=== PATIENT | male | born 1965 | race Caucasian/White ===

== ENCOUNTER 2016-12-27 09:37 | Inpatient (IN) | payer OTHER ==
[2016-12-27 10:04] VITALS: BMI 28.5
--- NOTE | 2016-12-27 10:59 | HP ---
[id number] 4d 4-Moderate,w/Arms Extend Anxiety: 4-Mod. Anxious/Guarded Agitation: 1-Slight > Activity Paroxysmal Sweats: 1-Minimal Palms Moist Orientation: 1-Uncertain about Date Tacttile Disturbances: 1-Very Mild Itch/Numbness Auditory Disturbances: 1-Very Mild Visual Disturbances: 1-Very Mild Sensitivity Headache: 1-Very Mild CIWA-Ar Total Score: 16 Admission ROS BHS - HPI Chief Complaint: I want to stop, I'm tired Allergies/Adverse Reactions: Allergies Allergy/AdvReac Type Severity Reaction Status Date / Time No Known Allergies Allergy Verified 12/27/16 10:45 History of Present Illness: 51 yo gentleman here for detox from alcohol/cocaine - one of several admissions for detox, history of alcohol related black outs - last seizure about two years ago. Exam Limitations: Clinical Condition - Ebola screening Have you traveled outside of the country in the last 21 days: No Have you had contact with anyone from an Ebola affected area: No Have you been sick,other than usual withdrawal symptoms: No Do you have a fever: No - Review of Systems Constitutional: Chills, Loss of Appetite, Malaise, Changes in sleep, Weakness EENT: reports: Blurred Vision Respiratory: reports: No Symptoms reported Cardiac: reports: No Symptoms Reported GI: reports: Nausea, Indigestion : reports: Frequency Musculoskeletal: reports: No Symptoms Reported Integumentary: reports: Dryness Neuro: reports: Headache, Seizure, Tremors Endocrine: reports: No Symptoms Reported Hematology: reports: No Symptoms Reported Psychiatric: reports: Judgement Intact, Mood/Affect Appropiate, Anxious Other Systems: Reviewed and Negative Patient History - Patient Medical History Hx Anemia: No Hx Asthma: No Hx Chronic Obstructive Pulmonary Disease (COPD): No Hx Cancer: No Hx Cardiac Disorders: No Hx Congestive Heart Failure: No Hx Hypertension: No Hx Hypercholesterolemia: No Hx Pacemaker: No HX Cerebrovascular Accident: No Hx Seizures: Yes (alcohol related - last about 2 years ago) Hx Dementia: No Hx Diabetes: No Hx Gastrointestinal Disorders: No Hx Liver Disease: No Hx Genitourinary Disorders: No Hx Sexually Transmitted Disorders: No Hx Renal Disease (ESRD): No Hx Thyroid Disease: No Hx Human Immunodeficiency Virus (HIV): No (neg 2013) Hx Hepatitis C: No Hx Depression: Yes (on meds) Hx Suicide Attempt: No Hx Bipolar Disorder: No Hx Schizophrenia: No - Patient Surgical History Past Surgical History: No Hx Neurologic Surgery: No Hx Cataract Extraction: No Hx Cardiac Surgery: No Hx Lung Surgery: No Hx Breast Surgery: No Hx Breast Biopsy: No Hx Abdominal Surgery: No Hx Appendectomy: No Hx Cholecystectomy: No Hx Genitourinary Surgery: No Hx Section: No Hx Orthopedic Surgery: No Hx Hysterectomy: No Anesthesia Reaction: No - PPD History Previous Implant?: Yes Documented Results: Negative w/proof Date: 06/19/16 PPD to be Administered?: No - Reproductive History Patient is a Female of Child Bearing Age (11 -55 yrs old): No (male) - Smoking Cessation Smoking history: Current every day smoker Have you smoked in the past 12 months: Yes Aproximately how many cigarettes per day: 3 Hx Chewing Tobacco Use: No Initiated information on smoking cessation: Yes 'Breaking Loose' booklet given: 12/27/16 (give on floor) - Substance & Tx. History Hx Alcohol Use: Yes Hx Substance Use: Yes Substance Use Type: Alcohol, Cocaine Hx Substance Use Treatment: Yes (detox) - Substances Abused Alcohol Route: Oral Frequency: Daily Amount used: 4 pints Vodka and 4 40 oz. Age of first use: 21 Date of Last Use: 12/27/16 Cocaine Route: Inhalation Frequency: Daily Amount used: $50 Age of first use: 25 Date of Last Use: 12/27/16 Family Disease History - Family Disease History Family Disease History: Heart Disease: Mother ( 2nd cva), Other: Father (alive, no med problems), Mother Admission Physical Exam [facility] - Vital Signs Vital Signs: Vital Signs - 24 hr 12/27/16 10:01 Temperature 97.1 F L Pulse Rate 92 H Respiratory 20 Rate Blood Pressure 161/98 - Physical General Appearance: Yes: Nourished, Appropriately Dressed, Mild Distress, Anxious HEENTM: Yes: Hearing grossly Normal, Normal ENT Inspection, Normocephalic, Normal Voice Respiratory: Yes: Normal Breath Sounds, No Respiratory Distress Neck: Yes: No masses,lesions,Nodules, Supple Breast: Yes: Breast Exam Deferred Cardiology: Yes: Regular Rhythm, Regular Rate Abdominal: Yes: Soft Genitourinary: Yes: Frequency Back: Yes: Normal Inspection Musculoskeletal: Yes: full range of Motion, Gait Steady Extremities: Yes: Normal Inspection, Normal Range of Motion, Tremors Neurological: Yes: Fully Oriented, Alert, Motor Strength 5/5, Normal Mood/Affect , Normal Response Integumentary: Yes: Normal Color, Warm Lymphatic: Yes: Within Normal Limits - Diagnostic (1) Alcohol dependence Current Visit: Yes Status: Chronic Qualifiers: Substance use status: uncomplicated Qualified Code(s): F10.20 - Alcohol dependence, uncomplicated (2) Cocaine dependence Current Visit: Yes Status: Chronic Qualifiers: Substance use status: uncomplicated Qualified Code(s): F14.20 - Cocaine dependence, uncomplicated (3) Nicotine dependence Current Visit: Yes Status: Chronic Qualifiers: Nicotine product type: cigarettes Cleared for Admission S - Detox or Rehab [facility] Level of Care: Medically Managed Detox Regimen/Protocol: Librium S Breath Alcohol Content Breath Alcohol Content: 0 Urine Drug Screen - Results Drug Screen Negative: No Urine Drug Screen Results: BZO-Benzodiazepines
[2016-12-27] MEDS ORDERED: MAGNESIUM HYDROX 2400MG/30ML ORAL SUSPENSION 30 ML CUP PO PRN (11:15)
[2016-12-27] MEDS ORDERED: MENTHOL/PHENOL 1 EACH UD MM PRN (11:15)
[2016-12-27] MEDS ORDERED: diphenhydrAMINE HCL 50 MG CAPSULE PO PRN (11:15)
[2016-12-27] MEDS ORDERED: LOPERAMIDE HCL 2 MG CAPSULE PO PRN (11:15)
[2016-12-27] MEDS ORDERED: MAGNESIUM CITRATE 300 ML BOTTLE PO PRN (11:15)
[2016-12-27] MEDS ORDERED: chlordiazePOXIDE HCL 25 MG CAPSULE PO ONE (11:15)
[2016-12-27] MEDS ORDERED: P-EPHED 60MG/TRIPROLIDI 2.5MG TABLET PO PRN (11:15)
[2016-12-27] MEDS ORDERED: IBUPROFEN 400 MG TABLET (FP) PO PRN (11:15)
[2016-12-27] MEDS ORDERED: NICOTINE POLACRILEX 2 MG GUM BUC PRN (11:15)
[2016-12-27] MEDS ORDERED: ACETAMINOPHEN 325 MG TABLET (FP) PO PRN (11:15)
[2016-12-27] MEDS ORDERED: MAG HYDROX/AL HYDROX/SIMETH 30 ML UNIT-DOSE CUP PO PRN (11:15)
[2016-12-27] MEDS ORDERED: guaiFENesin/D-METHORPHAN HB 10 ML UNIT-DOSE CUPS PO PRN (11:15)
[2016-12-27] MEDS: chlordiazePOXIDE HCL 25 MG CAPSULE PO SCH ×2 (16:48→22:52)
[2016-12-27 17:56] LABS: URINE APPEARANCE CLEAR; URINE BILIRUBIN NEGATIVE (NEGATIVE); URINE BLOOD NEGATIVE (NEGATIVE); URINE COLOR STRAW; URINE GLUCOSE (UA) NEGATIVE (NEGATIVE); URINE KETONE NEGATIVE (NEGATIVE); URINE LEUK ESTERASE NEGATIVE (NEGATIVE); URINE NITRITE NEGATIVE (NEGATIVE); URINE PROTEIN NEGATIVE (NEGATIVE); URINE UROBILINOGEN NEGATIVE E.U./dl (0.2-1.0)
[2016-12-27] MEDS: chlordiazePOXIDE HCL 25 MG CAPSULE PO PRN (18:58)
[2016-12-27] MEDS: cloNIDine HCL 0.1 MG TABLET PO PRN (22:52)
[2016-12-27] MEDS: THIAMINE HCL 100 MG TABLET (FP) PO SCH (22:52)
[2016-12-28] MEDS: chlordiazePOXIDE HCL 25 MG CAPSULE PO SCH ×4 (05:38→22:43)
[2016-12-28] MEDS: cloNIDine HCL 0.1 MG TABLET PO PRN ×2 (10:27→22:43)
[2016-12-28] MEDS: PRENATAL VITAMINS W/ FOLIC ACID TABLET (FP) PO SCH (10:27)
[2016-12-28 10:32] LABS: MCH 31.4 pg (25.7-33.7); MCHC 33.6 g/dl (32.0-35.9); MEAN CELL VOLUME 93.4 fl (80-96); MEAN PLT VOLUME 9.5 fl (7.5-11.1); PLATELET COUNT 293 K/MM3 (134-434); RDW 13.9 % (11.9-15.9); WHITE BLOOD COUNT 6.7 K/mm3 (4.0-10.0)
[2016-12-28 10:54] LABS: ALBUMIN 3.7 g/dl (3.4-5.0); ALK PHOS 56 U/L (45-117); ANION GAP 12 (8-16); BILIRUBIN,TOTAL 0.5 mg/dL (0.2-1.0); CALCIUM 8.9 mg/dL (8.5-10.1); CO2 21 mmol/L (21-32); CREATININE 1.2 mg/dL (0.7-1.3); GLUCOSE,RANDOM 76 mg/dL (74-106); SGOT/AST 24 U/L (15-37); SGPT/ALT 34 U/L (12-78); TOT PROT 7.3 g/dl (6.4-8.2)
--- NOTE | 2016-12-28 11:51 | PN ---
S CIWA - CIWA Score Nausea/Vomitin Muscle Tremors: 3 Anxiety: 3 Agitation: 2 Paroxysmal Sweats: 1-Minimal Palms Moist Orientation: 0-Oriented Tacttile Disturbances: 1-Very Mild Itch/Numbness Auditory Disturbances: 1-Very Mild Visual Disturbances: 1-Very Mild Sensitivity Headache: 2-Mild CIWA-Ar Total Score: 17 BHS Progress Note (SOAP) Subjective: alert,irritable,anxious,interrupted sleep,tremor Objective: 12/28/16 11:56 Vital Signs Temperature 98.1 F 12/28/16 09:31 Pulse Rate 92 H 12/28/16 09:31 Respiratory Rate 18 12/28/16 09:31 Blood Pressure 128/95 12/28/16 09:31 O2 Sat by Pulse Oximetry (%) ekg nsr,normal ecg Laboratory Last Values WBC 6.7 K/mm3 (4.0-10.0) 12/28/16 07:45 RBC 4.41 M/mm3 (4.00-5.60) 12/28/16 07:45 Hgb 13.8 GM/dL (11.7-16.9) D 12/28/16 07:45 Hct 41.1 % (35.4-49) 12/28/16 07:45 MCV 93.4 fl (80-96) 12/28/16 07:45 MCHC 33.6 g/dl (32.0-35.9) 12/28/16 07:45 RDW 13.9 % (11.9-15.9) 12/28/16 07:45 Plt Count 293 K/MM3 (134-434) 12/28/16 07:45 MPV 9.5 fl (7.5-11.1) 12/28/16 07:45 Sodium 137 mmol/L (136-145) 12/28/16 07:45 Potassium 4.1 mmol/L (3.5-5.1) 12/28/16 07:45 Chloride 104 mmol/L (98-107) 12/28/16 07:45 Carbon Dioxide 21 mmol/L (21-32) 12/28/16 07:45 Anion Gap 12 (8-16) 12/28/16 07:45 BUN 24 mg/dL (7-18) H D 12/28/16 07:45 Creatinine 1.2 mg/dL (0.7-1.3) 12/28/16 07:45 Creat Clearance w eGFR > 60 (>60) 12/28/16 07:45 Random Glucose 76 mg/dL (74-106) 12/28/16 07:45 Calcium 8.9 mg/dL (8.5-10.1) 12/28/16 07:45 Total Bilirubin 0.5 mg/dL (0.2-1.0) 12/28/16 07:45 AST 24 U/L (15-37) D 12/28/16 07:45 ALT 34 U/L (12-78) 12/28/16 07:45 Alkaline Phosphatase 56 U/L (45-117) 12/28/16 07:45 Total Protein 7.3 g/dl (6.4-8.2) 12/28/16 07:45 Albumin 3.7 g/dl (3.4-5.0) 12/28/16 07:45 Urine Color Straw 12/27/16 17:40 Urine Appearance Clear 12/27/16 17:40 Urine pH 5.0 (5.0-8.0) 12/27/16 17:40 Ur Specific [place] 1.012 (1.001-1.035) 12/27/16 17:40 Urine Protein Negative (NEGATIVE) 12/27/16 17:40 Urine Glucose (UA) Negative (NEGATIVE) 12/27/16 17:40 Urine Ketones Negative (NEGATIVE) 12/27/16 17:40 Urine Blood Negative (NEGATIVE) 12/27/16 17:40 Urine Nitrite Negative (NEGATIVE) 12/27/16 17:40 Urine Bilirubin Negative (NEGATIVE) 12/27/16 17:40 Urine Urobilinogen Negative E.U./dl (0.2-1.0) 12/27/16 17:40 Ur Leukocyte Esterase Negative (NEGATIVE) 12/27/16 17:40 labs pending Assessment: 12/28/16 11:58 withdrawal symptom Plan: continue detox,bun 24,creatinine 1.2,encourage oral fluid,repeat cmp in am
[2016-12-28] MEDS: chlordiazePOXIDE HCL 25 MG CAPSULE PO PRN ×2 (14:17→19:02)
[2016-12-28] MEDS: THIAMINE HCL 100 MG TABLET (FP) PO SCH (22:43)
--- NOTE | 2016-12-29 00:48 | EKG ---
Test Reason : Blood Pressure : / mmHG Vent. Rate : 091 BPM Atrial Rate : 091 BPM P-R Int : 138 ms QRS Dur : 074 ms QT Int : 352 ms P-R-T Axes : 046 008 -01 degrees QTc Int : 432 ms NORMAL SINUS RHYTHM NORMAL ECG NO PREVIOUS ECGS AVAILABLE Confirmed by MOIZ FERNANDEZ MD ([id number]) on 12/29/2016 12:48:48 AM Referred By: Confirmed By:MOIZ FERNANDEZ MD
[2016-12-29] MEDS: chlordiazePOXIDE HCL 25 MG CAPSULE PO SCH ×2 (05:48→11:07)
[2016-12-29 10:07] LABS: ALBUMIN 3.1 g/dl (3.4-5.0); CALCIUM 8.6 mg/dL (8.5-10.1)
[2016-12-29 10:12] LABS: ALK PHOS 46 U/L (45-117); ANION GAP 10 (8-16); BILIRUBIN,TOTAL 0.5 mg/dL (0.2-1.0); CO2 25 mmol/L (21-32); CREATININE 1.2 mg/dL (0.7-1.3); GLUCOSE,RANDOM 102 mg/dL (74-106); SGOT/AST 18 U/L (15-37); SGPT/ALT 26 U/L (12-78)
[2016-12-29] MEDS: PRENATAL VITAMINS W/ FOLIC ACID TABLET (FP) PO SCH (11:07)
--- NOTE | 2016-12-29 12:17 | PN ---
S CIWA - CIWA Score Nausea/Vomitin Muscle Tremors: 3 Anxiety: 2 Agitation: 2 Paroxysmal Sweats: 1-Minimal Palms Moist Orientation: 0-Oriented Tacttile Disturbances: 1-Very Mild Itch/Numbness Auditory Disturbances: 1-Very Mild Visual Disturbances: 1-Very Mild Sensitivity Headache: 2-Mild CIWA-Ar Total Score: 16 S Progress Note (SOAP) Subjective: ALERT,IRRITABLE,ANXIOUS,INTERRUPTED SLEEP,TREMOR Objective: 12/29/16 12:15 Vital Signs Temperature 97.3 F L 12/29/16 10:00 Pulse Rate 76 12/29/16 10:00 Respiratory Rate 16 12/29/16 10:00 Blood Pressure 114/76 12/29/16 10:00 O2 Sat by Pulse Oximetry (%) Laboratory Last Values WBC 6.7 K/mm3 (4.0-10.0) 12/28/16 07:45 RBC 4.41 M/mm3 (4.00-5.60) 12/28/16 07:45 Hgb 13.8 GM/dL (11.7-16.9) D 12/28/16 07:45 Hct 41.1 % (35.4-49) 12/28/16 07:45 MCV 93.4 fl (80-96) 12/28/16 07:45 MCHC 33.6 g/dl (32.0-35.9) 12/28/16 07:45 RDW 13.9 % (11.9-15.9) 12/28/16 07:45 Plt Count 293 K/MM3 (134-434) 12/28/16 07:45 MPV 9.5 fl (7.5-11.1) 12/28/16 07:45 Sodium 140 mmol/L (136-145) 12/29/16 06:15 Potassium 3.8 mmol/L (3.5-5.1) 12/29/16 06:15 Chloride 105 mmol/L (98-107) 12/29/16 06:15 Carbon Dioxide 25 mmol/L (21-32) 12/29/16 06:15 Anion Gap 10 (8-16) 12/29/16 06:15 BUN 15 mg/dL (7-18) D 12/29/16 06:15 Creatinine 1.2 mg/dL (0.7-1.3) 12/29/16 06:15 Creat Clearance w eGFR > 60 (>60) 12/29/16 06:15 Random Glucose 102 mg/dL (74-106) D 12/29/16 06:15 Calcium 8.6 mg/dL (8.5-10.1) 12/29/16 06:15 Total Bilirubin 0.5 mg/dL (0.2-1.0) 12/29/16 06:15 AST 18 U/L (15-37) D 12/29/16 06:15 ALT 26 U/L (12-78) D 12/29/16 06:15 Alkaline Phosphatase 46 U/L (45-117) 12/29/16 06:15 Total Protein 6.0 g/dl (6.4-8.2) L 12/29/16 06:15 Albumin 3.1 g/dl (3.4-5.0) L 12/29/16 06:15 Urine Color Straw 12/27/16 17:40 Urine Appearance Clear 12/27/16 17:40 Urine pH 5.0 (5.0-8.0) 12/27/16 17:40 Ur Specific [place] 1.012 (1.001-1.035) 12/27/16 17:40 Urine Protein Negative (NEGATIVE) 12/27/16 17:40 Urine Glucose (UA) Negative (NEGATIVE) 12/27/16 17:40 Urine Ketones Negative (NEGATIVE) 12/27/16 17:40 Urine Blood Negative (NEGATIVE) 12/27/16 17:40 Urine Nitrite Negative (NEGATIVE) 12/27/16 17:40 Urine Bilirubin Negative (NEGATIVE) 12/27/16 17:40 Urine Urobilinogen Negative E.U./dl (0.2-1.0) 12/27/16 17:40 Ur Leukocyte Esterase Negative (NEGATIVE) 12/27/16 17:40 RPR Titer Nonreactive (NONREACTIVE) 12/28/16 07:45 Assessment: 12/29/16 12:16 WITHDRAWAL SYMPTOM Plan: CONTINUE DETOX
--- NOTE | 2016-12-29 12:24 | CONSULT ---
[facility] Psychiatric Consult - Data Date of interview: 12/29/16 Admission source: [facility] Identifying data: Another admission to [facility] for this 51 y/o male seeking detox treatment on for alcohol and cocaine dependence.Patient is single without children,domiciled,unemployed and dependent on relatives/ friends for financial assistance. Substance Abuse History: Smoking Cessation. Smoking history: Current every day smoker. Have you smoked in the past 12 months: Yes. Aproximately how many cigarettes per day: 3. Hx Chewing Tobacco Use: No. Initiated information on smoking cessation: Yes. 'Breaking Loose' booklet given: 12/27/16 (give on floor ). - Substance & Tx. History. Hx Alcohol Use: Yes. Hx Substance Use: Yes. Substance Use Type: Alcohol, Cocaine. Hx Substance Use Treatment: Yes (detox). - Substances Abused. Alcohol. Route: Oral. Frequency: Daily. Amount used: 4 pints Vodka and 4 40 oz. Age of first use: 21. Date of Last Use: 12/27. Cocaine. Route: Inhalation. Frequency: Daily. Amount used: $50. Age of first use: 25. Date of Last Use: 12/27/16. Confirmed by the patient in this interview. Medical History: History of hemorrhoids and withdrawal seizures. Psychiatric History: No history of psychiatric hospitalizations.Patient is still followed by Dr Zhu at [facility].Diagnosed with MDD and Anxiety Disorder.Mr Serna continues to be on celexa 20 mg/day + zolpidem 10 mg/ hs.Patient denies history of suicide attempts. Physical/Sexual Abuse/Trauma History: Patient denies. Additional Comment: Urine Drug Screen Results: BZO-Benzodiazepines.Noted. Mental Status Exam - Mental Status Exam Alert and Oriented to: Time, Place, Person Cognitive Function: Good Patient Appearance: Well Groomed Mood: Withdrawn, Anxious, Apprehensive Affect: Mood Congruent, Constricted Patient Behavior: Fatigued, Appropriate, Cooperative Speech Pattern: Clear Voice Loudness: Normal Thought Process: Goal Oriented Thought Disorder: Not Present Hallucinations: Denies Suicidal Ideation: Denies Homicidal Ideation: Denies Insight/Judgement: Poor Sleep: Poorly, Difficulty falling asleep Appetite: Good Muscle strength/Tone: Normal Gait/Station: Normal Psychiatric Findings - Problem List (Ethan 1, 2,3) (1) Alcohol dependence Current Visit: Yes Status: Acute Qualifiers: Substance use status: uncomplicated Qualified Code(s): F10.20 - Alcohol dependence, uncomplicated (2) Cocaine dependence Current Visit: Yes Status: Acute Qualifiers: Substance use status: uncomplicated Qualified Code(s): F14.20 - Cocaine dependence, uncomplicated (3) Nicotine dependence Current Visit: Yes Status: Acute Qualifiers: Nicotine product type: cigarettes (4) Drug-induced mood disorder Current Visit: Yes Status: Acute (5) Depressive disorder Current Visit: Yes Status: Acute (6) Hemorrhoids Current Visit: No Status: Chronic Qualifiers: Hemorrhoid type: unspecified Qualified Code(s): K64.9 - Unspecified hemorrhoids (7) Insomnia Current Visit: Yes Status: Acute - Initial Treatment Plan Initial Treatment Plan: Psychoeducation.Detoxification.Medications : celexa 20 mg po daily + zolpidem 10 mg po hs.Side effects/benefits discussed with the patient.Made aware of the risk of parasomnias (erik).He agrees with this plan.Observation.
[2016-12-29] MEDS: CITALOPRAM HYDROBROMIDE 20 MG TABLET (FP) PO SCH (12:30)
[2016-12-29] MEDS: chlordiazePOXIDE HCL 25 MG CAPSULE PO PRN ×2 (14:23→19:36)
[2016-12-29] MEDS: chlordiazePOXIDE 5 MG CAPSULE PO SCH ×2 (17:32→22:44)
[2016-12-29] MEDS: THIAMINE HCL 100 MG TABLET (FP) PO SCH (22:44)
[2016-12-29] MEDS: ZOLPIDEM TARTRATE 10 MG TABLET (PARK CARE ONLY) PO PRN (22:47)
[2016-12-29] MEDS: cloNIDine HCL 0.1 MG TABLET PO PRN (22:47)
[2016-12-30] MEDS: chlordiazePOXIDE 5 MG CAPSULE PO SCH ×2 (06:10→10:29)
--- NOTE | 2016-12-30 08:44 | PN ---
BHS Progress Note (SOAP) Subjective: interrupted sleep, sweats ,shakes , lbp Objective: 12/30/16 08:43 Vital Signs Temperature 97.3 F L 12/30/16 06:00 Pulse Rate 62 12/30/16 06:00 Respiratory Rate 18 12/30/16 06:00 Blood Pressure 112/75 12/30/16 06:00 O2 Sat by Pulse Oximetry (%) Laboratory Tests 12/27/16 12/28/16 12/28/16 17:40 07:45 07:45 WBC 6.7 RBC 4.41 Hgb 13.8 D Hct 41.1 MCV 93.4 MCHC 33.6 RDW 13.9 Plt Count 293 MPV 9.5 Sodium 137 Potassium 4.1 Chloride 104 Carbon Dioxide 21 Anion Gap 12 BUN 24 H D Creatinine 1.2 Creat Clearance w eGFR > 60 Random Glucose 76 Calcium 8.9 Total Bilirubin 0.5 AST 24 D ALT 34 Alkaline Phosphatase 56 Total Protein 7.3 Albumin 3.7 Urine Color Straw Urine Appearance Clear Urine pH 5.0 Ur Specific [place] 1.012 Urine Protein Negative Urine Glucose (UA) Negative Urine Ketones Negative Urine Blood Negative Urine Nitrite Negative Urine Bilirubin Negative Urine Urobilinogen Negative Ur Leukocyte Esterase Negative RPR Titer 12/28/16 12/29/16 07:45 06:15 WBC RBC Hgb Hct MCV MCHC RDW Plt Count MPV Sodium 140 Potassium 3.8 Chloride 105 Carbon Dioxide 25 Anion Gap 10 BUN 15 D Creatinine 1.2 Creat Clearance w eGFR > 60 Random Glucose 102 D Calcium 8.6 Total Bilirubin 0.5 AST 18 D ALT 26 D Alkaline Phosphatase 46 Total Protein 6.0 L Albumin 3.1 L Urine Color Urine Appearance Urine pH Ur Specific [place] Urine Protein Urine Glucose (UA) Urine Ketones Urine Blood Urine Nitrite Urine Bilirubin Urine Urobilinogen Ur Leukocyte Esterase RPR Titer Nonreactive pt aox3 in nad , mild tremor Assessment: 12/30/16 08:43 withdrawl sx's lbp Plan: cont. detox increase fluids motrin prn d/c in am
[2016-12-30] MEDS: CITALOPRAM HYDROBROMIDE 20 MG TABLET (FP) PO SCH (10:29)
[2016-12-30] MEDS: cloNIDine HCL 0.1 MG TABLET PO PRN ×2 (10:29→22:44)
[2016-12-30] MEDS: PRENATAL VITAMINS W/ FOLIC ACID TABLET (FP) PO SCH (10:29)
[2016-12-30] MEDS: hydrOXYzine PAMOATE 50 MG CAPSULE (FP) PO PRN ×2 (13:11→20:14)
[2016-12-30] MEDS: chlordiazePOXIDE HCL 10 MG CAPSULE PO SCH ×2 (17:38→22:44)
[2016-12-30] MEDS: ZOLPIDEM TARTRATE 10 MG TABLET (PARK CARE ONLY) PO PRN (22:44)
[2016-12-30] MEDS: THIAMINE HCL 100 MG TABLET (FP) PO SCH (22:44)
[2016-12-31] MEDS: chlordiazePOXIDE HCL 10 MG CAPSULE PO SCH (05:58)
[2016-12-31] MEDS: CITALOPRAM HYDROBROMIDE 20 MG TABLET (FP) PO SCH (09:07)
[2016-12-31] MEDS: PRENATAL VITAMINS W/ FOLIC ACID TABLET (FP) PO SCH (09:07)
--- NOTE | 2016-12-31 09:07 | DS ---
[facility] Detox Discharge Summary Admission Date: 12/27/16 Discharge Date: 12/31/16 - History Present History: Alcohol Dependence, Cocaine Dependence - Physical Exam Results Vital Signs: Vital Signs Temperature 97.2 F L 12/31/16 06:18 Pulse Rate 61 12/31/16 06:18 Respiratory Rate 16 12/31/16 06:18 Blood Pressure 126/77 12/31/16 06:18 O2 Sat by Pulse Oximetry (%) - Treatment Hospital Course: Detox Protocol Followed, Detoxed Safely, Responded well, Discharged Condition Good - Medication Discharge Medications: Ambulatory Orders Citalopram Hydrobromide [Celexa -] 20 mg PO DAILY #30 tablet 06/18/16 Citalopram Hydrobromide [Celexa -] 20 mg PO DAILY #30 tablet 12/29/16 Zolpidem Tartrate [Ambien] 5 mg PO HS #10 tablet MDD 5 mg 12/30/16 - Diagnosis (1) Alcohol dependence Current Visit: Yes Status: Acute Qualifiers: Substance use status: uncomplicated Qualified Code(s): F10.20 - Alcohol dependence, uncomplicated (2) Cocaine dependence Current Visit: Yes Status: Chronic Qualifiers: Substance use status: uncomplicated Qualified Code(s): F14.20 - Cocaine dependence, uncomplicated (3) Depressive disorder Current Visit: Yes Status: Chronic (4) Insomnia Current Visit: Yes Status: Chronic (5) Nicotine dependence Current Visit: Yes Status: Chronic Qualifiers: Nicotine product type: cigarettes - AMA Did Patient Leave Against Medical Advice: No
[2016-12-31 10:00] VITALS: BP 126/79; PULSE 72; TEMP 97.3
== END 2016-12-31 09:35 | disposition home or self-care (01) | DRG 774 ==
LOC: YASAS 09:37 → Y6N 11:48
PROVIDERS: ADMIT Internal Medicine; ATTEND Internal Medicine Addiction Medicine
PROC: HZ2ZZZZ Detoxification Services for Substance Abuse Treatment (ICD-10-PCS; principal; 2016-12-27)
DX: F10.230 Alcohol dependence with withdrawal, uncomplicated (principal); F14.20 Cocaine dependence, uncomplicated; F17.210 Nicotine dependence, cigarettes, uncomplicated; F32.9 Major depressive disorder, single episode, unspecified; F19.24 Other psychoactive substance dependence with psychoactive substance-induced mood disorder; G47.00 Insomnia, unspecified; M54.5 Low back pain; K64.9 Unspecified hemorrhoids; Z86.69 Personal history of other diseases of the nervous system and sense organs
CPT/HCPCS: 36415; 80053; 81003; 85027; 86593; 93005; 93010

== ENCOUNTER 2017-01-30 08:40 | Inpatient (IN) | payer OTHER ==
[2017-01-30 10:46] VITALS: BMI 26.7
--- NOTE | 2017-01-30 11:40 | HP ---
CIWA Score - CIWA Score Nausea/Vomitin Muscle Tremors: 4-Moderate,w/Arms Extend Anxiety: 4-Mod. Anxious/Guarded Agitation: 4-Moderately Restless Paroxysmal Sweats: 3 Orientation: 3-Disoriented Date>2 days Tacttile Disturbances: 0-None Auditory Disturbances: 0-None Visual Disturbances: 0-None Headache: 0-None Present CIWA-Ar Total Score: 21 Admission ROS BHS - HPI Chief Complaint: Withdrawal sx. Allergies/Adverse Reactions: Allergies Allergy/AdvReac Type Severity Reaction Status Date / Time No Known Allergies Allergy Verified 01/30/17 11:00 History of Present Illness: 51 y/o man with a long hx. of alcoholism is admitted for detox. Pt. was here last month for detox,he relapsed within a few days of D/C. Pt. says he'll go to rehab this time. Exam Limitations: No Limitations - Ebola screening Have you traveled outside of the country in the last 21 days: No Have you had contact with anyone from an Ebola affected area: No Have you been sick,other than usual withdrawal symptoms: No Do you have a fever: No - Review of Systems Constitutional: Diaphoresis EENT: reports: No Symptoms Reported Respiratory: reports: No Symptoms reported Cardiac: reports: No Symptoms Reported GI: reports: Nausea, Abdominal cramping : reports: No Symptoms Reported Musculoskeletal: reports: Back Pain Integumentary: reports: Sweating Neuro: reports: Seizure (last 2 yrs. ago), Tremors Endocrine: reports: No Symptoms Reported Hematology: reports: No Symptoms Reported Psychiatric: reports: No Sypmtoms Reported Other Systems: Reviewed and Negative Patient History - Patient Medical History Hx Anemia: No Hx Asthma: No Hx Chronic Obstructive Pulmonary Disease (COPD): No Hx Cancer: No Hx Cardiac Disorders: No Hx Congestive Heart Failure: No Hx Hypertension: No (alcohol induced) Hx Hypercholesterolemia: No Hx Pacemaker: No HX Cerebrovascular Accident: No Hx Seizures: Yes (alcohol related x1 in 2014) Hx Dementia: No Hx Diabetes: No Hx Gastrointestinal Disorders: No Hx Liver Disease: No Hx Genitourinary Disorders: No Hx Sexually Transmitted Disorders: No Hx Renal Disease (ESRD): No Hx Thyroid Disease: No Hx Human Immunodeficiency Virus (HIV): No Hx Hepatitis C: No Hx Depression: Yes (celexa) Hx Suicide Attempt: No Hx Bipolar Disorder: No Hx Schizophrenia: No - Patient Surgical History Past Surgical History: No Hx Neurologic Surgery: No Hx Cataract Extraction: No Hx Cardiac Surgery: No Hx Lung Surgery: No Hx Breast Surgery: No Hx Breast Biopsy: No Hx Abdominal Surgery: No Hx Appendectomy: No Hx Cholecystectomy: No Hx Genitourinary Surgery: No Hx Section: No Hx Orthopedic Surgery: No Hx Hysterectomy: No Anesthesia Reaction: No - PPD History Previous Implant?: Yes Documented Results: Negative w/proof Implanted On Prior [facility] Admission?: Yes Date: 06/19/16 Results: 0 mm PPD to be Administered?: No - Smoking Cessation Smoking history: Current every day smoker Have you smoked in the past 12 months: Yes Aproximately how many cigarettes per day: 2 Cigars Per Day: 0 Hx Chewing Tobacco Use: No Initiated information on smoking cessation: Yes 'Breaking Loose' booklet given: 01/30/17 - Substance & Tx. History Hx Alcohol Use: Yes Hx Substance Use: No Substance Use Type: Alcohol Hx Substance Use Treatment: Yes (Detox) - Substances Abused Alcohol-vodka/beer Route: Oral Frequency: Daily Amount used: 2 pts./3 (40 oz.) Age of first use: 25 Date of Last Use: 01/30/17 Family Disease History - Family Disease History Family Disease History: Heart Disease: Mother ( 2nd cva), Other: Father (alive, no med problems), Mother Admission Physical Exam [facility] - Vital Signs Vital Signs: Vital Signs - 24 hr 01/30/17 10:40 Pulse Rate 97 H Respiratory 18 Rate Blood Pressure 155/114 - Physical General Appearance: Yes: Alcohol on Breath, Tremorous, Irritable, Sweating, Anxious HEENTM: Yes: Within Normal Limits Respiratory: Yes: Chest Non-Tender, Lungs Clear, Normal Breath Sounds Neck: Yes: Supple Breast: Yes: Breast Exam Deferred Cardiology: Yes: Regular Rhythm, Regular Rate, S1, S2 Abdominal: Yes: Normal Bowel Sounds, Non Tender, Soft Genitourinary: Yes: Within Normal Limits Back: Yes: Within Normal Limits Musculoskeletal: Yes: Within Normal Limits Extremities: Yes: Tremors Neurological: Yes: Fully Oriented, Alert Integumentary: Yes: Diaphoresis Lymphatic: Yes: Within Normal Limits - Diagnostic (1) Alcohol dependence with uncomplicated withdrawal Current Visit: Yes Status: Acute Cleared for Admission [facility] - Detox or Rehab [facility] Level of Care: Medically Managed [facility]ox [facility] Breath Alcohol Content Breath Alcohol Content: 0.105 Urine Drug Screen - Results Drug Screen Negative: No Urine Drug Screen Results: BZO-Benzodiazepines
[2017-01-30] MEDS ORDERED: MAGNESIUM CITRATE 300 ML BOTTLE PO PRN (11:46)
[2017-01-30] MEDS ORDERED: diphenhydrAMINE HCL 50 MG CAPSULE PO PRN (11:46)
[2017-01-30] MEDS ORDERED: ACETAMINOPHEN 325 MG TABLET (FP) PO PRN (11:46)
[2017-01-30] MEDS ORDERED: MENTHOL/PHENOL 1 EACH UD MM PRN (11:46)
[2017-01-30] MEDS ORDERED: IBUPROFEN 400 MG TABLET (FP) PO PRN (11:46)
[2017-01-30] MEDS ORDERED: P-EPHED 60MG/TRIPROLIDI 2.5MG TABLET PO PRN (11:46)
[2017-01-30] MEDS ORDERED: hydrOXYzine PAMOATE 50 MG CAPSULE (FP) PO PRN (11:46)
[2017-01-30] MEDS ORDERED: MAGNESIUM HYDROX 2400MG/30ML ORAL SUSPENSION 30 ML CUP PO PRN (11:46)
[2017-01-30] MEDS ORDERED: MAG HYDROX/AL HYDROX/SIMETH 30 ML UNIT-DOSE CUP PO PRN (11:46)
[2017-01-30] MEDS ORDERED: LOPERAMIDE HCL 2 MG CAPSULE PO PRN (11:46)
[2017-01-30] MEDS ORDERED: NICOTINE POLACRILEX 2 MG GUM BUC PRN (11:46)
[2017-01-30] MEDS ORDERED: guaiFENesin/D-METHORPHAN HB 10 ML UNIT-DOSE CUPS PO PRN (11:46)
[2017-01-30] MEDS ORDERED: chlordiazePOXIDE HCL 25 MG CAPSULE PO ONE (11:50)
[2017-01-30] MEDS: cloNIDine HCL 0.1 MG TABLET PO PRN (15:07)
[2017-01-30] MEDS: chlordiazePOXIDE HCL 25 MG CAPSULE PO SCH ×2 (17:03→22:02)
--- NOTE | 2017-01-30 17:30 | CONSULT ---
[facility] Psychiatric Consult - Data Date of interview: 01/30/17 Admission source: [facility] Identifying data: This is one of multiple admissions to [facility] for this 51 y/ o male seeking detox treatment on for alcohol and cocaine dependence.Patient is single without children,domiciled,unemployed and dependent on relatives/friends for financial support. Substance Abuse History: - Smoking Cessation. Smoking history: Current every day smoker. Have you smoked in the past 12 months: Yes. Aproximately how many cigarettes per day: 2. Cigars Per Day: 0. Hx Chewing Tobacco Use: No. Initiated information on smoking cessation: Yes. 'Breaking Loose' booklet given : 01/30/17. - Substance & Tx. History. Hx Alcohol Use: Yes. Hx Substance Use : No. Substance Use Type: Alcohol. Hx Substance Use Treatment: Yes (Detox). - Substances Abused. Alcohol-vodka/beer. Route: Oral. Frequency: Daily. Amount used: 2 pts./3 (40 oz.). Age of first use: 25. Date of Last Use: . Confirmed by patient. Medical History: History of hemorrhoids and withdrawal seizures. Psychiatric History: No history of psychiatric hospitalizations.Patient gets his OPD care at [facility] mental health clinic.Diagnosed with MDD and Anxiety Disorder.Mr Serna continues to be on celexa 20 mg/day + zolpidem 10 mg/ hs.Patient denies history of suicide attempts. Physical/Sexual Abuse/Trauma History: Patient denies. Additional Comment: Urine Drug Screen Results: BZO-Benzodiazepines.Noted. Mental Status Exam - Mental Status Exam Alert and Oriented to: Time, Place, Person Cognitive Function: Good Patient Appearance: Well Groomed Mood: Withdrawn, Anxious, Apprehensive Affect: Mood Congruent Patient Behavior: Fatigued, Appropriate, Cooperative Speech Pattern: Clear, Appropriate Voice Loudness: Normal Thought Process: Goal Oriented Thought Disorder: Not Present Hallucinations: Denies Suicidal Ideation: Denies Homicidal Ideation: Denies Insight/Judgement: Poor Sleep: Poorly, Difficulty falling asleep Appetite: Good Muscle strength/Tone: Normal Gait/Station: Normal Psychiatric Findings - Problem List ([place] 1, 2,3) (1) Alcohol dependence with uncomplicated withdrawal Current Visit: Yes Status: Acute (2) Cocaine dependence Current Visit: Yes Status: Acute Qualifiers: Substance use status: uncomplicated Qualified Code(s): F14.20 - Cocaine dependence, uncomplicated (3) Nicotine dependence Current Visit: Yes Status: Acute Qualifiers: Nicotine product type: cigarettes (4) Drug-induced mood disorder Current Visit: Yes Status: Acute (5) Substance induced mood disorder Current Visit: Yes Status: Acute (6) Depressive disorder Current Visit: Yes Status: Chronic (7) Hemorrhoids Current Visit: Yes Status: Chronic Qualifiers: Hemorrhoid type: unspecified Qualified Code(s): K64.9 - Unspecified hemorrhoids (8) Insomnia Current Visit: Yes Status: Chronic - Initial Treatment Plan Initial Treatment Plan: Psychoeducation.Detoxification.Medicaions : celexa 20 mg po daily + zolpidem 10 mg po hs.Side effects/benefits discussed with patient.He agrees with this careplan.Observation.Scripts not needed at discharge (filled scripts on 01/21/17).
[2017-01-30] MEDS ORDERED: ZOLPIDEM TARTRATE 5 MG TABLET PO PRN (17:39)
[2017-01-30] MEDS: chlordiazePOXIDE HCL 25 MG CAPSULE PO PRN (18:59)
[2017-01-30 20:04] LABS: URINE APPEARANCE CLEAR; URINE BILIRUBIN NEGATIVE (NEGATIVE); URINE BLOOD NEGATIVE (NEGATIVE); URINE COLOR YELLOW; URINE GLUCOSE (UA) NEGATIVE (NEGATIVE); URINE KETONE NEGATIVE (NEGATIVE); URINE LEUK ESTERASE NEGATIVE (NEGATIVE); URINE NITRITE NEGATIVE (NEGATIVE); URINE PROTEIN NEGATIVE (NEGATIVE); URINE UROBILINOGEN NEGATIVE E.U./dl (0.2-1.0)
[2017-01-30] MEDS: THIAMINE HCL 100 MG TABLET (FP) PO SCH (22:02)
[2017-01-30] MEDS: ZOLPIDEM TARTRATE 10 MG TABLET (PARK CARE ONLY) PO PRN (22:02)
[2017-01-31] MEDS: chlordiazePOXIDE HCL 25 MG CAPSULE PO SCH ×4 (05:30→22:03)
[2017-01-31] MEDS: chlordiazePOXIDE HCL 25 MG CAPSULE PO PRN ×3 (08:21→19:19)
[2017-01-31] MEDS: PRENATAL VITAMINS W/ FOLIC ACID TABLET (FP) PO SCH (10:10)
[2017-01-31] MEDS: CITALOPRAM HYDROBROMIDE 20 MG TABLET (FP) PO SCH (10:10)
[2017-01-31 10:32] LABS: MCH 32.1 pg (25.7-33.7); MCHC 33.7 g/dl (32.0-35.9); MEAN CELL VOLUME 95.3 fl (80-96); MEAN PLT VOLUME 8.6 fl (7.5-11.1); PLATELET COUNT 349 K/MM3 (134-434); RDW 13.3 % (11.9-15.9); WHITE BLOOD COUNT 9.2 K/mm3 (4.0-10.0)
[2017-01-31 11:21] LABS: ALBUMIN 3.8 g/dl (3.4-5.0); ALK PHOS 64 U/L (45-117); ANION GAP 13 (8-16); BILIRUBIN,TOTAL 0.4 mg/dL (0.2-1.0); CALCIUM 8.7 mg/dL (8.5-10.1); CO2 23 mmol/L (21-32); CREATININE 1.1 mg/dL (0.7-1.3); GLUCOSE,RANDOM 165 mg/dL (74-106); SGOT/AST 38 U/L (15-37); SGPT/ALT 40 U/L (12-78); TOT PROT 7.3 g/dl (6.4-8.2)
--- NOTE | 2017-01-31 11:35 | PN ---
S CIWA - CIWA Score Nausea/Vomitin-No Nausea/No Vomiting Muscle Tremors: 4-Moderate,w/Arms Extend Anxiety: 4-Mod. Anxious/Guarded Agitation: 4-Moderately Restless Paroxysmal Sweats: 3 Orientation: 0-Oriented Tacttile Disturbances: 0-None Auditory Disturbances: 0-None Visual Disturbances: 0-None Headache: 0-None Present CIWA-Ar Total Score: 15 BHS Progress Note (SOAP) Subjective: Anxiety,tremors,sweating,interrupted sleep,restless Objective: 01/31/17 11:34 Vital Signs - 8 hr 01/31/17 01/31/17 01/31/17 06:17 07:08 09:21 Temperature 96.6 F L 96.1 F L Pulse Rate 77 63 97 H Respiratory 18 18 Rate Blood Pressure 146/105 125/81 128/90 Laboratory Tests 01/30/17 01/31/17 01/31/17 19:45 06:20 06:20 WBC 9.2 D RBC 4.56 Hgb 14.6 Hct 43.5 MCV 95.3 MCHC 33.7 RDW 13.3 Plt Count 349 MPV 8.6 Sodium 133 L Potassium 3.6 Chloride 97 L Carbon Dioxide 23 Anion Gap 13 BUN 22 H D Creatinine 1.1 Creat Clearance w eGFR > 60 Random Glucose 165 H D Calcium 8.7 Total Bilirubin 0.4 AST 38 H D ALT 40 D Alkaline Phosphatase 64 D Total Protein 7.3 D Albumin 3.8 D Urine Color Yellow Urine Appearance Clear Urine pH 6.0 Ur Specific [place] 1.018 Urine Protein Negative Urine Glucose (UA) Negative Urine Ketones Negative Urine Blood Negative Urine Nitrite Negative Urine Bilirubin Negative Urine Urobilinogen Negative Ur Leukocyte Esterase Negative labs noted Assessment: 01/31/17 11:35 Withdrawal sx. Plan: Continue detox
[2017-01-31] MEDS: cloNIDine HCL 0.1 MG TABLET PO PRN (17:15)
--- NOTE | 2017-01-31 18:32 | EKG ---
Test Reason : Blood Pressure : / mmHG Vent. Rate : 093 BPM Atrial Rate : 093 BPM P-R Int : 144 ms QRS Dur : 074 ms QT Int : 342 ms P-R-T Axes : 051 012 004 degrees QTc Int : 425 ms POOR DATA QUALITY, INTERPRETATION MAY BE ADVERSELY AFFECTED NORMAL SINUS RHYTHM POSSIBLE LEFT ATRIAL ENLARGEMENT BORDERLINE ECG WHEN COMPARED WITH ECG OF 27-DEC-2016 13:04, NO SIGNIFICANT CHANGE WAS FOUND Confirmed by INESSA BUSH MD ([id number]) on 01/31/2017 6:31:53 PM Referred By: Watson Luu Confirmed By:INESSA BUSH MD
[2017-01-31] MEDS: THIAMINE HCL 100 MG TABLET (FP) PO SCH (22:03)
[2017-01-31] MEDS: ZOLPIDEM TARTRATE 10 MG TABLET (PARK CARE ONLY) PO PRN (22:04)
[2017-02-01] MEDS: chlordiazePOXIDE HCL 25 MG CAPSULE PO SCH ×2 (05:24→10:05)
[2017-02-01] MEDS: chlordiazePOXIDE HCL 25 MG CAPSULE PO PRN ×3 (08:06→19:23)
--- NOTE | 2017-02-01 08:46 | PN ---
[facility] CIWA - CIWA Score Nausea/Vomitin-No Nausea/No Vomiting Muscle Tremors: 4-Moderate,w/Arms Extend Anxiety: 4-Mod. Anxious/Guarded Agitation: 3 Paroxysmal Sweats: 3 Orientation: 0-Oriented Tacttile Disturbances: 0-None Auditory Disturbances: 0-None Visual Disturbances: 0-None Headache: 0-None Present CIWA-Ar Total Score: 14 S Progress Note (SOAP) Subjective: Anxiety,Tremors,sweating,interrupted sleep Objective: 02/01/17 08:45 Vital Signs - 8 hr 02/01/17 02/01/17 03:30 06:21 Temperature 96.8 F L Pulse Rate 71 Respiratory 18 16 Rate Blood Pressure 116/76 Laboratory Last Values WBC 9.2 K/mm3 (4.0-10.0) D 01/31/17 06:20 RBC 4.56 M/mm3 (4.00-5.60) 01/31/17 06:20 Hgb 14.6 GM/dL (11.7-16.9) 01/31/17 06:20 Hct 43.5 % (35.4-49) 01/31/17 06:20 MCV 95.3 fl (80-96) 01/31/17 06:20 MCHC 33.7 g/dl (32.0-35.9) 01/31/17 06:20 RDW 13.3 % (11.9-15.9) 01/31/17 06:20 Plt Count 349 K/MM3 (134-434) 01/31/17 06:20 MPV 8.6 fl (7.5-11.1) 01/31/17 06:20 Sodium 133 mmol/L (136-145) L 01/31/17 06:20 Potassium 3.6 mmol/L (3.5-5.1) 01/31/17 06:20 Chloride 97 mmol/L (98-107) L 01/31/17 06:20 Carbon Dioxide 23 mmol/L (21-32) 01/31/17 06:20 Anion Gap 13 (8-16) 01/31/17 06:20 BUN 22 mg/dL (7-18) H D 01/31/17 06:20 Creatinine 1.1 mg/dL (0.7-1.3) 01/31/17 06:20 Creat Clearance w eGFR > 60 (>60) 01/31/17 06:20 Random Glucose 165 mg/dL (74-106) H D 01/31/17 06:20 Calcium 8.7 mg/dL (8.5-10.1) 01/31/17 06:20 Total Bilirubin 0.4 mg/dL (0.2-1.0) 01/31/17 06:20 AST 38 U/L (15-37) H D 01/31/17 06:20 ALT 40 U/L (12-78) D 01/31/17 06:20 Alkaline Phosphatase 64 U/L (45-117) D 01/31/17 06:20 Total Protein 7.3 g/dl (6.4-8.2) D 01/31/17 06:20 Albumin 3.8 g/dl (3.4-5.0) D 01/31/17 06:20 Urine Color Yellow 01/30/17 19:45 Urine Appearance Clear 01/30/17 19:45 Urine pH 6.0 (5.0-8.0) 01/30/17 19:45 Ur Specific [place] 1.018 (1.001-1.035) 01/30/17 19:45 Urine Protein Negative (NEGATIVE) 01/30/17 19:45 Urine Glucose (UA) Negative (NEGATIVE) 01/30/17 19:45 Urine Ketones Negative (NEGATIVE) 01/30/17 19:45 Urine Blood Negative (NEGATIVE) 01/30/17 19:45 Urine Nitrite Negative (NEGATIVE) 01/30/17 19:45 Urine Bilirubin Negative (NEGATIVE) 01/30/17 19:45 Urine Urobilinogen Negative E.U./dl (0.2-1.0) 01/30/17 19:45 Ur Leukocyte Esterase Negative (NEGATIVE) 01/30/17 19:45 RPR Titer Nonreactive (NONREACTIVE) 01/31/17 06:20 labs noted Assessment: 02/01/17 08:46 Withdrawal sx. Plan: Continue detox
[2017-02-01] MEDS: CITALOPRAM HYDROBROMIDE 20 MG TABLET (FP) PO SCH (10:05)
[2017-02-01] MEDS: PRENATAL VITAMINS W/ FOLIC ACID TABLET (FP) PO SCH (10:05)
[2017-02-01] MEDS: cloNIDine HCL 0.1 MG TABLET PO PRN (15:00)
[2017-02-01] MEDS: chlordiazePOXIDE 5 MG CAPSULE PO SCH ×2 (16:55→22:07)
[2017-02-01] MEDS: THIAMINE HCL 100 MG TABLET (FP) PO SCH (22:07)
[2017-02-01] MEDS: ZOLPIDEM TARTRATE 10 MG TABLET (PARK CARE ONLY) PO PRN (22:07)
[2017-02-02] MEDS: chlordiazePOXIDE 5 MG CAPSULE PO SCH ×2 (05:26→11:17)
[2017-02-02] MEDS: CITALOPRAM HYDROBROMIDE 20 MG TABLET (FP) PO SCH (09:11)
[2017-02-02] MEDS: PRENATAL VITAMINS W/ FOLIC ACID TABLET (FP) PO SCH (09:11)
[2017-02-02] MEDS: chlordiazePOXIDE HCL 25 MG CAPSULE PO PRN (09:11)
--- NOTE | 2017-02-02 12:59 | PN ---
BHS Progress Note (SOAP) Subjective: Sweating,interrupted sleep,restless Objective: 02/02/17 12:58 Vital Signs - 8 hr 02/02/17 02/02/17 06:09 10:18 Temperature 96.9 F L 98.1 F Pulse Rate 67 76 Respiratory 18 18 Rate Blood Pressure 125/85 128/88 Laboratory Last Values WBC 9.2 K/mm3 (4.0-10.0) D 01/31/17 06:20 RBC 4.56 M/mm3 (4.00-5.60) 01/31/17 06:20 Hgb 14.6 GM/dL (11.7-16.9) 01/31/17 06:20 Hct 43.5 % (35.4-49) 01/31/17 06:20 MCV 95.3 fl (80-96) 01/31/17 06:20 MCHC 33.7 g/dl (32.0-35.9) 01/31/17 06:20 RDW 13.3 % (11.9-15.9) 01/31/17 06:20 Plt Count 349 K/MM3 (134-434) 01/31/17 06:20 MPV 8.6 fl (7.5-11.1) 01/31/17 06:20 Sodium 133 mmol/L (136-145) L 01/31/17 06:20 Potassium 3.6 mmol/L (3.5-5.1) 01/31/17 06:20 Chloride 97 mmol/L (98-107) L 01/31/17 06:20 Carbon Dioxide 23 mmol/L (21-32) 01/31/17 06:20 Anion Gap 13 (8-16) 01/31/17 06:20 BUN 22 mg/dL (7-18) H D 01/31/17 06:20 Creatinine 1.1 mg/dL (0.7-1.3) 01/31/17 06:20 Creat Clearance w eGFR > 60 (>60) 01/31/17 06:20 POC Glucometer 100 UNITS (()) 02/02/17 05:29 Random Glucose 165 mg/dL (74-106) H D 01/31/17 06:20 Calcium 8.7 mg/dL (8.5-10.1) 01/31/17 06:20 Total Bilirubin 0.4 mg/dL (0.2-1.0) 01/31/17 06:20 AST 38 U/L (15-37) H D 01/31/17 06:20 ALT 40 U/L (12-78) D 01/31/17 06:20 Alkaline Phosphatase 64 U/L (45-117) D 01/31/17 06:20 Total Protein 7.3 g/dl (6.4-8.2) D 01/31/17 06:20 Albumin 3.8 g/dl (3.4-5.0) D 01/31/17 06:20 Urine Color Yellow 01/30/17 19:45 Urine Appearance Clear 01/30/17 19:45 Urine pH 6.0 (5.0-8.0) 01/30/17 19:45 Ur Specific [place] 1.018 (1.001-1.035) 01/30/17 19:45 Urine Protein Negative (NEGATIVE) 01/30/17 19:45 Urine Glucose (UA) Negative (NEGATIVE) 01/30/17 19:45 Urine Ketones Negative (NEGATIVE) 01/30/17 19:45 Urine Blood Negative (NEGATIVE) 01/30/17 19:45 Urine Nitrite Negative (NEGATIVE) 01/30/17 19:45 Urine Bilirubin Negative (NEGATIVE) 01/30/17 19:45 Urine Urobilinogen Negative E.U./dl (0.2-1.0) 01/30/17 19:45 Ur Leukocyte Esterase Negative (NEGATIVE) 01/30/17 19:45 RPR Titer Nonreactive (NONREACTIVE) 01/31/17 06:20 labs noted Assessment: 02/02/17 12:59 Withdrawal sx. Plan: Continue detox
[2017-02-02] MEDS: chlordiazePOXIDE HCL 10 MG CAPSULE PO SCH ×2 (16:53→22:03)
[2017-02-02] MEDS: ZOLPIDEM TARTRATE 10 MG TABLET (PARK CARE ONLY) PO PRN (21:54)
[2017-02-02] MEDS: cloNIDine HCL 0.1 MG TABLET PO PRN (22:03)
[2017-02-02] MEDS: THIAMINE HCL 100 MG TABLET (FP) PO SCH (22:03)
[2017-02-03] MEDS: chlordiazePOXIDE HCL 10 MG CAPSULE PO SCH (05:15)
[2017-02-03 05:56] VITALS: BP 112/72; PULSE 68; TEMP 97.1
--- NOTE | 2017-02-03 09:45 | DS ---
[facility] Detox Discharge Summary Admission Date: 01/30/17 Discharge Date: 02/03/17 - History Present History: Alcohol Dependence, Cocaine Dependence Pertinent Past History: Hemorrhoids - Physical Exam Results Vital Signs: Vital Signs Temperature 97.1 F L 02/03/17 05:55 Pulse Rate 68 02/03/17 05:55 Respiratory Rate 18 02/03/17 05:55 Blood Pressure 112/72 02/03/17 05:55 O2 Sat by Pulse Oximetry (%) Pertinent Admission Physical Exam Findings: Withdrawal sx. Laboratory Last Values WBC 9.2 K/mm3 (4.0-10.0) D 01/31/17 06:20 RBC 4.56 M/mm3 (4.00-5.60) 01/31/17 06:20 Hgb 14.6 GM/dL (11.7-16.9) 01/31/17 06:20 Hct 43.5 % (35.4-49) 01/31/17 06:20 MCV 95.3 fl (80-96) 01/31/17 06:20 MCHC 33.7 g/dl (32.0-35.9) 01/31/17 06:20 RDW 13.3 % (11.9-15.9) 01/31/17 06:20 Plt Count 349 K/MM3 (134-434) 01/31/17 06:20 MPV 8.6 fl (7.5-11.1) 01/31/17 06:20 Sodium 133 mmol/L (136-145) L 01/31/17 06:20 Potassium 3.6 mmol/L (3.5-5.1) 01/31/17 06:20 Chloride 97 mmol/L (98-107) L 01/31/17 06:20 Carbon Dioxide 23 mmol/L (21-32) 01/31/17 06:20 Anion Gap 13 (8-16) 01/31/17 06:20 BUN 22 mg/dL (7-18) H D 01/31/17 06:20 Creatinine 1.1 mg/dL (0.7-1.3) 01/31/17 06:20 Creat Clearance w eGFR > 60 (>60) 01/31/17 06:20 POC Glucometer 110 UNITS (()) 02/03/17 05:15 Random Glucose 165 mg/dL (74-106) H D 01/31/17 06:20 Calcium 8.7 mg/dL (8.5-10.1) 01/31/17 06:20 Total Bilirubin 0.4 mg/dL (0.2-1.0) 01/31/17 06:20 AST 38 U/L (15-37) H D 01/31/17 06:20 ALT 40 U/L (12-78) D 01/31/17 06:20 Alkaline Phosphatase 64 U/L (45-117) D 01/31/17 06:20 Total Protein 7.3 g/dl (6.4-8.2) D 01/31/17 06:20 Albumin 3.8 g/dl (3.4-5.0) D 01/31/17 06:20 Urine Color Yellow 01/30/17 19:45 Urine Appearance Clear 01/30/17 19:45 Urine pH 6.0 (5.0-8.0) 01/30/17 19:45 Ur Specific [place] 1.018 (1.001-1.035) 01/30/17 19:45 Urine Protein Negative (NEGATIVE) 01/30/17 19:45 Urine Glucose (UA) Negative (NEGATIVE) 01/30/17 19:45 Urine Ketones Negative (NEGATIVE) 01/30/17 19:45 Urine Blood Negative (NEGATIVE) 01/30/17 19:45 Urine Nitrite Negative (NEGATIVE) 01/30/17 19:45 Urine Bilirubin Negative (NEGATIVE) 01/30/17 19:45 Urine Urobilinogen Negative E.U./dl (0.2-1.0) 01/30/17 19:45 Ur Leukocyte Esterase Negative (NEGATIVE) 01/30/17 19:45 RPR Titer Nonreactive (NONREACTIVE) 01/31/17 06:20 labs noted - Treatment Hospital Course: Detox Protocol Followed, Detoxed Safely, Responded well, Discharged Condition Good, Rehab Referral Accepted Patient has Accepted a Rehab Referral to: 12-step meetings - Medication Discharge Medications: Ambulatory Orders Citalopram Hydrobromide [Celexa -] 20 mg PO DAILY #30 tablet 12/29/16 - Diagnosis (1) Alcohol dependence with uncomplicated withdrawal Current Visit: Yes Status: Acute (2) Drug-induced mood disorder Current Visit: Yes Status: Acute (3) Nicotine dependence Current Visit: Yes Status: Acute Qualifiers: Nicotine product type: cigarettes (4) Substance induced mood disorder Current Visit: Yes Status: Acute (5) Depressive disorder Current Visit: Yes Status: Chronic (6) Insomnia Current Visit: Yes Status: Chronic - AMA Did Patient Leave Against Medical Advice: No
== END 2017-02-03 09:03 | disposition home or self-care (01) | DRG 774 ==
LOC: YASAS 08:40 → Y3N 11:40
PROVIDERS: ADMIT Internal Medicine; ATTEND Internal Medicine
PROC: HZ2ZZZZ Detoxification Services for Substance Abuse Treatment (ICD-10-PCS; principal; 2017-02-03)
DX: F10.230 Alcohol dependence with withdrawal, uncomplicated (principal); F14.20 Cocaine dependence, uncomplicated; F17.210 Nicotine dependence, cigarettes, uncomplicated; F19.24 Other psychoactive substance dependence with psychoactive substance-induced mood disorder; F33.9 Major depressive disorder, recurrent, unspecified; G47.00 Insomnia, unspecified; D64.9 Anemia, unspecified
CPT/HCPCS: 36415; 80053; 81003; 85027; 86593; 93005; 93010

== ENCOUNTER 2017-03-04 08:33 | Inpatient (IN) | payer OTHER ==
[2017-03-04 11:13] VITALS: BMI 27.3
--- NOTE | 2017-03-04 13:02 | HP ---
CIWA Score - CIWA Score Nausea/Vomitin Muscle Tremors: 3 Anxiety: 3 Agitation: 2 Paroxysmal Sweats: 3 Orientation: 0-Oriented Tacttile Disturbances: 2-Mild Itch/Numbness/Burn Auditory Disturbances: 0-None Visual Disturbances: 0-None Headache: 2-Mild CIWA-Ar Total Score: 18 Admission ROS BHS - HPI Chief Complaint: i want to stop drinking and i need help. Allergies/Adverse Reactions: Allergies Allergy/AdvReac Type Severity Reaction Status Date / Time No Known Allergies Allergy Verified 03/04/17 10:58 History of Present Illness: 51 y/o m pt with a h/o chronic alcoholism and crack abuse seeking detox . Exam Limitations: No Limitations - Ebola screening Have you traveled outside of the country in the last 21 days: No Have you had contact with anyone from an Ebola affected area: No Have you been sick,other than usual withdrawal symptoms: Yes - Review of Systems Constitutional: Malaise, Night Sweats, Changes in sleep EENT: reports: No Symptoms Reported Respiratory: reports: No Symptoms reported Cardiac: reports: No Symptoms Reported GI: reports: Nausea, Indigestion, Abdominal cramping : reports: No Symptoms Reported Musculoskeletal: reports: Back Pain Integumentary: reports: No Symptoms Reported Neuro: reports: Headache, Seizure, Tremors Endocrine: reports: No Symptoms Reported Hematology: reports: No Symptoms Reported Psychiatric: reports: Anxious, Depressed Other Systems: Reviewed and Negative Patient History - Patient Medical History Hx Anemia: No Hx Asthma: No Hx Chronic Obstructive Pulmonary Disease (COPD): No Hx Cancer: No Hx Cardiac Disorders: No Hx Congestive Heart Failure: No Hx Hypertension: No Hx Hypercholesterolemia: No Hx Pacemaker: No HX Cerebrovascular Accident: No Hx Seizures: Yes (alcohol related-last episode was in 2014) Hx Dementia: No Hx Diabetes: No Hx Gastrointestinal Disorders: No Hx Liver Disease: No Hx Genitourinary Disorders: No Hx Sexually Transmitted Disorders: No Hx Renal Disease (ESRD): No Hx Thyroid Disease: No Hx Human Immunodeficiency Virus (HIV): No Hx Hepatitis C: No Hx Depression: Yes Hx Suicide Attempt: No Hx Bipolar Disorder: No Hx Schizophrenia: No - Patient Surgical History Past Surgical History: No Hx Neurologic Surgery: No Hx Cataract Extraction: No Hx Cardiac Surgery: No Hx Lung Surgery: No Hx Breast Surgery: No Hx Breast Biopsy: No Hx Abdominal Surgery: No Hx Appendectomy: No Hx Cholecystectomy: No Hx Genitourinary Surgery: No Hx Section: No Hx Orthopedic Surgery: No Hx Hysterectomy: No Anesthesia Reaction: No - PPD History Previous Implant?: Yes Documented Results: Negative w/proof Implanted On Prior [facility] Admission?: Yes Date: 06/19/16 Results: 0 mm - Reproductive History Patient is a Female of Child Bearing Age (11 -55 yrs old): No - Smoking Cessation Smoking history: Current every day smoker Have you smoked in the past 12 months: Yes Aproximately how many cigarettes per day: 2 Cigars Per Day: 0 Hx Chewing Tobacco Use: No Initiated information on smoking cessation: Yes 'Breaking Loose' booklet given: 03/04/17 - Substance & Tx. History Hx Alcohol Use: Yes Hx Substance Use: Yes Substance Use Type: Alcohol, Cocaine Hx Substance Use Treatment: Yes - Substances Abused Crack Route: Smoking Frequency: 1-3 times last 30 days Amount used: $50 Age of first use: 41 Date of Last Use: 03/02/17 Alcohol-rum/beer Route: Oral Frequency: Daily Amount used: 3 pts./2 (40 oz.) Age of first use: 30 Date of Last Use: 03/04/17 Family Disease History - Family Disease History Family Disease History: Heart Disease: Mother ( 2nd cva), Other: Father (alive, no med problems), Mother Admission Physical Exam BHS - Vital Signs Vital Signs: Vital Signs - 24 hr 03/04/17 11:01 Temperature 97 F L Pulse Rate 96 H Respiratory 20 Rate Blood Pressure 187/120 51 y/o m pt aox3 ,wn/wd , anxious but coperating with exam - Physical General Appearance: Yes: Disheveled, Tremorous, Irritable, Anxious HEENTM: Yes: EOMI, Hearing grossly Normal, Normocephalic, Normal Voice, [place] Respiratory: Yes: Chest Non-Tender, Lungs Clear, Normal Breath Sounds, No Respiratory Distress Neck: Yes: No masses,lesions,Nodules, Supple, Trachea in good position Breast: Yes: Within Normal Limits Cardiology: Yes: Regular Rhythm, Regular Rate, S1, S2 Abdominal: Yes: Non Tender, Flat, Soft, Increased Bowel Sounds Genitourinary: Yes: Within Normal Limits Back: Yes: Decreased Range of Motion Musculoskeletal: Yes: Back pain Extremities: Yes: Tremors Neurological: Yes: factory hand II-XII NML intact, Fully Oriented, Alert, Motor Strength 5/5, Normal Response, Depressed Affect Integumentary: Yes: Moist Lymphatic: Yes: Within Normal Limits - Diagnostic (1) Alcohol dependence with uncomplicated withdrawal Current Visit: Yes Status: Chronic (2) Cocaine dependence Current Visit: Yes Status: Chronic Qualifiers: Substance use status: uncomplicated Qualified Code(s): F14.20 - Cocaine dependence, uncomplicated (3) Nicotine dependence Current Visit: Yes Status: Chronic Qualifiers: Nicotine product type: cigarettes Substance use status: uncomplicated Qualified Code(s): F17.210 - Nicotine dependence, cigarettes, uncomplicated (4) Depression Current Visit: Yes Status: Chronic Qualifiers: Depression Type: unspecified Qualified Code(s): F32.9 - Major depressive disorder, single episode, unspecified (5) Insomnia Current Visit: Yes Status: Chronic Qualifiers: Insomnia type: unspecified Qualified Code(s): G47.00 - Insomnia, unspecified (6) Chronic bilateral low back pain Current Visit: Yes Status: Acute (7) Indigestion Current Visit: Yes Status: Acute Cleared for Admission [facility] - Detox or Rehab [facility] Level of Care: Medically Managed Detox Regimen/Protocol: Librium [facility] Breath Alcohol Content Breath Alcohol Content: 0.024 Urine Drug Screen - Results Drug Screen Negative: No Urine Drug Screen Results: CRISTIAN-Cocaine, BZO-Benzodiazepines
[2017-03-04] MEDS ORDERED: hydrOXYzine PAMOATE 25 MG CAPSULE (FP) PO PRN (13:13)
[2017-03-04] MEDS ORDERED: IBUPROFEN 400 MG TABLET (FP) PO PRN (13:13)
[2017-03-04] MEDS ORDERED: MAGNESIUM CITRATE 300 ML BOTTLE PO PRN (13:13)
[2017-03-04] MEDS ORDERED: ACETAMINOPHEN 325 MG TABLET (FP) PO PRN (13:13)
[2017-03-04] MEDS ORDERED: MENTHOL/PHENOL 1 EACH UD MM PRN (13:13)
[2017-03-04] MEDS ORDERED: guaiFENesin/D-METHORPHAN HB 10 ML UNIT-DOSE CUPS PO PRN (13:13)
[2017-03-04] MEDS ORDERED: MAG HYDROX/AL HYDROX/SIMETH 30 ML UNIT-DOSE CUP PO PRN (13:13)
[2017-03-04] MEDS ORDERED: LOPERAMIDE HCL 2 MG CAPSULE PO PRN (13:13)
[2017-03-04] MEDS ORDERED: P-EPHED 60MG/TRIPROLIDI 2.5MG TABLET PO PRN (13:13)
[2017-03-04] MEDS: chlordiazePOXIDE HCL 25 MG CAPSULE PO PRN (14:27)
[2017-03-04] MEDS: chlordiazePOXIDE HCL 25 MG CAPSULE PO SCH ×2 (16:54→22:42)
[2017-03-04] MEDS: MAGNESIUM HYDROX 2400MG/30ML ORAL SUSPENSION 30 ML CUP PO PRN (16:57)
--- NOTE | 2017-03-04 18:00 | CONSULT ---
[facility] Psychiatric Consult - Data Date of interview: 03/04/17 Admission source: [facility] Identifying data: Another admission to [facility] for this 51 y/o male seeking detox treatment on for alcohol and cocaine dependence.Patient is single without children,domiciled,unemployed and supported on food stamps. Substance Abuse History: - Smoking Cessation. Smoking history: Current every day smoker. Have you smoked in the past 12 months: Yes. Aproximately how many cigarettes per day: 2. Cigars Per Day: 0. Hx Chewing Tobacco Use: No. Initiated information on smoking cessation: Yes. 'Breaking Loose' booklet given : 03/04/17. - Substance & Tx. History. Hx Alcohol Use: Yes. Hx Substance Use : Yes. Substance Use Type: Alcohol, Cocaine. Hx Substance Use Treatment: Yes. - Substances Abused. Crack. Route: Smoking. Frequency: 1-3 times last 30 days. Amount used: $50. Age of first use: 41. Date of Last Use: 03/02/17. Alcohol-rum/beer. Route: Oral. Frequency: Daily. Amount used: 3 pts./2 ( 40 oz.). Age of first use: 30. Date of Last Use: 03/04/17 Medical History: History of hemorrhoids and withdrawal seizures. Psychiatric History: No history of psychiatric hospitalizations.Patient still gets his OPD care at [facility] mental health clinic.Diagnosed with MDD and Anxiety Disorder.Mr Serna continues to be prescribed celexa 20 mg/day ( states that he takes 1/2 tablet) + zolpidem 10 mg/hs.Patient denies history of suicide attempts. Physical/Sexual Abuse/Trauma History: Patient denies. Additional Comment: Urine Drug Screen Results: CRISTIAN-Cocaine, BZO- Benzodiazepines.Noted. Mental Status Exam - Mental Status Exam Alert and Oriented to: Time, Place, Person Cognitive Function: Good Patient Appearance: Well Groomed Mood: Anxious, Apprehensive Affect: Mood Congruent Patient Behavior: Fatigued, Appropriate, Cooperative Speech Pattern: Clear, Appropriate Voice Loudness: Normal Thought Process: Goal Oriented Thought Disorder: Not Present Hallucinations: Denies Suicidal Ideation: Denies Homicidal Ideation: Denies Insight/Judgement: Poor Sleep: Poorly, Difficulty falling asleep Appetite: Good Muscle strength/Tone: Normal Gait/Station: Normal Psychiatric Findings - Problem List ([place] 1, 2,3) (1) Alcohol dependence with uncomplicated withdrawal Current Visit: Yes Status: Acute (2) Cocaine dependence Current Visit: Yes Status: Acute Qualifiers: Substance use status: uncomplicated Qualified Code(s): F14.20 - Cocaine dependence, uncomplicated (3) Nicotine dependence Current Visit: Yes Status: Acute Qualifiers: Nicotine product type: cigarettes Substance use status: uncomplicated Qualified Code(s): F17.210 - Nicotine dependence, cigarettes, uncomplicated (4) Substance induced mood disorder Current Visit: Yes Status: Acute (5) Depressive disorder Current Visit: Yes Status: Chronic (6) Chronic bilateral low back pain Current Visit: Yes Status: Chronic (7) Hemorrhoids Current Visit: Yes Status: Chronic Qualifiers: Hemorrhoid type: unspecified Qualified Code(s): K64.9 - Unspecified hemorrhoids (8) Insomnia Current Visit: Yes Status: Acute Qualifiers: Insomnia type: unspecified Qualified Code(s): G47.00 - Insomnia, unspecified - Initial Treatment Plan Initial Treatment Plan: Psychoeducation.Detoxification.Medications : celexa 10 mg po daily + ambien 10 mg po hs.Side effects/benefits of both drugs discussed with patient.He agrees with careplan.Observation.
[2017-03-04 18:10] LABS: URINE APPEARANCE CLEAR; URINE BILIRUBIN NEGATIVE (NEGATIVE); URINE BLOOD NEGATIVE (NEGATIVE); URINE COLOR YELLOW; URINE GLUCOSE (UA) NEGATIVE (NEGATIVE); URINE KETONE NEGATIVE (NEGATIVE); URINE LEUK ESTERASE NEGATIVE (NEGATIVE); URINE NITRITE NEGATIVE (NEGATIVE); URINE PROTEIN NEGATIVE (NEGATIVE); URINE UROBILINOGEN NEGATIVE E.U./dl (0.2-1.0)
[2017-03-04] MEDS: RANITIDINE HCL 150 MG TABLET (FP) PO SCH (22:42)
[2017-03-04] MEDS: THIAMINE HCL 100 MG TABLET (FP) PO SCH (22:42)
[2017-03-04] MEDS: ZOLPIDEM TARTRATE 10 MG TABLET (PARK CARE ONLY) PO SCH (22:42)
[2017-03-05] MEDS: chlordiazePOXIDE HCL 25 MG CAPSULE PO PRN ×2 (02:45→13:59)
[2017-03-05] MEDS: diphenhydrAMINE HCL 50 MG CAPSULE PO PRN (02:46)
[2017-03-05] MEDS: chlordiazePOXIDE HCL 25 MG CAPSULE PO SCH ×4 (05:25→22:54)
[2017-03-05] MEDS: RANITIDINE HCL 150 MG TABLET (FP) PO SCH ×2 (10:09→22:54)
[2017-03-05] MEDS: CITALOPRAM HYDROBROMIDE 10 MG TABLET (FP) PO SCH (10:09)
[2017-03-05] MEDS: PRENATAL VITAMINS W/ FOLIC ACID TABLET (FP) PO SCH (10:09)
[2017-03-05 10:14] LABS: MCH 33.5 pg (25.7-33.7); MCHC 34.3 g/dl (32.0-35.9); MEAN CELL VOLUME 97.7 fl (80-96); MEAN PLT VOLUME 9.4 fl (7.5-11.1); PLATELET COUNT 266 K/MM3 (134-434); RDW 14.5 % (11.9-15.9); WHITE BLOOD COUNT 5.8 K/mm3 (4.0-10.0)
--- NOTE | 2017-03-05 10:17 | PN ---
S CIWA - CIWA Score Nausea/Vomitin Muscle Tremors: 2 Anxiety: 4-Mod. Anxious/Guarded Agitation: 2 Paroxysmal Sweats: 3 Orientation: 0-Oriented Tacttile Disturbances: 1-Very Mild Itch/Numbness Auditory Disturbances: 0-None Visual Disturbances: 0-None Headache: 0-None Present CIWA-Ar Total Score: 14 BHS Progress Note (SOAP) Subjective: interrupted sleep, sweats , Objective: 03/05/17 10:14 Vital Signs Temperature 98.1 F 03/05/17 09:52 Pulse Rate 117 H 03/05/17 09:52 Respiratory Rate 16 03/05/17 09:52 Blood Pressure 140/86 03/05/17 09:52 O2 Sat by Pulse Oximetry (%) Laboratory Tests 03/04/17 14:00 Urine Color Yellow Urine Appearance Clear Urine pH 5.0 Ur Specific [place] 1.024 Urine Protein Negative Urine Glucose (UA) Negative Urine Ketones Negative Urine Blood Negative Urine Nitrite Negative Urine Bilirubin Negative Urine Urobilinogen Negative Ur Leukocyte Esterase Negative pending labs pt aox3 in nad ambulating 04/09/17 08:43 Assessment: 03/05/17 10:16 withdrawal sx's anxiety 04/09/17 08:43 Plan: cont. detox increase fluids vistaril prn f/up pending labs
[2017-03-05 10:52] LABS: ALBUMIN 2.9 g/dl (3.4-5.0); ALK PHOS 85 U/L (45-117); ANION GAP 15 (8-16); BILIRUBIN,TOTAL 0.8 mg/dL (0.2-1.0); CO2 22 mmol/L (21-32); COCKROFT - GAULT 100.92
[2017-03-05 10:53] LABS: GLUCOSE,RANDOM 184 mg/dL (74-106)
--- NOTE | 2017-03-05 13:34 | EKG ---
Test Reason : Blood Pressure : / mmHG Vent. Rate : 085 BPM Atrial Rate : 085 BPM P-R Int : 144 ms QRS Dur : 078 ms QT Int : 358 ms P-R-T Axes : 065 019 015 degrees QTc Int : 426 ms POOR DATA QUALITY, INTERPRETATION MAY BE ADVERSELY AFFECTED NORMAL SINUS RHYTHM NORMAL ECG WHEN COMPARED WITH ECG OF 30-JAN-2017 12:54, NO SIGNIFICANT CHANGE WAS FOUND Confirmed by PRASHANT GALINDO, MEÑO ([id number]) on 03/05/2017 1:34:33 PM Referred By: Confirmed By:MEÑO CERDA MD
[2017-03-05] MEDS: THIAMINE HCL 100 MG TABLET (FP) PO SCH (22:54)
[2017-03-05] MEDS: ZOLPIDEM TARTRATE 10 MG TABLET (PARK CARE ONLY) PO SCH (22:54)
[2017-03-06] MEDS: chlordiazePOXIDE HCL 25 MG CAPSULE PO PRN (02:45)
[2017-03-06] MEDS: chlordiazePOXIDE HCL 25 MG CAPSULE PO SCH ×2 (05:28→10:19)
[2017-03-06] MEDS ORDERED: cloNIDine HCL 0.1 MG TABLET PO ONE (06:25)
--- NOTE | 2017-03-06 09:54 | PN ---
S CIWA - CIWA Score Nausea/Vomitin-No Nausea/No Vomiting Muscle Tremors: 4-Moderate,w/Arms Extend Anxiety: 4-Mod. Anxious/Guarded Agitation: 4-Moderately Restless Paroxysmal Sweats: 3 Orientation: 0-Oriented Tacttile Disturbances: 0-None Auditory Disturbances: 0-None Visual Disturbances: 0-None Headache: 0-None Present CIWA-Ar Total Score: 15 BHS Progress Note (SOAP) Subjective: anxious sweats irritable agitation interrupted sleep Objective: 03/06/17 09:52 Vital Signs Temperature 97.7 F 03/06/17 06:00 Pulse Rate 106 H 03/06/17 07:30 Respiratory Rate 18 03/06/17 07:30 Blood Pressure 143/98 03/06/17 07:30 O2 Sat by Pulse Oximetry (%) Laboratory Tests 03/04/17 03/05/17 03/05/17 14:00 06:00 06:00 WBC 5.8 D RBC 4.50 Hgb 15.1 Hct 43.9 MCV 97.7 H MCHC 34.3 RDW 14.5 Plt Count 266 D MPV 9.4 Sodium 134 L Potassium 3.8 Chloride 97 L Carbon Dioxide 22 Anion Gap 15 BUN 19 H Creatinine 1.0 Creat Clearance w eGFR > 60 Random Glucose 184 H Calcium 8.0 L Total Bilirubin 0.8 D AST ALT Alkaline Phosphatase 85 D Total Protein Albumin 2.9 L D Urine Color Yellow Urine Appearance Clear Urine pH 5.0 Ur Specific [place] 1.024 Urine Protein Negative Urine Glucose (UA) Negative Urine Ketones Negative Urine Blood Negative Urine Nitrite Negative Urine Bilirubin Negative Urine Urobilinogen Negative Ur Leukocyte Esterase Negative RPR Titer 03/05/17 06:00 WBC RBC Hgb Hct MCV MCHC RDW Plt Count MPV Sodium Potassium Chloride Carbon Dioxide Anion Gap BUN Creatinine Creat Clearance w eGFR Random Glucose Calcium Total Bilirubin AST ALT Alkaline Phosphatase Total Protein Albumin Urine Color Urine Appearance Urine pH Ur Specific [place] Urine Protein Urine Glucose (UA) Urine Ketones Urine Blood Urine Nitrite Urine Bilirubin Urine Urobilinogen Ur Leukocyte Esterase RPR Titer Nonreactive random glucose is 184. ast/alt repeated A1C and fasting glucose ordered awake/alert ambulating no acute distress Assessment: 03/06/17 09:53 withdrawal sx Plan: continue detox increase fluids f/u on repeated labs
[2017-03-06] MEDS ORDERED: NIFEdipine E.R. 30 MG TABLET (FP) PO SCH (10:00)
[2017-03-06] MEDS: RANITIDINE HCL 150 MG TABLET (FP) PO SCH ×2 (10:18→22:24)
[2017-03-06] MEDS: PRENATAL VITAMINS W/ FOLIC ACID TABLET (FP) PO SCH (10:18)
[2017-03-06] MEDS: CITALOPRAM HYDROBROMIDE 10 MG TABLET (FP) PO SCH (10:19)
--- NOTE | 2017-03-06 10:27 | PN ---
S Progress Note Note: pt states he refuses to take BP medication he was never on it. Pt was encouraged to take it but denies ever receiving any BP meds. medication was d/c as per pt request. pt states his BP only goes up when he is withdrawing it will go down when he gets his detox meds.
[2017-03-06] MEDS: chlordiazePOXIDE 5 MG CAPSULE PO SCH ×2 (17:34→22:25)
[2017-03-06] MEDS: NICOTINE POLACRILEX 2 MG GUM BUC PRN ×2 (17:44→22:31)
[2017-03-06] MEDS: MAGNESIUM HYDROX 2400MG/30ML ORAL SUSPENSION 30 ML CUP PO PRN (17:44)
[2017-03-06] MEDS: THIAMINE HCL 100 MG TABLET (FP) PO SCH (22:24)
[2017-03-06] MEDS: ZOLPIDEM TARTRATE 10 MG TABLET (PARK CARE ONLY) PO SCH (22:24)
[2017-03-07] MEDS: NICOTINE POLACRILEX 2 MG GUM BUC PRN (01:32)
[2017-03-07] MEDS: diphenhydrAMINE HCL 50 MG CAPSULE PO PRN (01:32)
[2017-03-07] MEDS: chlordiazePOXIDE HCL 25 MG CAPSULE PO PRN (01:32)
[2017-03-07] MEDS: chlordiazePOXIDE 5 MG CAPSULE PO SCH ×2 (05:16→10:21)
[2017-03-07] MEDS: cloNIDine HCL 0.1 MG TABLET PO PRN ×2 (05:45→22:11)
[2017-03-07] MEDS: CITALOPRAM HYDROBROMIDE 10 MG TABLET (FP) PO SCH (10:21)
[2017-03-07] MEDS: PRENATAL VITAMINS W/ FOLIC ACID TABLET (FP) PO SCH (10:21)
[2017-03-07] MEDS: RANITIDINE HCL 150 MG TABLET (FP) PO SCH ×2 (10:21→22:07)
[2017-03-07 11:26] LABS: GLUCOSE,FASTING 96 mg/dL (70-105); SGOT/AST 112 U/L (15-37); SGPT/ALT 106 U/L (12-78)
--- NOTE | 2017-03-07 12:09 | PN ---
S Progress Note (SOAP) Subjective: ALERT,IRRITABLE,ANXIOUS,INTERRUPTED SLEEP Objective: 03/07/17 12:07 Vital Signs Temperature 97.2 F L 03/07/17 10:58 Pulse Rate 88 03/07/17 10:58 Respiratory Rate 16 03/07/17 10:58 Blood Pressure 118/72 03/07/17 10:58 O2 Sat by Pulse Oximetry (%) Laboratory Last Values WBC 5.8 K/mm3 (4.0-10.0) D 03/05/17 06:00 RBC 4.50 M/mm3 (4.00-5.60) 03/05/17 06:00 Hgb 15.1 GM/dL (11.7-16.9) 03/05/17 06:00 Hct 43.9 % (35.4-49) 03/05/17 06:00 MCV 97.7 fl (80-96) H 03/05/17 06:00 MCHC 34.3 g/dl (32.0-35.9) 03/05/17 06:00 RDW 14.5 % (11.9-15.9) 03/05/17 06:00 Plt Count 266 K/MM3 (134-434) D 03/05/17 06:00 MPV 9.4 fl (7.5-11.1) 03/05/17 06:00 Sodium 134 mmol/L (136-145) L 03/05/17 06:00 Potassium 3.8 mmol/L (3.5-5.1) 03/05/17 06:00 Chloride 97 mmol/L (98-107) L 03/05/17 06:00 Carbon Dioxide 22 mmol/L (21-32) 03/05/17 06:00 Anion Gap 15 (8-16) 03/05/17 06:00 BUN 19 mg/dL (7-18) H 03/05/17 06:00 Creatinine 1.0 mg/dL (0.7-1.3) 03/05/17 06:00 Creat Clearance w eGFR > 60 (>60) 03/05/17 06:00 Random Glucose 184 mg/dL (74-106) H 03/05/17 06:00 Fasting Glucose Cancelled 03/07/17 08:00 Hemoglobin A1c % 5.4 % (4.8-6.0) 03/07/17 07:40 Calcium 8.0 mg/dL (8.5-10.1) L 03/05/17 06:00 Total Bilirubin 0.8 mg/dL (0.2-1.0) D 03/05/17 06:00 AST 112 U/L (15-37) H D 03/07/17 07:50 ALT 106 U/L (12-78) H D 03/07/17 07:50 Alkaline Phosphatase 85 U/L (45-117) D 03/05/17 06:00 Total Protein g/dl (6.4-8.2) 03/05/17 06:00 Albumin 2.9 g/dl (3.4-5.0) L D 03/05/17 06:00 Urine Color Yellow 03/04/17 14:00 Urine Appearance Clear 03/04/17 14:00 Urine pH 5.0 (5.0-8.0) 03/04/17 14:00 Ur Specific [place] 1.024 (1.001-1.035) 03/04/17 14:00 Urine Protein Negative (NEGATIVE) 03/04/17 14:00 Urine Glucose (UA) Negative (NEGATIVE) 03/04/17 14:00 Urine Ketones Negative (NEGATIVE) 03/04/17 14:00 Urine Blood Negative (NEGATIVE) 03/04/17 14:00 Urine Nitrite Negative (NEGATIVE) 03/04/17 14:00 Urine Bilirubin Negative (NEGATIVE) 03/04/17 14:00 Urine Urobilinogen Negative E.U./dl (0.2-1.0) 03/04/17 14:00 Ur Leukocyte Esterase Negative (NEGATIVE) 03/04/17 14:00 RPR Titer Nonreactive (NONREACTIVE) 03/05/17 06:00 Assessment: 03/07/17 12:08 WITHDRAWAL SYMPTOM Plan: CONTINUE DETOX,BGM BID
[2017-03-07] MEDS: HYDROCORTISONE 1% TOPICAL CREAM 30 GM TUBE TP SCH ×2 (12:26→22:08)
[2017-03-07] MEDS: chlordiazePOXIDE HCL 10 MG CAPSULE PO SCH ×2 (18:11→22:07)
[2017-03-07] MEDS: THIAMINE HCL 100 MG TABLET (FP) PO SCH (22:07)
[2017-03-07] MEDS: ZOLPIDEM TARTRATE 10 MG TABLET (PARK CARE ONLY) PO SCH (22:07)
[2017-03-08] MEDS: diphenhydrAMINE HCL 50 MG CAPSULE PO PRN (00:28)
[2017-03-08] MEDS: chlordiazePOXIDE HCL 10 MG CAPSULE PO SCH ×2 (05:45→11:07)
--- NOTE | 2017-03-08 07:40 | PN ---
S Progress Note (SOAP) Subjective: ALERT,NO COMPLAINT Objective: 03/08/17 07:38 Vital Signs Temperature 97.2 F L 03/08/17 07:33 Pulse Rate 51 L 03/08/17 07:33 Respiratory Rate 16 03/08/17 07:33 Blood Pressure 125/76 03/08/17 07:33 O2 Sat by Pulse Oximetry (%) Assessment: 03/08/17 07:38 DETOX COMPLETED,NO WITHDRAWAL SYMPTOM Plan: DISCHARGE TODAY,FOLLOW UP WITH AFTER CARE PROGRAM ARRANGEMENT AND PMD FOR MEDICAL PROBLEM
--- NOTE | 2017-03-08 07:46 | DS ---
[facility] Detox Discharge Summary Admission Date: 03/04/17 Discharge Date: 03/08/17 - History Present History: Alcohol Dependence, Cocaine Dependence Additional Comments: FOLLOW UP WITH AFTER CARE PROGRAM ARRANGEMENT AND PMD FOR FOLLOW UP ON BORDERLINED DM Pertinent Past History: LOW BACK PAIN NICOTINE DEPENDENCE DEPRESSION INSOMNIA - Physical Exam Results Vital Signs: Vital Signs Temperature 97.2 F L 03/08/17 07:33 Pulse Rate 51 L 03/08/17 07:33 Respiratory Rate 16 03/08/17 07:33 Blood Pressure 125/76 03/08/17 07:33 O2 Sat by Pulse Oximetry (%) Pertinent Admission Physical Exam Findings: WITHDRAWAL SYMPTOM - Treatment Hospital Course: Detox Protocol Followed, Detoxed Safely, Responded well, Discharged Condition Good, Rehab Referral Accepted Patient has Accepted a Rehab Referral to: [facility] - Medication Discharge Medications: Ambulatory Orders Citalopram Hydrobromide [Celexa -] 20 mg PO DAILY #30 tablet 12/29/16 Citalopram Hydrobromide [Celexa -] 10 mg PO DAILY #30 tablet 03/04/17 - Diagnosis (1) Alcohol dependence with uncomplicated withdrawal Current Visit: Yes Status: Acute (2) Cocaine dependence Current Visit: Yes Status: Acute Qualifiers: Substance use status: uncomplicated Qualified Code(s): F14.20 - Cocaine dependence, uncomplicated (3) Insomnia Current Visit: Yes Status: Acute Qualifiers: Insomnia type: unspecified Qualified Code(s): G47.00 - Insomnia, unspecified (4) Nicotine dependence Current Visit: Yes Status: Acute Qualifiers: Nicotine product type: cigarettes Substance use status: uncomplicated Qualified Code(s): F17.210 - Nicotine dependence, cigarettes, uncomplicated (5) Chronic bilateral low back pain Current Visit: Yes Status: Chronic (6) Depression Current Visit: Yes Status: Chronic Qualifiers: Depression Type: unspecified Qualified Code(s): F32.9 - Major depressive disorder, single episode, unspecified (7) Borderline diabetes mellitus Current Visit: Yes Status: Acute - AMA Did Patient Leave Against Medical Advice: No
[2017-03-08 10:20] VITALS: BP 114/78; PULSE 75; TEMP 97.9
[2017-03-08] MEDS: CITALOPRAM HYDROBROMIDE 10 MG TABLET (FP) PO SCH (11:06)
[2017-03-08] MEDS: HYDROCORTISONE 1% TOPICAL CREAM 30 GM TUBE TP SCH (11:06)
[2017-03-08] MEDS: RANITIDINE HCL 150 MG TABLET (FP) PO SCH (11:06)
[2017-03-08] MEDS: PRENATAL VITAMINS W/ FOLIC ACID TABLET (FP) PO SCH (11:06)
== END 2017-03-08 09:19 | disposition home or self-care (01) | DRG 774 ==
LOC: YASAS 08:33 → Y6N 12:32
PROVIDERS: ADMIT Internal Medicine Addiction Medicine; ATTEND Internal Medicine Addiction Medicine
PROC: HZ2ZZZZ Detoxification Services for Substance Abuse Treatment (ICD-10-PCS; principal; 2017-03-08)
DX: F10.230 Alcohol dependence with withdrawal, uncomplicated (principal); F14.20 Cocaine dependence, uncomplicated; F17.210 Nicotine dependence, cigarettes, uncomplicated; F32.9 Major depressive disorder, single episode, unspecified; F19.24 Other psychoactive substance dependence with psychoactive substance-induced mood disorder; G47.00 Insomnia, unspecified; G40.509 Epileptic seizures related to external causes, not intractable, without status epilepticus; E11.9 Type 2 diabetes mellitus without complications; M54.5 Low back pain; G89.29 Other chronic pain; K64.9 Unspecified hemorrhoids
CPT/HCPCS: 36415; 80053; 81003; 82947; 83036; 84450; 84460; 85027; 86593; 93005; 93010

== ENCOUNTER 2017-05-24 11:41 | Inpatient (IN) | payer OTHER ==
[2017-05-24 12:30] VITALS: BMI 26.6
--- NOTE | 2017-05-24 12:53 | HP ---
CIWA Score - CIWA Score Nausea/Vomitin Muscle Tremors: 3 Anxiety: 3 Agitation: 3 Paroxysmal Sweats: 1-Minimal Palms Moist Orientation: 0-Oriented Tacttile Disturbances: 2-Mild Itch/Numbness/Burn Auditory Disturbances: 2-Mild Harshness/Frighten Visual Disturbances: 2-Mild Sensitivity Headache: 2-Mild CIWA-Ar Total Score: 21 Admission ROS BHS - HPI Chief Complaint: i am back from er for detox from alcohol Allergies/Adverse Reactions: Allergies Allergy/AdvReac Type Severity Reaction Status Date / Time No Known Allergies Allergy Verified 05/24/17 13:10 History of Present Illness: this 52 years old male with alcohol dependence,medically clear to return to detox,receiving iv at [facility], last detox 03/04/17 to 03/08/17 depression syncope last today seizure last 2 years ago multiple admissions in detox,keep relapsing longest period 5 years Exam Limitations: No Limitations - Ebola screening Have you traveled outside of the country in the last 21 days: No Have you had contact with anyone from an Ebola affected area: No Have you been sick,other than usual withdrawal symptoms: No Do you have a fever: No - Review of Systems Constitutional: Chills, Loss of Appetite, Malaise, Night Sweats, Changes in sleep EENT: reports: Tearing, Nose Congestion Respiratory: reports: No Symptoms reported Cardiac: reports: Palpitations GI: reports: Diarrhea, Nausea, Poor Fluid Intake, Vomiting : reports: No Symptoms Reported Musculoskeletal: reports: Back Pain, Muscle Pain Integumentary: reports: Dryness Neuro: reports: Headache, Tremors Endocrine: reports: No Symptoms Reported Hematology: reports: No Symptoms Reported Psychiatric: reports: Judgement Intact, Mood/Affect Appropiate, Depressed Patient History - Patient Medical History Hx Anemia: No Hx Asthma: No Hx Chronic Obstructive Pulmonary Disease (COPD): No Hx Cancer: No Hx Cardiac Disorders: No Hx Congestive Heart Failure: No Hx Hypertension: No Hx Hypercholesterolemia: No Hx Pacemaker: No HX Cerebrovascular Accident: No Hx Seizures: Yes (alcohol related-last episode was in 2014) Hx Dementia: No Hx Diabetes: No Hx Gastrointestinal Disorders: No Hx Liver Disease: No Hx Genitourinary Disorders: No Hx Sexually Transmitted Disorders: No Hx Renal Disease (ESRD): No Hx Thyroid Disease: No Hx Human Immunodeficiency Virus (HIV): No (last negative 2015) Hx Hepatitis C: No Hx Depression: Yes Hx Suicide Attempt: No Hx Bipolar Disorder: No Hx Schizophrenia: No Other Medical History: no suicidal,no homicidal - Patient Surgical History Past Surgical History: No Hx Neurologic Surgery: No Hx Cataract Extraction: No Hx Cardiac Surgery: No Hx Lung Surgery: No Hx Breast Surgery: No Hx Breast Biopsy: No Hx Abdominal Surgery: No Hx Appendectomy: No Hx Cholecystectomy: No Hx Genitourinary Surgery: No Hx Section: No Hx Orthopedic Surgery: No Hx Hysterectomy: No Anesthesia Reaction: No - PPD History Previous Implant?: Yes Documented Results: Negative w/proof Implanted On Prior [facility] Admission?: Yes Date: 06/19/16 Results: 0 mm PPD to be Administered?: No - Smoking Cessation Smoking history: Current every day smoker Have you smoked in the past 12 months: Yes Aproximately how many cigarettes per day: 2 Cigars Per Day: 0 Hx Chewing Tobacco Use: No Initiated information on smoking cessation: Yes 'Breaking Loose' booklet given: 05/24/17 - Substance & Tx. History Hx Alcohol Use: Yes Hx Substance Use: No Substance Use Type: Alcohol Hx Substance Use Treatment: Yes ([facility] 03/04/17 to 03/08/17) - Substances Abused Alcohol Route: Oral Frequency: Daily Amount used: 2pints of bacardi/4 of 40 ozs of beer Age of first use: 21 Date of Last Use: 05/24/17 Family Disease History - Family Disease History Family Disease History: Heart Disease: Mother ( 2nd cva), Other: Father (alive, no med problems), Mother Admission Physical Exam S - Vital Signs Vital Signs: Vital Signs - 24 hr 05/24/17 11:52 Temperature 96.2 F L Pulse Rate 90 Respiratory 20 Rate Blood Pressure 86/54 - Physical General Appearance: Yes: Moderate Distress, Tremorous, Irritable, Anxious HEENTM: Yes: [place], Nasal Congestion, Rhinorrhea Respiratory: Yes: Lungs Clear, Normal Breath Sounds, No Respiratory Distress Neck: Yes: Within Normal Limits, Supple, Trachea in good position Breast: Yes: Within Normal Limits Cardiology: Yes: Within Normal Limits, Regular Rhythm, Regular Rate, S1, S2 Abdominal: Yes: Within Normal Limits, Normal Bowel Sounds, Non Tender, Flat, Soft Genitourinary: Yes: Within Normal Limits Back: Yes: Muscle Spasm Musculoskeletal: Yes: Back pain, Muscle Pain Extremities: Yes: Tremors Neurological: Yes: demographic analyst II-XII NML intact, Fully Oriented, Alert, Motor Strength 5/5 Integumentary: Yes: Dry Lymphatic: Yes: Within Normal Limits - Diagnostic (1) Alcohol dependence with uncomplicated withdrawal Current Visit: No Status: Acute (2) Nicotine dependence Current Visit: No Status: Acute Qualifiers: Nicotine product type: cigarettes Substance use status: uncomplicated Qualified Code(s): F17.210 - Nicotine dependence, cigarettes, uncomplicated (3) Seizure due to alcohol withdrawal Current Visit: Yes Status: Acute (4) Syncope Current Visit: Yes Status: Acute (5) Insomnia Current Visit: No Status: Acute Qualifiers: Insomnia type: unspecified Qualified Code(s): G47.00 - Insomnia, unspecified (6) Depression Current Visit: No Status: Chronic Qualifiers: Depression Type: unspecified Qualified Code(s): F32.9 - Major depressive disorder, single episode, unspecified Cleared for Admission [facility] - Detox or Rehab [facility] Level of Care: Medically Managed Detox Regimen/Protocol: Librium Screened but not Admitted - Documentation of Visit Screened but not Admitted: Yes Level of Care Recommended at this Time: ER Evaluation/Care Additional Information/Explanation: patient has episode of symcope,cold crammy, diaphoretic,rapid response called,narcan 0.8 cc 2 mgs im given. patient alert, bp 86/54,p 90,r20,t 96.2. pulse oxy 94. o2 nasal canula 4l/min. deneid chest pain. denied medical [id number]. impression syncope. alcohol dependence. treatment narcan 0.8 mgs im. o2 nasal canula 5 l/min. transfer to [facility] er for evaluation and treatment by [facility],spoke with dr guy,nursing chemical supervisor present. [facility] Breath Alcohol Content Breath Alcohol Content: 0.081 Urine Drug Screen - Results Drug Screen Negative: Yes
[2017-05-24] MEDS ORDERED: LOPERAMIDE HCL 2 MG CAPSULE PO PRN (15:51)
[2017-05-24] MEDS ORDERED: MAGNESIUM HYDROX 2400MG/30ML ORAL SUSPENSION 30 ML CUP PO PRN (15:51)
[2017-05-24] MEDS ORDERED: IBUPROFEN 400 MG TABLET (FP) PO PRN (15:51)
[2017-05-24] MEDS ORDERED: MAG HYDROX/AL HYDROX/SIMETH 30 ML UNIT-DOSE CUP PO PRN (15:51)
[2017-05-24] MEDS ORDERED: MENTHOL/PHENOL 1 EACH UD MM PRN (15:51)
[2017-05-24] MEDS ORDERED: P-EPHED 60MG/TRIPROLIDI 2.5MG TABLET PO PRN (15:51)
[2017-05-24] MEDS ORDERED: ACETAMINOPHEN 325 MG TABLET (FP) PO PRN (15:51)
[2017-05-24] MEDS ORDERED: MAGNESIUM CITRATE 300 ML BOTTLE PO PRN (15:51)
[2017-05-24] MEDS ORDERED: guaiFENesin/D-METHORPHAN HB 10 ML UNIT-DOSE CUPS PO PRN (15:51)
[2017-05-24] MEDS: chlordiazePOXIDE HCL 25 MG CAPSULE PO SCH ×2 (17:06→22:33)
[2017-05-24 20:07] LABS: URINE APPEARANCE CLEAR; URINE BILIRUBIN NEGATIVE (NEGATIVE); URINE BLOOD NEGATIVE (NEGATIVE); URINE COLOR STRAW; URINE GLUCOSE (UA) NEGATIVE (NEGATIVE); URINE KETONE NEGATIVE (NEGATIVE); URINE LEUK ESTERASE NEGATIVE (NEGATIVE); URINE NITRITE NEGATIVE (NEGATIVE); URINE PROTEIN NEGATIVE (NEGATIVE); URINE UROBILINOGEN NEGATIVE mg/dL (0.2-1.0)
[2017-05-24] MEDS: chlordiazePOXIDE HCL 25 MG CAPSULE PO PRN (21:03)
[2017-05-24] MEDS: THIAMINE HCL 100 MG TABLET (FP) PO SCH (22:33)
[2017-05-24] MEDS: diphenhydrAMINE HCL 50 MG CAPSULE PO PRN (22:33)
[2017-05-25] MEDS: chlordiazePOXIDE HCL 25 MG CAPSULE PO SCH ×4 (05:31→22:02)
--- NOTE | 2017-05-25 08:11 | PN ---
[facility] CIWA - CIWA Score Nausea/Vomitin Muscle Tremors: 3 Anxiety: 3 Agitation: 2 Paroxysmal Sweats: 1-Minimal Palms Moist Orientation: 0-Oriented Tacttile Disturbances: 1-Very Mild Itch/Numbness Auditory Disturbances: 1-Very Mild Visual Disturbances: 1-Very Mild Sensitivity Headache: 2-Mild CIWA-Ar Total Score: 17 BHS Progress Note (SOAP) Subjective: ALERT,IRRITABLE,ANXIOUS,INTERRUPTED SLEEP,TREMOR Objective: 05/25/17 08:08 Vital Signs Temperature 97.2 F L 05/25/17 06:01 Pulse Rate 69 05/25/17 06:01 Respiratory Rate 18 05/25/17 06:01 Blood Pressure 147/90 05/25/17 06:01 O2 Sat by Pulse Oximetry (%) EKG SINUS TACHYCARDIA 104/MIN NO CHEST PAIN,NO SOB,NO DIZZINESS Laboratory Last Values POC Glucometer 144 UNITS (()) 05/24/17 12:11 Urine Color Straw 05/24/17 16:25 Urine Appearance Clear 05/24/17 16:25 Urine pH 6.0 (5.0-8.0) 05/24/17 16:25 Ur Specific [place] <= 1.005 (1.005-1.025) 05/24/17 16:25 Urine Protein Negative (NEGATIVE) 05/24/17 16:25 Urine Glucose (UA) Negative (NEGATIVE) 05/24/17 16:25 Urine Ketones Negative (NEGATIVE) 05/24/17 16:25 Urine Blood Negative (NEGATIVE) 05/24/17 16:25 Urine Nitrite Negative (NEGATIVE) 05/24/17 16:25 Urine Bilirubin Negative (NEGATIVE) 05/24/17 16:25 Urine Urobilinogen Negative mg/dL (0.2-1.0) 05/24/17 16:25 Ur Leukocyte Esterase Negative (NEGATIVE) 05/24/17 16:25 LABS PENDING Assessment: 05/25/17 08:10 WITHDRAWAL SYMPTOM Plan: CONTINUE DETOX,BGM MONITORING,MENTION HISTORY OF PREDIABETES
--- NOTE | 2017-05-25 08:48 | CONSULT ---
[facility] Psychiatric Consult - Data Date of interview: 05/25/17 Admission source: [facility] Identifying data: This is 52 years old male with no psychiatric hospitalization history intoxicated with:'Alcohol, Nicoytine and Cocaine abuse hisstory Substance Abuse History: - Smoking Cessation. Smoking history: Current every day smoker. Have you smoked in the past 12 months: Yes. Aproximately how many cigarettes per day: 2. Cigars Per Day: 0. Hx Chewing Tobacco Use: No. Initiated information on smoking cessation: Yes. 'Breaking Loose' booklet given : 05/24/17. - Substance & Tx. History. Hx Alcohol Use: Yes. Hx Substance Use : No. Substance Use Type: Alcohol. Hx Substance Use Treatment: Yes ([facility] 03/04/17 to 03/08/17). - Substances Abused. Alcohol. Route: Oral. Frequency: Daily. Amount used: 2pints of bacardi/4 of 40 ozs of beer. Age of first use: 21. Date of Last Use: 05/24/17 Medical History: DT HISTORY, SEIZURE HISTORY, SYNCOPE HISTORY, lbp, HEMORRHOIDS HISTORY, DM history Psychiatric History: Patient reports history of depression, reports taking priort ol admissionm Celexa 20mg poqd, Ambien 10mg p[o prn Physical/Sexual Abuse/Trauma History: Denies Additional Comment: Celexa 20mg poqd,. Ambien 10mg po prn qhs Mental Status Exam - Mental Status Exam Alert and Oriented to: Person Cognitive Function: Fair Patient Appearance: Unkempt Mood: Sad Affect: Flat Patient Behavior: Cooperative Speech Pattern: Delayed Voice Loudness: Mildly Soft/Quiet Thought Process: Circumstantial Thought Disorder: Being Controlled Hallucinations: Denies Suicidal Ideation: Denies Homicidal Ideation: Denies Insight/Judgement: Fair Sleep: Difficulty falling asleep Appetite: Fair Muscle strength/Tone: Normal Gait/Station: Normal Additional Comments: Celexa 20mg poqd,. Ambien 10mg po prn qhs Psychiatric Findings - Problem List ([place] 1, 2,3) (1) Seizure due to alcohol withdrawal Current Visit: Yes Status: Acute (2) Alcohol dependence Current Visit: No Status: Acute Qualifiers: Substance use status: uncomplicated Qualified Code(s): F10.20 - Alcohol dependence, uncomplicated (3) Alcohol dependence with uncomplicated withdrawal Current Visit: No Status: Acute (4) Alcohol withdrawal Current Visit: No Status: Acute Qualifiers: Complication of substance-induced condition: uncomplicated Qualified Code(s): F10.230 - Alcohol dependence with withdrawal, uncomplicated (5) Cocaine dependence Current Visit: No Status: Acute Qualifiers: Substance use status: uncomplicated Qualified Code(s): F14.20 - Cocaine dependence, uncomplicated (6) Nicotine dependence Current Visit: No Status: Acute Qualifiers: Nicotine product type: cigarettes Substance use status: uncomplicated Qualified Code(s): F17.210 - Nicotine dependence, cigarettes, uncomplicated (7) Substance induced mood disorder Current Visit: No Status: Acute - Initial Treatment Plan Initial Treatment Plan: Celexa 20mg poqd,. Ambien 10mg po prn qhs
[2017-05-25 10:05] LABS: MCH 32.9 pg (25.7-33.7); MCHC 33.9 g/dl (32.0-35.9); MEAN CELL VOLUME 97.2 fl (80-96); MEAN PLT VOLUME 8.5 fl (7.5-11.1); PLATELET COUNT 242 K/MM3 (134-434); RDW 12.7 % (11.9-15.9); WHITE BLOOD COUNT 7.5 K/mm3 (4.0-10.0)
[2017-05-25] MEDS: PRENATAL VITAMINS W/ FOLIC ACID TABLET (FP) PO SCH (10:08)
[2017-05-25] MEDS: CITALOPRAM HYDROBROMIDE 20 MG TABLET (FP) PO SCH (10:08)
[2017-05-25 10:23] LABS: ALBUMIN 2.9 g/dl (3.4-5.0); ANION GAP 7 (8-16); CALCIUM 8.6 mg/dL (8.5-10.1); CO2 26 mmol/L (21-32); CREATININE 1.1 mg/dL (0.7-1.3); GLUCOSE,RANDOM 103 mg/dL (74-106); SGOT/AST 32 U/L (15-37); SGPT/ALT 42 U/L (12-78)
[2017-05-25 10:25] LABS: ALK PHOS 54 U/L (45-117); BILIRUBIN,TOTAL 0.4 mg/dL (0.2-1.0); TOT PROT 5.7 g/dl (6.4-8.2)
[2017-05-25] MEDS: chlordiazePOXIDE HCL 25 MG CAPSULE PO PRN ×2 (12:03→19:05)
[2017-05-25] MEDS: hydrOXYzine PAMOATE 50 MG CAPSULE (FP) PO PRN ×2 (13:38→23:05)
--- NOTE | 2017-05-25 17:00 | EKG ---
Test Reason : Blood Pressure : / mmHG Vent. Rate : 104 BPM Atrial Rate : 104 BPM P-R Int : 126 ms QRS Dur : 088 ms QT Int : 348 ms P-R-T Axes : 054 014 002 degrees QTc Int : 457 ms SINUS TACHYCARDIA OTHERWISE NORMAL ECG WHEN COMPARED WITH ECG OF 24-MAY-2017 13:15, VENT. RATE HAS INCREASED Confirmed by MOIZ FERNANDEZ MD ([id number]) on 05/25/2017 4:59:51 PM Referred By: Confirmed By:MOIZ FERNANDEZ MD
[2017-05-25] MEDS: THIAMINE HCL 100 MG TABLET (FP) PO SCH (22:02)
[2017-05-25] MEDS: ZOLPIDEM TARTRATE 10 MG TABLET (PARK CARE ONLY) PO PRN (22:02)
[2017-05-26] MEDS: chlordiazePOXIDE HCL 25 MG CAPSULE PO PRN ×3 (00:34→15:21)
[2017-05-26] MEDS: diphenhydrAMINE HCL 50 MG CAPSULE PO PRN (00:34)
[2017-05-26] MEDS: chlordiazePOXIDE HCL 25 MG CAPSULE PO SCH ×2 (05:26→10:05)
[2017-05-26] MEDS ORDERED: cloNIDine HCL 0.1 MG TABLET PO PRN (07:24)
--- NOTE | 2017-05-26 08:18 | PN ---
S CIWA - CIWA Score Nausea/Vomitin Muscle Tremors: 3 Anxiety: 3 Agitation: 3 Paroxysmal Sweats: 1-Minimal Palms Moist Orientation: 0-Oriented Tacttile Disturbances: 1-Very Mild Itch/Numbness Auditory Disturbances: 1-Very Mild Visual Disturbances: 1-Very Mild Sensitivity Headache: 2-Mild CIWA-Ar Total Score: 18 BHS Progress Note (SOAP) Subjective: ALERT,IRRITABLE,ANXIOUS,INTERRUPTED SLEEP,TREMOR,IRRITABLE Objective: 05/26/17 08:15 Vital Signs Temperature 98.1 F 05/26/17 06:12 Pulse Rate 79 05/26/17 06:12 Respiratory Rate 18 05/26/17 06:12 Blood Pressure 163/105 05/26/17 06:12 O2 Sat by Pulse Oximetry (%) Laboratory Last Values WBC 7.5 K/mm3 (4.0-10.0) 05/25/17 07:15 RBC 3.88 M/mm3 (4.00-5.60) L 05/25/17 07:15 Hgb 12.8 GM/dL (11.7-16.9) 05/25/17 07:15 Hct 37.7 % (35.4-49) 05/25/17 07:15 MCV 97.2 fl (80-96) H 05/25/17 07:15 MCH 32.9 pg (25.7-33.7) 05/25/17 07:15 MCHC 33.9 g/dl (32.0-35.9) 05/25/17 07:15 RDW 12.7 % (11.9-15.9) 05/25/17 07:15 Plt Count 242 K/MM3 (134-434) 05/25/17 07:15 MPV 8.5 fl (7.5-11.1) 05/25/17 07:15 Sodium 142 mmol/L (136-145) 05/25/17 07:15 Potassium 3.8 mmol/L (3.5-5.1) 05/25/17 07:15 Chloride 109 mmol/L (98-107) H 05/25/17 07:15 Carbon Dioxide 26 mmol/L (21-32) D 05/25/17 07:15 Anion Gap 7 (8-16) L 05/25/17 07:15 BUN 16 mg/dL (7-18) 05/25/17 07:15 Creatinine 1.1 mg/dL (0.7-1.3) 05/25/17 07:15 Creat Clearance w eGFR > 60 (>60) 05/25/17 07:15 POC Glucometer 100 UNITS (()) 05/25/17 16:33 Random Glucose 103 mg/dL (74-106) D 05/25/17 07:15 Calcium 8.6 mg/dL (8.5-10.1) 05/25/17 07:15 Total Bilirubin 0.4 mg/dL (0.2-1.0) D 05/25/17 07:15 AST 32 U/L (15-37) 05/25/17 07:15 ALT 42 U/L (12-78) 05/25/17 07:15 Alkaline Phosphatase 54 U/L (45-117) 05/25/17 07:15 Total Protein 5.7 g/dl (6.4-8.2) L 05/25/17 07:15 Albumin 2.9 g/dl (3.4-5.0) L 05/25/17 07:15 Urine Color Straw 05/24/17 16:25 Urine Appearance Clear 05/24/17 16:25 Urine pH 6.0 (5.0-8.0) 05/24/17 16:25 Ur Specific [place] <= 1.005 (1.005-1.025) 05/24/17 16:25 Urine Protein Negative (NEGATIVE) 05/24/17 16:25 Urine Glucose (UA) Negative (NEGATIVE) 05/24/17 16:25 Urine Ketones Negative (NEGATIVE) 05/24/17 16:25 Urine Blood Negative (NEGATIVE) 05/24/17 16:25 Urine Nitrite Negative (NEGATIVE) 05/24/17 16:25 Urine Bilirubin Negative (NEGATIVE) 05/24/17 16:25 Urine Urobilinogen Negative mg/dL (0.2-1.0) 05/24/17 16:25 Ur Leukocyte Esterase Negative (NEGATIVE) 05/24/17 16:25 RPR Titer Nonreactive (NONREACTIVE) 05/25/17 07:15 Assessment: 05/26/17 08:16 WITHDRAWAL SYMPTOM Plan: CONTINUE DETOX,PSYCHIATRIC EVALUATION CONCERNING MEDICATION BY PATIENT'S REQUEST
[2017-05-26] MEDS: PRENATAL VITAMINS W/ FOLIC ACID TABLET (FP) PO SCH (10:05)
[2017-05-26] MEDS: CITALOPRAM HYDROBROMIDE 20 MG TABLET (FP) PO SCH (10:05)
[2017-05-26] MEDS: NIFEdipine E.R. 30 MG TABLET (FP) PO SCH (10:07)
--- NOTE | 2017-05-26 12:25 | PN ---
[facility] Progress Note Note: Psychiatry Attending's note : Nicolás request for psychiatric re-consult. Patient is approached at bedside for re-evaluation. 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 Staff made aware.
[2017-05-26] MEDS: chlordiazePOXIDE 5 MG CAPSULE PO SCH ×2 (17:48→22:08)
[2017-05-26] MEDS: THIAMINE HCL 100 MG TABLET (FP) PO SCH (22:08)
[2017-05-26] MEDS: ZOLPIDEM TARTRATE 10 MG TABLET (PARK CARE ONLY) PO PRN (22:09)
[2017-05-27] MEDS: diphenhydrAMINE HCL 50 MG CAPSULE PO PRN (01:27)
[2017-05-27] MEDS: chlordiazePOXIDE 5 MG CAPSULE PO SCH ×2 (05:51→10:06)
--- NOTE | 2017-05-27 09:46 | PN ---
B[facility] Progress Note (SOAP) Subjective: sweats, shakes, constiptation Objective: 05/27/17 09:43 Vital Signs Temperature 97.3 F L 05/27/17 06:30 Pulse Rate 67 05/27/17 06:30 Respiratory Rate 18 05/27/17 06:30 Blood Pressure 133/84 05/27/17 06:30 O2 Sat by Pulse Oximetry (%) Laboratory Tests 05/24/17 05/24/17 05/25/17 12:11 16:25 07:15 WBC 7.5 RBC 3.88 L Hgb 12.8 Hct 37.7 MCV 97.2 H MCH 32.9 MCHC 33.9 RDW 12.7 Plt Count 242 MPV 8.5 Sodium Potassium Chloride Carbon Dioxide Anion Gap BUN Creatinine Creat Clearance w eGFR POC Glucometer 144 Random Glucose Calcium Total Bilirubin AST ALT Alkaline Phosphatase Total Protein Albumin Urine Color Straw Urine Appearance Clear Urine pH 6.0 Ur Specific [place] <= 1.005 Urine Protein Negative Urine Glucose (UA) Negative Urine Ketones Negative Urine Blood Negative Urine Nitrite Negative Urine Bilirubin Negative Urine Urobilinogen Negative Ur Leukocyte Esterase Negative RPR Titer 05/25/17 05/25/17 05/25/17 07:15 07:15 16:33 WBC RBC Hgb Hct MCV MCH MCHC RDW Plt Count MPV Sodium 142 Potassium 3.8 Chloride 109 H Carbon Dioxide 26 D Anion Gap 7 L BUN 16 Creatinine 1.1 Creat Clearance w eGFR > 60 POC Glucometer 100 Random Glucose 103 D Calcium 8.6 Total Bilirubin 0.4 D AST 32 ALT 42 Alkaline Phosphatase 54 Total Protein 5.7 L Albumin 2.9 L Urine Color Urine Appearance Urine pH Ur Specific [place] Urine Protein Urine Glucose (UA) Urine Ketones Urine Blood Urine Nitrite Urine Bilirubin Urine Urobilinogen Ur Leukocyte Esterase RPR Titer Nonreactive 05/26/17 05/26/17 05/27/17 05:29 16:36 05:56 WBC RBC Hgb Hct MCV MCH MCHC RDW Plt Count MPV Sodium Potassium Chloride Carbon Dioxide Anion Gap BUN Creatinine Creat Clearance w eGFR POC Glucometer 104 103 109 Random Glucose Calcium Total Bilirubin AST ALT Alkaline Phosphatase Total Protein Albumin Urine Color Urine Appearance Urine pH Ur Specific [place] Urine Protein Urine Glucose (UA) Urine Ketones Urine Blood Urine Nitrite Urine Bilirubin Urine Urobilinogen Ur Leukocyte Esterase RPR Titer pt aox3 in nad ambulating Assessment: 05/27/17 09:44 withdrawal sx's 05/27/17 09:45 contstipation -pt refused colace Plan: cont. detox increase fluids increase fliber d/c in am
--- NOTE | 2017-05-27 10:04 | PN ---
Psychiatric Progress Note Vital Signs: Vital Signs Period Temp Pulse Resp BP Sys/Hernández Pulse Ox Last 24 Hr 97.3 F-97.9 F 67-81 18-20 133-143/84-86 Date of Session: 05/27/17 Chief Complaint:: Insomnia HPI: Patient reports insomnia after PRN Ambien order Current Medications: Active Medications Generic Name Dose Route Start Last Admin Trade Name Freq PRN Reason Stop Dose Admin Acetaminophen 650 mg 05/24/17 15:51 Tylenol - PO Q4H PRN FEVER OR PAIN Al Hydroxide/Mg Hydroxide 30 ml 05/24/17 15:51 Mylanta Oral Suspension - PO Q6H PRN DYSPEPSIA Chlordiazepoxide HCl 10 mg 05/27/17 17:00 Librium - PO 05/28/17 11:01 [id number] NAERNDRA Chlordiazepoxide HCl 25 mg 05/24/17 15:51 05/26/17 15:21 Librium - PO 05/27/17 15:50 25 mg Q4H PRN Administration WITHDRAWAL(CONT SUBST) Chlordiazepoxide HCl 15 mg 05/26/17 17:00 05/27/17 05:51 Librium - PO 05/27/17 11:01 15 mg [id number] NARENDRA Administration Citalopram Hydrobromide 20 mg 05/25/17 10:00 05/26/17 10:05 Celexa - PO 20 mg DAILY NARENDRA Administration Clonidine 0.1 mg 05/26/17 07:24 05/26/17 07:57 Catapres - PO 0.1 mg TID PRN Administration HYPERTENSION Diphenhydramine HCl 50 mg 05/24/17 15:51 05/27/17 01:27 Benadryl - PO 50 mg HSMR1 PRN Administration INSOMNIA Eucalyptus/Menthol/Phenol/Sorbitol 1 each 05/24/17 15:51 Cepastat Lozenge - MM Q4H PRN SORE THROAT Guaifenesin 10 ml 05/24/17 15:51 Robitussin Dm - PO Q6H PRN COUGH Hydroxyzine Pamoate 50 mg 05/25/17 11:24 05/25/17 23:05 Vistaril - PO 50 mg Q6H PRN Administration ANXIETY Ibuprofen 400 mg 05/24/17 15:51 Motrin - PO Q6H PRN SEVERE PAIN Loperamide HCl 4 mg 05/24/17 15:51 Imodium - PO Q6H PRN DIARRHEA Magnesium Citrate 300 ml 05/24/17 15:51 05/26/17 07:57 Citroma - PO 300 ml Q48H PRN Administration CONSTIPATION Magnesium Hydroxide 30 ml 05/24/17 15:51 05/25/17 17:46 Milk Of Magnesia - PO 30 ml DAILY PRN Administration CONSTIPATION Nifedipine 30 mg 05/26/17 10:00 05/26/17 10:07 Procardia Xl - PO Not Given DAILY NARENDRA Multivit/Folic Acid/Iron 1 tab 05/25/17 10:00 05/26/17 10:05 Vitamins (Sjr) - PO 1 tab DAILY NARENDRA Administration Pseudoephedrine/Triprolidine 1 combo 05/24/17 15:51 Actifed - PO TID PRN NASAL CONGESTION Quetiapine Fumarate 100 mg 05/27/17 22:00 Seroquel - PO HS NARENDRA Thiamine HCl 100 mg 05/24/17 22:00 05/26/17 22:08 Vitamin B1 - PO 100 mg HS NARENDRA Administration Zolpidem Tartrate 10 mg 05/25/17 22:00 05/26/17 22:09 Ambien - PO 05/28/17 21:59 10 mg HS PRN Administration INSOMNIA Medication(s) Change(s): Seroquel 100mg po qhs Mental Status Exam - Mental Status Exam Alert and Oriented to: Person Cognitive Function: Fair Patient Appearance: Well Groomed Mood: Apprehensive Affect: Mood Congruent Patient Behavior: Cooperative Speech Pattern: Appropriate Voice Loudness: Normal Thought Process: Goal Oriented Thought Disorder: Being Controlled Hallucinations: Denies Suicidal Ideation: Denies Homicidal Ideation: Denies Insight/Judgement: Fair Sleep: Difficulty falling asleep Appetite: Weight gain Muscle strength/Tone: Normal Gait/Station: Normal Additional Comments: Seroquel 100mg po qhs Psychiatric Treatment Plan - Problem List (1) Seizure due to alcohol withdrawal Current Visit: Yes (2) Alcohol dependence Current Visit: No Qualifiers: Substance use status: uncomplicated Qualified Code(s): F10.20 - Alcohol dependence, uncomplicated (3) Alcohol dependence with uncomplicated withdrawal Current Visit: No (4) Alcohol withdrawal Current Visit: No Qualifiers: Complication of substance-induced condition: uncomplicated Qualified Code(s): F10.230 - Alcohol dependence with withdrawal, uncomplicated (5) Cocaine dependence Current Visit: No Qualifiers: Substance use status: uncomplicated Qualified Code(s): F14.20 - Cocaine dependence, uncomplicated (6) Nicotine dependence Current Visit: No Qualifiers: Nicotine product type: cigarettes Substance use status: uncomplicated Qualified Code(s): F17.210 - Nicotine dependence, cigarettes, uncomplicated (7) Substance induced mood disorder Current Visit: No Initial treatment plan: Seroquel 100mg po qhs
[2017-05-27] MEDS: CITALOPRAM HYDROBROMIDE 20 MG TABLET (FP) PO SCH (10:06)
[2017-05-27] MEDS: PRENATAL VITAMINS W/ FOLIC ACID TABLET (FP) PO SCH (10:06)
[2017-05-27] MEDS: NIFEdipine E.R. 30 MG TABLET (FP) PO SCH ×2 (10:07→10:15)
[2017-05-27] MEDS: chlordiazePOXIDE HCL 25 MG CAPSULE PO PRN (14:15)
[2017-05-27] MEDS: chlordiazePOXIDE HCL 10 MG CAPSULE PO SCH ×2 (18:01→22:07)
[2017-05-27] MEDS ORDERED: QUEtiapine FUMARATE 100 MG TABLET (FP) PO SCH (22:00)
[2017-05-27] MEDS: THIAMINE HCL 100 MG TABLET (FP) PO SCH (22:07)
[2017-05-28] MEDS: chlordiazePOXIDE HCL 10 MG CAPSULE PO SCH (05:44)
[2017-05-28 06:28] VITALS: BP 130/73; PULSE 70; TEMP 97
--- NOTE | 2017-05-28 07:40 | PN ---
S Progress Note (SOAP) Subjective: ALERT,NO COMPLAINT Objective: 05/28/17 07:39 Vital Signs Temperature 97 F L 05/28/17 06:27 Pulse Rate 70 05/28/17 06:27 Respiratory Rate 18 05/28/17 06:27 Blood Pressure 130/73 05/28/17 06:27 O2 Sat by Pulse Oximetry (%) Assessment: 05/28/17 07:39 DETOX COMPLETED,NO WITHDRAWAL SYMPTOM Plan: DISCHARGE TODAY,FOLLOW UP WITH AFTER CARE PROGRAM ARRANGEMENT
--- NOTE | 2017-05-28 07:43 | DS ---
[facility] Detox Discharge Summary Admission Date: 05/24/17 Discharge Date: 05/28/17 - History Present History: Alcohol Dependence Additional Comments: FOLLOW UP WITH [facility] ARR[facility]EMENT Pertinent Past History: SEIZURE ALCOHOL RELATED SYNCOPE INSOMNIA - Physical Exam Results Vital Signs: Vital Signs Temperature 97 F L 05/28/17 06:27 Pulse Rate 70 05/28/17 06:27 Respiratory Rate 18 05/28/17 06:27 Blood Pressure 130/73 05/28/17 06:27 O2 Sat by Pulse Oximetry (%) Pertinent Admission Physical Exam Findings: WITHDRAWAL SYMPTOM - Treatment Hospital Course: Detox Protocol Followed, Detoxed Safely, Responded well, Discharged Condition Good, Rehab Referral Accepted Patient has Accepted a Rehab Referral to: [facility] - Medication Discharge Medications: Ambulatory Orders Citalopram Hydrobromide [Celexa -] 20 mg PO DAILY 05/24/17 Citalopram Hydrobromide [Celexa -] 20 mg PO DAILY #30 tablet 05/25/17 Quetiapine Fumarate [Seroquel] 100 mg PO HS #30 tab 05/27/17 - Diagnosis (1) Alcohol dependence with uncomplicated withdrawal Current Visit: No Status: Acute (2) Nicotine dependence Current Visit: No Status: Acute Qualifiers: Nicotine product type: cigarettes Substance use status: uncomplicated Qualified Code(s): F17.210 - Nicotine dependence, cigarettes, uncomplicated (3) Seizure due to alcohol withdrawal Current Visit: Yes Status: Acute (4) Syncope Current Visit: Yes Status: Acute (5) Insomnia Current Visit: No Status: Acute Qualifiers: Insomnia type: unspecified Qualified Code(s): G47.00 - Insomnia, unspecified (6) Depression Current Visit: No Status: Chronic Qualifiers: Depression Type: unspecified Qualified Code(s): F32.9 - Major depressive disorder, single episode, unspecified - AMA Did Patient Leave Against Medical Advice: No
== END 2017-05-28 09:10 | disposition home or self-care (01) | DRG 774 ==
LOC: YASAS 11:41 → UNDOADMIN 12:38 → Y3N 12:38 → Y6N 15:36
PROVIDERS: ADMIT Internal Medicine; ATTEND Internal Medicine
PROC: HZ2ZZZZ Detoxification Services for Substance Abuse Treatment (ICD-10-PCS; principal; 2017-05-28)
DX: F10.230 Alcohol dependence with withdrawal, uncomplicated (principal); F14.20 Cocaine dependence, uncomplicated; F17.210 Nicotine dependence, cigarettes, uncomplicated; F19.24 Other psychoactive substance dependence with psychoactive substance-induced mood disorder; F32.9 Major depressive disorder, single episode, unspecified; G47.00 Insomnia, unspecified; G40.509 Epileptic seizures related to external causes, not intractable, without status epilepticus
CPT/HCPCS: 36415; 80053; 81003; 85027; 86593; 93005; 93010

== ENCOUNTER 2017-05-24 13:02 | Emergency (ER) | payer OTHER ==
--- NOTE | 2017-05-24 13:08 | PDOC ---
History of Present Illness <Ruben Silva - Last Filed: 05/24/17 14:39> - General History Source: Patient, Primary Care Provider Exam Limitations: No Limitations - History of Present Illness Initial Comments: 05/24/17 13:19 The patient is a 52-year-old man with a significant past medical history of depression, EtOH and recreational drug use (cocaine), who was sent into the Emergency Department by Dr. Chairez for evaluation of possible withdrawal. As per Dr. Chairez, the patient he was noted to be clammy and diaphoretic and had a brief episode loss of consciousness. Rapid Response was activated. Vitals at that time included a blood pressure of 86/54, pulse rate of 90 bpm, oxygen saturation of 94% on room air and he was given 4L/min of nasal cannula O2 and 0.8 mg of Narcan and was sent here. Vitals upon ER arrival were a temperature of 97.8 (orally), a pulse of 78 bpm, a blood pressure of 114/82 and an oxygen saturation of 98%. As per patient, he has been drinking 2 pints of Vodka and 3-4 ounces of Malt liquor everyday for the past 2 months. He attributes his drinking to being laid off from work 2-3 months ago. His last drink was this morning, at approximately 07:00 AM. He checked himself in to [facility] at approximately 11:00 AM. Patient states that he has never been in withdrawal before. He reports symptoms of shaking and weakness. No chest pain, cough, shortness of breath,. nausea and vomiting. <Marisol Sadler - Last Filed: 05/25/17 08:06> - General Stated Complaint: ALCOHOL WITHDRAWAL Time Seen by Provider: 05/24/17 13:08 Past History - Past Medical History Anemia: No Asthma: No Cancer: No Cardiac Disorders: No CVA: No COPD: No CHF: No Dementia: No Diabetes: No GI Disorders: No Disorders: No HTN: No Hypercholesterolemia: No Kidney Stones: No Liver Disease: No Suicide Attempt (Hx): No Seizures: Yes (alcohol related-last episode was in 2014) Thyroid Disease: No - Surgical History Abdominal Surgery: No Appendectomy: No Cardiac Surgery: No Cholecystectomy: No Lung Surgery: No Neurologic Surgery: No Orthopedic Surgery: No - Reproductive History Testicular Surgery: No - Psycho/Social/Smoking Cessation Hx Anxiety: Yes Suicidal Ideation: No Smoking History: Current every day smoker Have you smoked in the past 12 months: Yes Number of Cigarettes Smoked Daily: 2 Cigars Per Day: 0 'Breaking Loose' booklet given: 03/04/17 Hx Alcohol Use: Yes Drug/Substance Use Hx: Yes Substance Use Type: Alcohol, Cocaine Hx Substance Use Treatment: Yes <Ruben Silva - Last Filed: 05/24/17 14:39> <Marisol Sadler - Last Filed: 05/25/17 08:06> - Past Medical History Allergies/Adverse Reactions: Allergies Allergy/AdvReac Type Severity Reaction Status Date / Time No Known Allergies Allergy Verified 05/24/17 13:10 Home Medications: Ambulatory Orders Citalopram Hydrobromide [Celexa -] 20 mg PO DAILY 05/24/17 Citalopram Hydrobromide [Celexa -] 20 mg PO DAILY #30 tablet 05/25/17 Review of Systems - Review of Systems Able to Perform ROS?: Yes Comments:: 05/24/17 13:19 GENERAL/CONSTITUTIONAL: Yes: Generalized body tremors. Weakness. No fever or chills. HEAD, EYES, EARS, NOSE AND THROAT: No change in vision. No ear pain or discharge. No sore throat. CARDIOVASCULAR: No chest pain or shortness of breath. RESPIRATORY: No cough, wheezing, or hemoptysis. GASTROINTESTINAL: No nausea, vomiting, diarrhea or constipation. GENITOURINARY: No dysuria, frequency, or change in urination. MUSCULOSKELETAL: No joint or muscle swelling or pain. No neck or back pain. SKIN: No rash NEUROLOGIC: No headache, vertigo, loss of consciousness, or change in strength/ sensation. ENDOCRINE: No increased thirst. No abnormal weight change. HEMATOLOGIC/LYMPHATIC: No anemia, easy bleeding, or history of blood clots. ALLERGIC/IMMUNOLOGIC: No hives or skin allergy. <Marisol Sadler - Last Filed: 05/25/17 08:06> *Physical Exam - Vital Signs Last Vital Signs Temp Pulse Resp BP Pulse Ox 97.8 F 78 18 114/82 98 05/24/17 13:10 05/24/17 13:10 05/24/17 13:10 05/24/17 13:10 05/24/17 13:10 - Physical Exam Comments: 05/24/17 13:19 GENERAL: Awake, alert, and fully oriented. Generalized body tremors. HEAD: No signs of trauma EYES: PERRLA, EOMI, sclera anicteric, conjunctiva clear ENT: Auricles normal inspection, hearing grossly normal, nares patent, oropharynx clear without exudates. Moist mucosa NECK: Normal ROM, supple, no lymphadenopathy, JVD, or masses LUNGS: Breath sounds equal, clear to auscultation bilaterally. No wheezes, and no crackles HEART: Regular rate and rhythm, normal S1 and S2, no murmurs, rubs or gallops ABDOMEN: Soft, nontender, normoactive bowel sounds. No guarding, no rebound. No masses EXTREMITIES: Normal range of motion, no edema. No clubbing or cyanosis. No cords, erythema, or tenderness NEUROLOGICAL: Cranial nerves II through XII grossly intact. Normal speech. <Marisol Sadler - Last Filed: 05/25/17 08:06> Heart Score/ECG Review #1 05/24/17 13:34 Reviewed and interpreted by Dr. Ruben Silva IMPRESSION: Normal sinus rhythm with a ventricular rate of 80 bpm. Normal axis. Normal intervals. Normal EKG. <Marisol Sadler - Last Filed: 05/25/17 08:06> ED Treatment Course - LABORATORY CBC & Chemistry Diagram: 05/24/17 14:00 05/24/17 13:40 <Ruben Silva - Last Filed: 05/24/17 14:39> - LABORATORY CBC & Chemistry Diagram: 05/24/17 14:00 05/24/17 13:40 - RADIOLOGY Radiograph Interpretation: 05/24/17 13:37 EXAM: RAD/CHEST X-RAY PORTABLE Interpreted by Dr. Vickey Morales Impression: A single view of the chest reveals clear lungs, normal mediastinum and sharp angles. The bones and soft tissues are intact. There are no prior studies for comparison. <Marisol Sadler - Last Filed: 05/25/17 08:06> Medical Decision Making - Medical Decision Making 05/24/17 13:19 The patient is a 52-year-old man with a significant past medical history of depression, EtOH and recreational drug use (cocaine), who was sent into the Emergency Department by Dr. Chairez for valuation of possible withdrawal. As per Dr. Chairez, the patient had a brief episode of syncope and he was noted to be clammy and diaphoretic. Rapid Response was activated. Vitals at that time included a blood pressure of 86/54, pulse rate of 90 bpm, oxygen saturation of 94% on room air and he was given 4L/min of nasal cannula O2 and 0.8 mg of Narcan and was sent here. Vitals upon ER arrival were a temperature of 97.8 (orally), a pulse of 78 bpm, a blood pressure of 114/82 and an oxygen saturation of 98%. As per patient, he has been drinking 2 pints of Vodka and 3-4 ounces of Malt liquor everyday for the past 2 months. He attributes his drinking to being laid off from work 2-3 months ago. His last drink was this morning, at approximately 07:00 AM. He checked himself in to [facility] at approximately 11:00 AM. Patient states that he has never been in withdrawal before. He reports symptoms of shaking and weakness. No chest pain, cough, shortness of breath,. nausea and vomiting. IMPRESSION: Alcohol Withdrawal PLAN: LABS, EKG, Fluids. Reassess. <Marisol Sadler - Last Filed: 05/25/17 08:06> *DC/Admit/Observation/Transfer - Discharge Dispostion Admit: No - Attestations Physician Attestion: 05/24/17 13:08 I, Dr. Ruben Silva, attest that this document has been prepared under my direction and personally reviewed by me in its entirety. I further attest, that it accurately reflects all work, treatment, procedures and medical decision -making performed by me. <Ruben Silva - Last Filed: 05/24/17 14:39> - Attestations Scribe Attestion: 05/24/17 13:20 Documentation prepared by Marisol Sadler, acting as director of graduate medical education for Ruben Silva DO. <Marisol Sadler - Last Filed: 05/25/17 08:06> Diagnosis at time of Disposition: Alcohol withdrawal Qualifiers: Complication of substance-induced condition: uncomplicated Qualified Code(s): F10.230 - Alcohol dependence with withdrawal, uncomplicated - Discharge Dispostion Disposition: HOME Condition at time of disposition: Improved - Referrals Referrals: Watson Luu MD [Primary Care Provider] - - Patient Instructions Printed Discharge Instructions: DI for Alcohol Abuse Additional Instructions: Go Directly to [facility] for Admission Print Language: MACEDONIAN
[2017-05-24 13:16] VITALS: PULSE 78; BMI 26.6
[2017-05-24] MEDS ORDERED: FOLIC ACID INJECTION - 1 MG, THIAMINE HCL 100 MG, MULTIVIT INJECTION ADULT 10 ML in SOD... IVPB ONE (13:19)
[2017-05-24] MEDS ORDERED: SODIUM CHLORIDE 1,000 ML IV STA (13:19)
[2017-05-24] MEDS ORDERED: LORazepam 1 MG TABLET PO ONE (13:27)
[2017-05-24] MEDS ORDERED: LORazepam 0.5 MG TABLET ONE (13:39)
[2017-05-24 14:12] LABS: INR 1.04 (0.82-1.09); PROTHROMBIN TIME (PATIENT) 11.4 SEC (9.98-11.88)
[2017-05-24 14:25] LABS: ALBUMIN 3.1 g/dl (3.4-5.0); ANION GAP 14 (8-16); BILIRUBIN,TOTAL 0.3 mg/dL (0.2-1.0); BLOOD UREA NITROGEN 17 mg/dL (7-18); CALCIUM 8.4 mg/dL (8.5-10.1); CHLORIDE 105 mmol/L (98-107); CO2 19 mmol/L (21-32); CREATININE 1.3 mg/dL (0.7-1.3); GLUCOSE,RANDOM 139 mg/dL (74-106); POTASSIUM 3.7 mmol/L (3.5-5.1); SGOT/AST 32 U/L (15-37); SGPT/ALT 45 U/L (12-78); SODIUM 138 mmol/L (136-145); TOT PROT 6.1 g/dl (6.4-8.2)
[2017-05-24 14:25] LABS: BASO % 0.5 % (0-2.0); EOS % 1.2 % (0-4.5); HEMATOCRIT 38.9 % (35.4-49); HEMOGLOBIN 13.2 GM/dL (11.7-16.9); LYMPH % 22.7 % (8-40); MEAN CELL VOLUME 96.9 fl (80-96); MEAN PLT VOLUME 8.2 fl (7.5-11.1); MONO % 5.9 % (3.8-10.2); NEUT % 69.7 % (42.8-82.8); PLATELET COUNT 256 K/MM3 (134-434); RBC 4.02 M/mm3 (4.00-5.60); RDW 12.8 % (11.9-15.9); WHITE BLOOD COUNT 6.7 K/mm3 (4.0-10.0)
[2017-05-24 14:27] LABS: ALK PHOS 54 U/L (45-117); CREATINE PHOSPHOKINASE 72 IU/L (39-308)
[2017-05-24 14:42] VITALS: BP 112/78; TEMP 97.4
--- NOTE | 2017-05-25 12:39 | EKG ---
Test Reason : Blood Pressure : / mmHG Vent. Rate : 080 BPM Atrial Rate : 080 BPM P-R Int : 142 ms QRS Dur : 092 ms QT Int : 398 ms P-R-T Axes : 047 014 007 degrees QTc Int : 459 ms NORMAL SINUS RHYTHM NORMAL ECG WHEN COMPARED WITH ECG OF 04-MAR-2017 13:46, NO SIGNIFICANT CHANGE WAS FOUND Confirmed by MOIZ FERNANDEZ MD ([id number]) on 05/25/2017 12:38:54 PM Referred By: Confirmed By:MOIZ FERNANDEZ MD
== END 2017-05-24 14:42 | disposition home or self-care (01) ==
LOC: JER 13:02
PROC: 3E033GC Introduction of Other Therapeutic Substance into Peripheral Vein, Percutaneous Approach (ICD-10-PCS; principal; 2017-05-24)
DX: F10.230 Alcohol dependence with withdrawal, uncomplicated (principal)
CPT/HCPCS: 36415; 71010-TC; 80053; 82550; 84484; 85025; 85610; 93005; 93010; 96365; 99283-25; J7030

== ENCOUNTER 2017-06-27 09:55 | Inpatient (IN) | payer OTHER ==
[2017-06-27 10:12] VITALS: BMI 25.8
--- NOTE | 2017-06-27 11:42 | HP ---
CIWA Score - CIWA Score Nausea/Vomitin-Mild Nausea/No Vomiting Muscle Tremors: 4-Moderate,w/Arms Extend Anxiety: 4-Mod. Anxious/Guarded Agitation: 7-Pacing/Thrashing Paroxysmal Sweats: 1-Minimal Palms Moist Orientation: 1-Uncertain about Date Tacttile Disturbances: 1-Very Mild Itch/Numbness Auditory Disturbances: 1-Very Mild Visual Disturbances: 1-Very Mild Sensitivity Headache: 1-Very Mild CIWA-Ar Total Score: 22 Admission ROS BHS - HPI Chief Complaint: I want to stop drinking Allergies/Adverse Reactions: Allergies Allergy/AdvReac Type Severity Reaction Status Date / Time No Known Allergies Allergy Verified 06/27/17 12:39 History of Present Illness: 52 yo gentleman here for detox from alcohol - last here in May 2017- did not go to rehab and relapsed - interested in rehab following detox now. History of alcohol related seizure two years ago Exam Limitations: Clinical Condition - Ebola screening Have you traveled outside of the country in the last 21 days: No Have you had contact with anyone from an Ebola affected area: No Have you been sick,other than usual withdrawal symptoms: No Do you have a fever: No - Review of Systems Constitutional: Loss of Appetite, Malaise, Changes in sleep EENT: reports: Blurred Vision Respiratory: reports: No Symptoms reported Cardiac: reports: No Symptoms Reported GI: reports: Nausea, Poor Appetite, Indigestion : reports: Frequency Musculoskeletal: reports: Back Pain, Joint Pain, Other (left heel pain) Integumentary: reports: Rash (bentley area) Neuro: reports: Headache, Tremors Endocrine: reports: No Symptoms Reported Hematology: reports: No Symptoms Reported Psychiatric: reports: Judgement Intact, Mood/Affect Appropiate, Anxious Other Systems: Reviewed and Negative Patient History - Patient Medical History Hx Anemia: No Hx Asthma: No Hx Chronic Obstructive Pulmonary Disease (COPD): No Hx Cancer: No Hx Cardiac Disorders: No Hx Congestive Heart Failure: No Hx Hypertension: No Hx Hypercholesterolemia: No Hx Pacemaker: No HX Cerebrovascular Accident: No Hx Seizures: Yes (alcohol related-last episode was in 2014) Hx Dementia: No Hx Diabetes: No Hx Gastrointestinal Disorders: No Hx Liver Disease: No Hx Genitourinary Disorders: No Hx Sexually Transmitted Disorders: No Hx Renal Disease (ESRD): No Hx Thyroid Disease: No Hx Human Immunodeficiency Virus (HIV): No (last negative 2015) Hx Hepatitis C: No Hx Depression: Yes (insomnia, on meds) Hx Suicide Attempt: No Hx Bipolar Disorder: No Hx Schizophrenia: No - Patient Surgical History Past Surgical History: No Hx Neurologic Surgery: No Hx Cataract Extraction: No Hx Cardiac Surgery: No Hx Lung Surgery: No Hx Breast Surgery: No Hx Breast Biopsy: No Hx Abdominal Surgery: No Hx Appendectomy: No Hx Cholecystectomy: No Hx Genitourinary Surgery: No Hx Section: No Hx Orthopedic Surgery: No Hx Hysterectomy: No Anesthesia Reaction: No - PPD History Previous Implant?: Yes Documented Results: Negative w/proof Date: 06/19/16 Results: 0 mm PPD to be Administered?: Yes - Reproductive History Patient is a Female of Child Bearing Age (11 -55 yrs old): No (male) - Smoking Cessation Smoking history: Current every day smoker Have you smoked in the past 12 months: Yes Aproximately how many cigarettes per day: 2 Cigars Per Day: 0 Hx Chewing Tobacco Use: No Initiated information on smoking cessation: Yes 'Breaking Loose' booklet given: 06/27/17 (give on floor) - Substance & Tx. History Hx Alcohol Use: Yes Hx Substance Use: Yes Substance Use Type: Alcohol, Cocaine Hx Substance Use Treatment: Yes (detox, rehab) - Substances Abused Alcohol Route: Oral Frequency: Daily Amount used: four 40oz beer; 2 pints Age of first use: 23 Date of Last Use: 06/27/17 Cocaine Route: Smoking Frequency: 3-6 times per week Amount used: $100 Age of first use: 30 Date of Last Use: 06/24/17 Family Disease History - Family Disease History Family Disease History: Heart Disease: Mother ( 2nd cva), Other: Father (alive, healthy), Mother, Brother (one - living - healthy), Sister (one - living - healthy) Admission Physical Exam BHS - Vital Signs Vital Signs: Vital Signs - 24 hr 06/27/17 10:09 Temperature 99.0 F Pulse Rate 93 H Respiratory 18 Rate Blood Pressure 137/98 - Physical General Appearance: Yes: Nourished, Appropriately Dressed, Moderate Distress, Tremorous, Anxious HEENTM: Yes: Hearing grossly Normal, Normocephalic, Normal Voice, Pharynx Normal Respiratory: Yes: Normal Breath Sounds, No Respiratory Distress Neck: Yes: No masses,lesions,Nodules, Supple Breast: Yes: Breast Exam Deferred Cardiology: Yes: Regular Rhythm, Regular Rate Abdominal: Yes: Soft Genitourinary: Yes: Frequency Back: Yes: Normal Inspection Musculoskeletal: Yes: Back pain, Other (left heel pain (chronic)) Extremities: Yes: Normal Inspection Neurological: Yes: Alert, Normal Mood/Affect, Normal Response Integumentary: Yes: Warm, Rash (erythematous papular rash chin/cheeks) Lymphatic: Yes: Within Normal Limits - Diagnostic (1) Alcohol dependence with uncomplicated withdrawal Current Visit: Yes Status: Chronic (2) Cocaine dependence Current Visit: Yes Status: Chronic Qualifiers: Substance use status: uncomplicated Qualified Code(s): F14.20 - Cocaine dependence, uncomplicated (3) Nicotine dependence Current Visit: Yes Status: Chronic Qualifiers: Nicotine product type: cigarettes Substance use status: uncomplicated Qualified Code(s): F17.210 - Nicotine dependence, cigarettes, uncomplicated (4) Chronic bilateral low back pain Current Visit: Yes Status: Chronic Qualifiers: Sciatica presence: unspecified whether sciatica present Qualified Code(s): M54.5 - Low back pain; G89.29 - Other chronic pain (5) History of seizure Current Visit: Yes Status: Chronic (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
[2017-06-27] MEDS ORDERED: P-EPHED 60MG/TRIPROLIDI 2.5MG TABLET PO PRN (11:49)
[2017-06-27] MEDS ORDERED: MAG HYDROX/AL HYDROX/SIMETH 30 ML UNIT-DOSE CUP PO PRN (11:49)
[2017-06-27] MEDS ORDERED: NICOTINE POLACRILEX 2 MG GUM BUC PRN (11:49)
[2017-06-27] MEDS ORDERED: ACETAMINOPHEN 325 MG TABLET (FP) PO PRN (11:49)
[2017-06-27] MEDS ORDERED: MENTHOL/PHENOL 1 EACH UD MM PRN (11:49)
[2017-06-27] MEDS ORDERED: IBUPROFEN 400 MG TABLET (FP) PO PRN (11:49)
[2017-06-27] MEDS ORDERED: guaiFENesin/D-METHORPHAN HB 10 ML UNIT-DOSE CUPS PO PRN (11:49)
[2017-06-27] MEDS ORDERED: MAGNESIUM CITRATE 300 ML BOTTLE PO PRN (11:49)
[2017-06-27] MEDS ORDERED: LOPERAMIDE HCL 2 MG CAPSULE PO PRN (11:49)
[2017-06-27] MEDS ORDERED: diphenhydrAMINE HCL 50 MG CAPSULE PO PRN (11:49)
[2017-06-27] MEDS ORDERED: chlordiazePOXIDE HCL 25 MG CAPSULE PO ONE (14:00)
[2017-06-27] MEDS: HYDROCORTISONE 1% TOPICAL OINT 30 GM TUBE TP SCH (14:55)
[2017-06-27] MEDS: chlordiazePOXIDE HCL 25 MG CAPSULE PO SCH ×2 (16:57→22:16)
--- NOTE | 2017-06-27 17:08 | CONSULT ---
[facility] Psychiatric Consult - Data Date of interview: 06/27/17 Admission source: [facility] Identifying data: Readmission to [facility] for this 52 y/o male seeking detox treatment on for alcohol and cocaine dependence.Patient is single without children,domiciled,unemployed and supported on food stamps. Substance Abuse History: Discussed with patient.Mr Serna confirms this report. Smoking Cessation. Smoking history: Current every day smoker. Have you smoked in the past 12 months: Yes. Aproximately how many cigarettes per day: 2. Cigars Per Day: 0. Hx Chewing Tobacco Use: No. Initiated information on smoking cessation: Yes. 'Breaking Loose' booklet given: 06/27/17 (give on floor ). - Substance & Tx. History. Hx Alcohol Use: Yes. Hx Substance Use: Yes. Substance Use Type: Alcohol, Cocaine. Hx Substance Use Treatment: Yes (detox, rehab). - Substances Abused. Alcohol. Route: Oral. Frequency: Daily. Amount used: four 40oz beer; 2 pints. Age of first use: 23. Date of Last Use: 06/27/17. Cocaine. Route: Smoking. Frequency: 3-6 times per week. Amount used: $100. Age of first use: 30. Date of Last Use: 06/24/17 Medical History: History of syncope,diabetes mellitus,lower back pain, hemorrhoids and withdrawal seizures. Psychiatric History: No history of psychiatric hospitalizations.Questionable adherence to [facility] care.Mr Serna continues to be prescribed celexa 20 mg/day + zolpidem 10 mg/hs.Patient denies history of suicide attempts. Physical/Sexual Abuse/Trauma History: Patient denies. Additional Comment: Urine Drug Screen Results: CRISTIAN-Cocaine, MET-Methamphetamine , BZO-Benzodiazepines.Noted. Mental Status Exam - Mental Status Exam Alert and Oriented to: Time, Place, Person Cognitive Function: Good Patient Appearance: Well Groomed Mood: Nervous, Withdrawn, Anxious Affect: Mood Congruent Patient Behavior: Fatigued, Appropriate, Cooperative Speech Pattern: Clear Voice Loudness: Normal Thought Process: Goal Oriented Thought Disorder: Not Present Hallucinations: Denies Suicidal Ideation: Denies Homicidal Ideation: Denies Insight/Judgement: Poor Sleep: Poorly, Difficulty falling asleep Appetite: Good Muscle strength/Tone: Normal Gait/Station: Normal Psychiatric Findings - Problem List ([place] 1, 2,3) (1) Alcohol dependence with uncomplicated withdrawal Current Visit: Yes Status: Acute (2) Cocaine dependence Current Visit: Yes Status: Acute Qualifiers: Substance use status: uncomplicated Qualified Code(s): F14.20 - Cocaine dependence, uncomplicated (3) Amphetamine abuse Current Visit: Yes Status: Acute (4) Nicotine dependence Current Visit: Yes Status: Acute Qualifiers: Nicotine product type: cigarettes Substance use status: uncomplicated Qualified Code(s): F17.210 - Nicotine dependence, cigarettes, uncomplicated (5) Substance induced mood disorder Current Visit: Yes Status: Acute (6) History of seizure Current Visit: Yes Status: Acute (7) Borderline diabetes mellitus Current Visit: Yes Status: Chronic (8) Hemorrhoids Current Visit: Yes Status: Chronic Qualifiers: Hemorrhoid type: unspecified Qualified Code(s): K64.9 - Unspecified hemorrhoids (9) Chronic bilateral low back pain Current Visit: Yes Status: Chronic Qualifiers: Sciatica presence: unspecified whether sciatica present Qualified Code(s): M54.5 - Low back pain; G89.29 - Other chronic pain (10) Insomnia Current Visit: Yes Status: Acute Qualifiers: Insomnia type: unspecified Qualified Code(s): G47.00 - Insomnia, unspecified - Initial Treatment Plan Initial Treatment Plan: Psychoeducation.Detoxification is under way.Medications : citalopram 20 mg po daily + ambien 10 mg po hs.Side effects/benefits of these drugs are discussed with the patient.He is in agreement with careplan.Observation.
[2017-06-27] MEDS: chlordiazePOXIDE HCL 25 MG CAPSULE PO PRN (19:22)
[2017-06-27] MEDS: THIAMINE HCL 100 MG TABLET (FP) PO SCH (22:16)
[2017-06-27] MEDS: MAGNESIUM HYDROX 2400MG/30ML ORAL SUSPENSION 30 ML CUP PO PRN (22:16)
[2017-06-27] MEDS: ZOLPIDEM TARTRATE 5 MG TABLET PO SCH (22:17)
[2017-06-27 23:23] LABS: URINE APPEARANCE CLOUDY; URINE BLOOD NEGATIVE (NEGATIVE); URINE COLOR AMBER; URINE GLUCOSE (UA) NEGATIVE (NEGATIVE); URINE KETONE TRACE (NEGATIVE); URINE LEUK ESTERASE NEGATIVE (NEGATIVE); URINE NITRITE NEGATIVE (NEGATIVE)
[2017-06-27 23:35] LABS: URINE PROTEIN 1+ (NEGATIVE)
[2017-06-27 23:48] LABS: CALCIUM OXALATE CRYSTALS FEW /hpf (NONE SEEN); URINE HYALINE CAST 44 /lpf; URINE MUCUS MANY; URINE RBC 1 /hpf (0-3); URINE WBC <1 /hpf (3-5)
[2017-06-28] MEDS: chlordiazePOXIDE HCL 25 MG CAPSULE PO SCH ×4 (05:43→22:16)
[2017-06-28] MEDS: HYDROCORTISONE 1% TOPICAL OINT 30 GM TUBE TP SCH (10:17)
[2017-06-28] MEDS: CITALOPRAM HYDROBROMIDE 20 MG TABLET (FP) PO SCH (10:17)
[2017-06-28] MEDS: PRENATAL VITAMINS W/ FOLIC ACID TABLET (FP) PO SCH (10:17)
[2017-06-28 10:28] LABS: MCH 33.7 pg (25.7-33.7); MCHC 35.2 g/dl (32.0-35.9); MEAN CELL VOLUME 95.7 fl (80-96); MEAN PLT VOLUME 9.4 fl (7.5-11.1); PLATELET COUNT 214 K/MM3 (134-434); RDW 13.3 % (11.9-15.9); WHITE BLOOD COUNT 5.6 K/mm3 (4.0-10.0)
[2017-06-28 11:03] LABS: ALBUMIN 2.7 g/dl (3.4-5.0); ANION GAP 7 (8-16); CALCIUM 7.8 mg/dL (8.5-10.1); CO2 27 mmol/L (21-32); CREATININE 1.2 mg/dL (0.7-1.3); GLUCOSE,RANDOM 130 mg/dL (74-106)
[2017-06-28 11:05] LABS: ALK PHOS 61 U/L (45-117); BILIRUBIN,TOTAL 0.7 mg/dL (0.2-1.0); TOT PROT 5.4 g/dl (6.4-8.2)
[2017-06-28 11:07] LABS: SGOT/AST 63 U/L (15-37); SGPT/ALT 73 U/L (12-78)
[2017-06-28] MEDS: chlordiazePOXIDE HCL 25 MG CAPSULE PO PRN ×2 (12:25→19:11)
--- NOTE | 2017-06-28 12:54 | EKG ---
Test Reason : Blood Pressure : / mmHG Vent. Rate : 085 BPM Atrial Rate : 085 BPM P-R Int : 130 ms QRS Dur : 090 ms QT Int : 368 ms P-R-T Axes : 041 000 001 degrees QTc Int : 437 ms NORMAL SINUS RHYTHM MINIMAL VOLTAGE CRITERIA FOR LVH, MAY BE NORMAL VARIANT BORDERLINE ECG WHEN COMPARED WITH ECG OF 24-MAY-2017 16:13, NO SIGNIFICANT CHANGE WAS FOUND Confirmed by INESSA BUSH MD ([id number]) on 06/28/2017 12:54:10 PM Referred By: Confirmed By:INESSA BUSH MD
--- NOTE | 2017-06-28 14:10 | PN ---
S CIWA - CIWA Score Nausea/Vomitin Muscle Tremors: 3 Anxiety: 3 Agitation: 2 Paroxysmal Sweats: 1-Minimal Palms Moist Orientation: 0-Oriented Tacttile Disturbances: 1-Very Mild Itch/Numbness Auditory Disturbances: 1-Very Mild Visual Disturbances: 1-Very Mild Sensitivity Headache: 2-Mild CIWA-Ar Total Score: 17 BHS Progress Note (SOAP) Subjective: ALERT,IRRITABLE,ANXIOUS,INTERRUPTED SLEEP,TREMOR, Objective: 06/28/17 14:06 Vital Signs Temperature 96.1 F L 06/28/17 10:44 Pulse Rate 97 H 06/28/17 10:44 Respiratory Rate 18 06/28/17 10:44 Blood Pressure 136/80 06/28/17 10:44 O2 Sat by Pulse Oximetry (%) EKG NSR, LVH NO CHEST PAIN,NO SOB,NO DIZZINESS Vital Signs Temperature 96.1 F L 06/28/17 10:44 Pulse Rate 97 H 06/28/17 10:44 Respiratory Rate 18 06/28/17 10:44 Blood Pressure 136/80 06/28/17 10:44 O2 Sat by Pulse Oximetry (%) Laboratory Last Values WBC 5.6 K/mm3 (4.0-10.0) 06/28/17 07:45 RBC 4.02 M/mm3 (4.00-5.60) 06/28/17 07:45 Hgb 13.6 GM/dL (11.7-16.9) 06/28/17 07:45 Hct 38.5 % (35.4-49) 06/28/17 07:45 MCV 95.7 fl (80-96) 06/28/17 07:45 MCH 33.7 pg (25.7-33.7) 06/28/17 07:45 MCHC 35.2 g/dl (32.0-35.9) 06/28/17 07:45 RDW 13.3 % (11.9-15.9) 06/28/17 07:45 Plt Count 214 K/MM3 (134-434) 06/28/17 07:45 MPV 9.4 fl (7.5-11.1) D 06/28/17 07:45 Sodium 138 mmol/L (136-145) 06/28/17 07:45 Potassium 3.7 mmol/L (3.5-5.1) 06/28/17 07:45 Chloride 104 mmol/L (98-107) 06/28/17 07:45 Carbon Dioxide 27 mmol/L (21-32) 06/28/17 07:45 Anion Gap 7 (8-16) L 06/28/17 07:45 BUN 23 mg/dL (7-18) H D 06/28/17 07:45 Creatinine 1.2 mg/dL (0.7-1.3) 06/28/17 07:45 Creat Clearance w eGFR > 60 (>60) 06/28/17 07:45 Random Glucose 130 mg/dL (74-106) H D 06/28/17 07:45 Calcium 7.8 mg/dL (8.5-10.1) L 06/28/17 07:45 Total Bilirubin 0.7 mg/dL (0.2-1.0) D 06/28/17 07:45 AST 63 U/L (15-37) H D 06/28/17 07:45 ALT 73 U/L (12-78) D 06/28/17 07:45 Alkaline Phosphatase 61 U/L (45-117) 06/28/17 07:45 Total Protein 5.4 g/dl (6.4-8.2) L 06/28/17 07:45 Albumin 2.7 g/dl (3.4-5.0) L 06/28/17 07:45 Urine Color Hannah 06/27/17 23:10 Urine Appearance Cloudy 06/27/17 23:10 Urine pH 5.0 (5.0-8.0) 06/27/17 23:10 Ur Specific [place] >= 1.030 (1.005-1.025) H 06/27/17 23:10 Urine Protein 1+ (NEGATIVE) H 06/27/17 23:10 Urine Glucose (UA) Negative (NEGATIVE) 06/27/17 23:10 Urine Ketones Trace (NEGATIVE) H 06/27/17 23:10 Urine Blood Negative (NEGATIVE) 06/27/17 23:10 Urine Nitrite Negative (NEGATIVE) 06/27/17 23:10 Urine Bilirubin 4.0 (NEGATIVE) 06/27/17 23:10 Urine Urobilinogen 2.0 mg/dL (0.2-1.0) 06/27/17 23:10 Ur Leukocyte Esterase Negative (NEGATIVE) 06/27/17 23:10 Urine RBC 1 /hpf (0-3) 06/27/17 23:10 Urine WBC <1 /hpf (3-5) 06/27/17 23:10 Calcium Oxalate Crystal Few /hpf (NONE SEEN) 06/27/17 23:10 Hyaline Casts 44 /lpf 06/27/17 23:10 Urine Mucus Many 06/27/17 23:10 RPR Titer Nonreactive (NONREACTIVE) 06/28/17 07:45 Assessment: 06/28/17 14:08 WITHDRAWAL SYMPTOM Plan: CONTINUE DETOX,FASTING GLUCOSE IN AM,CMP IN AM
[2017-06-28] MEDS: ZOLPIDEM TARTRATE 5 MG TABLET PO SCH (22:16)
[2017-06-28] MEDS: THIAMINE HCL 100 MG TABLET (FP) PO SCH (22:16)
[2017-06-29] MEDS: chlordiazePOXIDE HCL 25 MG CAPSULE PO PRN ×3 (00:38→19:13)
[2017-06-29] MEDS: chlordiazePOXIDE HCL 25 MG CAPSULE PO SCH ×2 (05:36→10:07)
[2017-06-29] MEDS: CITALOPRAM HYDROBROMIDE 20 MG TABLET (FP) PO SCH (10:06)
[2017-06-29] MEDS: PRENATAL VITAMINS W/ FOLIC ACID TABLET (FP) PO SCH (10:07)
[2017-06-29] MEDS: HYDROCORTISONE 1% TOPICAL OINT 30 GM TUBE TP SCH (10:09)
[2017-06-29] MEDS: hydrOXYzine PAMOATE 50 MG CAPSULE (FP) PO PRN (10:10)
[2017-06-29 10:37] LABS: ALBUMIN 2.9 g/dl (3.4-5.0); ALK PHOS 60 U/L (45-117); ANION GAP 9 (8-16); BILIRUBIN,TOTAL 0.5 mg/dL (0.2-1.0); CALCIUM 8.4 mg/dL (8.5-10.1); CHOLESTEROL 284 mg/dL (50-200); CO2 26 mmol/L (21-32); CREATININE 1.3 mg/dL (0.7-1.3); GLUCOSE,FASTING 97 mg/dL (70-105); GLUCOSE,RANDOM 97 mg/dL (74-106); LDL CHOLESTEROL (ONLY SJRH) 73 mg/dL (5-100); SGOT/AST 51 U/L (15-37); SGPT/ALT 62 U/L (12-78); TOT PROT 5.9 g/dl (6.4-8.2)
--- NOTE | 2017-06-29 11:22 | PN ---
S CIWA - CIWA Score Nausea/Vomitin-No Nausea/No Vomiting Muscle Tremors: 4-Moderate,w/Arms Extend Anxiety: 4-Mod. Anxious/Guarded Agitation: 3 Paroxysmal Sweats: 3 Orientation: 0-Oriented Tacttile Disturbances: 0-None Auditory Disturbances: 0-None Visual Disturbances: 0-None Headache: 0-None Present CIWA-Ar Total Score: 14 BHS Progress Note (SOAP) Subjective: sweats anxiety interrupted sleep shakes Objective: 06/29/17 11:20 Vital Signs Temperature 95.9 F L 06/29/17 10:42 Pulse Rate 85 06/29/17 10:42 Respiratory Rate 18 06/29/17 10:42 Blood Pressure 135/86 06/29/17 10:42 O2 Sat by Pulse Oximetry (%) Laboratory Tests 06/27/17 06/28/17 06/28/17 23:10 07:45 07:45 WBC 5.6 RBC 4.02 Hgb 13.6 Hct 38.5 MCV 95.7 MCH 33.7 MCHC 35.2 RDW 13.3 Plt Count 214 MPV 9.4 D Sodium 138 Potassium 3.7 Chloride 104 Carbon Dioxide 27 Anion Gap 7 L BUN 23 H D Creatinine 1.2 Creat Clearance w eGFR > 60 Random Glucose 130 H D Fasting Glucose Calcium 7.8 L Total Bilirubin 0.7 D AST 63 H D ALT 73 D Alkaline Phosphatase 61 Total Protein 5.4 L Albumin 2.7 L Triglycerides Cholesterol Total LDL Cholesterol HDL Cholesterol Urine Color Hannah Urine Appearance Cloudy Urine pH 5.0 Ur Specific [place] >= 1.030 H Urine Protein 1+ H Urine Glucose (UA) Negative Urine Ketones Trace H Urine Blood Negative Urine Nitrite Negative Urine Bilirubin 4.0 Urine Urobilinogen 2.0 Ur Leukocyte Esterase Negative Urine RBC 1 Urine WBC <1 Calcium Oxalate Crystal Few Hyaline Casts 44 Urine Mucus Many RPR Titer 06/28/17 06/29/17 07:45 07:00 WBC RBC Hgb Hct MCV MCH MCHC RDW Plt Count MPV Sodium 139 Potassium 3.7 Chloride 104 Carbon Dioxide 26 Anion Gap 9 BUN 15 D Creatinine 1.3 Creat Clearance w eGFR 57.97 Random Glucose 97 D Fasting Glucose 97 Calcium 8.4 L Total Bilirubin 0.5 D AST 51 H ALT 62 Alkaline Phosphatase 60 Total Protein 5.9 L Albumin 2.9 L Triglycerides 890 H Cholesterol 284 H Total LDL Cholesterol 73 HDL Cholesterol 20 L Urine Color Urine Appearance Urine pH Ur Specific [place] Urine Protein Urine Glucose (UA) Urine Ketones Urine Blood Urine Nitrite Urine Bilirubin Urine Urobilinogen Ur Leukocyte Esterase Urine RBC Urine WBC Calcium Oxalate Crystal Hyaline Casts Urine Mucus RPR Titer Nonreactive elevated triglycerides and cholesterol awake/alert ambulating no acute distress Assessment: 06/29/17 11:21 withdrawal sx Plan: continue detox increase fluids nifepidine er 30mg q daily lipitor 10 q hs
[2017-06-29] MEDS: NIFEdipine E.R. 30 MG TABLET (FP) PO SCH (12:26)
--- NOTE | 2017-06-29 14:01 | PN ---
Psychiatric Progress Note Vital Signs: Vital Signs Period Temp Pulse Resp BP Sys/Hernández Pulse Ox Last 24 Hr 95.9 F-98.2 F 77-93 18-18 135-149/70-93 Date of Session: 06/29/17 Chief Complaint:: Insomnia HPI: Patoient reports did not sleep last night at all, currently on Ambien 10mg po qhs Current Medications: Active Medications Generic Name Dose Route Start Last Admin Trade Name Freq PRN Reason Stop Dose Admin Acetaminophen 650 mg 06/27/17 11:49 Tylenol - PO Q4H PRN FEVER OR PAIN Al Hydroxide/Mg Hydroxide 30 ml 06/27/17 11:49 Mylanta Oral Suspension - PO Q6H PRN DYSPEPSIA Atorvastatin Calcium 10 mg 06/29/17 22:00 Lipitor - PO HS NARENDRA Chlordiazepoxide HCl 10 mg 06/30/17 17:00 Librium - PO 07/01/17 11:01 [id number] NARENDRA Chlordiazepoxide HCl 25 mg 06/27/17 11:49 06/29/17 12:06 Librium - PO 06/30/17 11:48 25 mg Q4H PRN Administration WITHDRAWAL(CONT SUBST) Chlordiazepoxide HCl 15 mg 06/29/17 17:00 Librium - PO 06/30/17 11:01 [id number] NARENDRA Citalopram Hydrobromide 20 mg 06/28/17 10:00 06/29/17 10:06 Celexa - PO 20 mg DAILY NARENDRA Administration Diphenhydramine HCl 50 mg 06/27/17 11:49 06/29/17 00:38 Benadryl - PO 50 mg HSMR1 PRN Administration INSOMNIA Eucalyptus/Menthol/Phenol/Sorbitol 1 each 06/27/17 11:49 Cepastat Lozenge - MM Q4H PRN SORE THROAT Guaifenesin 10 ml 06/27/17 11:49 Robitussin Dm - PO Q6H PRN COUGH Hydrocortisone 1 applic 06/27/17 12:00 06/29/17 10:09 Hytone 1% Ointment - TP Not Given DAILY NARENDRA Hydroxyzine Pamoate 50 mg 06/27/17 11:49 06/29/17 10:10 Vistaril - PO 50 mg Q4H PRN Administration AGITATION Ibuprofen 400 mg 06/27/17 11:49 Motrin - PO Q6H PRN SEVERE PAIN Loperamide HCl 4 mg 06/27/17 11:49 Imodium - PO Q6H PRN DIARRHEA Magnesium Citrate 300 ml 06/27/17 11:49 06/28/17 10:18 Citroma - PO 300 ml Q48H PRN Administration CONSTIPATION Magnesium Hydroxide 30 ml 06/27/17 11:49 06/27/17 22:16 Milk Of Magnesia - PO 30 ml DAILY PRN Administration CONSTIPATION Nicotine Polacrilex 2 mg 06/27/17 11:49 Nicorette Gum - BUC Q2H PRN NICOTINE REPLACEMENT RX Nifedipine 30 mg 06/29/17 12:30 06/29/17 12:26 Procardia Xl - PO 30 mg DAILY NARENDRA Administration Multivit/Folic Acid/Iron 1 tab 06/28/17 10:00 06/29/17 10:07 Vitamins (Sjr) - PO 1 tab DAILY NARENDRA Administration Pseudoephedrine/Triprolidine 1 combo 06/27/17 11:49 Actifed - PO TID PRN NASAL CONGESTION Thiamine HCl 100 mg 06/27/17 22:00 06/28/17 22:16 Vitamin B1 - PO 100 mg HS NARENDRA Administration Zolpidem Tartrate 10 mg 06/27/17 22:00 06/28/17 22:16 Ambien - PO 10 mg HS NARENDRA Administration Medication(s) Change(s): Seroquel 100mg po qhs Mental Status Exam - Mental Status Exam Alert and Oriented to: Time, Place, Person Cognitive Function: Fair Patient Appearance: Well Groomed Mood: Anxious Affect: Mood Congruent Patient Behavior: Cooperative Speech Pattern: Appropriate Voice Loudness: Normal Thought Process: Goal Oriented Thought Disorder: Being Controlled Hallucinations: Denies Suicidal Ideation: Denies Homicidal Ideation: Denies Insight/Judgement: Fair Sleep: Difficulty falling asleep Appetite: Fair Muscle strength/Tone: Mild Hypotonicity Gait/Station: Normal Additional Comments: Seroquel 100mg po qhs Psychiatric Treatment Plan - Problem List (1) Alcohol dependence with uncomplicated withdrawal Current Visit: Yes (2) Amphetamine abuse Current Visit: Yes (3) Cocaine dependence Current Visit: Yes Qualifiers: Substance use status: uncomplicated Qualified Code(s): F14.20 - Cocaine dependence, uncomplicated (4) Nicotine dependence Current Visit: Yes Qualifiers: Nicotine product type: cigarettes Substance use status: uncomplicated Qualified Code(s): F17.210 - Nicotine dependence, cigarettes, uncomplicated (5) Substance induced mood disorder Current Visit: Yes Initial treatment plan: Seroquel 100mg po qhs
[2017-06-29] MEDS: chlordiazePOXIDE 5 MG CAPSULE PO SCH ×2 (17:17→22:26)
[2017-06-29] MEDS ORDERED: ATORVASTATIN CA 10 MG TABLET (FP) PO SCH (22:00)
[2017-06-29] MEDS: QUEtiapine FUMARATE 100 MG TABLET (FP) PO SCH (22:26)
[2017-06-29] MEDS: MAGNESIUM HYDROX 2400MG/30ML ORAL SUSPENSION 30 ML CUP PO PRN (22:26)
[2017-06-29] MEDS: THIAMINE HCL 100 MG TABLET (FP) PO SCH (22:26)
[2017-06-29] MEDS: ZOLPIDEM TARTRATE 5 MG TABLET PO SCH (22:26)
[2017-06-30] MEDS: chlordiazePOXIDE 5 MG CAPSULE PO SCH ×2 (05:40→10:15)
[2017-06-30] MEDS ORDERED: ATORVASTATIN CA 20 MG TABLET (FP) PO SCH (08:42)
--- NOTE | 2017-06-30 08:45 | PN ---
BHS Progress Note (SOAP) Subjective: Sweating,interrupted sleep,restless Objective: 06/30/17 08:39 Vital Signs - 8 hr 06/30/17 06/30/17 03:30 06:00 Temperature 96.9 F L Pulse Rate 67 Respiratory 18 18 Rate Blood Pressure 123/73 Laboratory Last Values WBC 5.6 K/mm3 (4.0-10.0) 06/28/17 07:45 RBC 4.02 M/mm3 (4.00-5.60) 06/28/17 07:45 Hgb 13.6 GM/dL (11.7-16.9) 06/28/17 07:45 Hct 38.5 % (35.4-49) 06/28/17 07:45 MCV 95.7 fl (80-96) 06/28/17 07:45 MCH 33.7 pg (25.7-33.7) 06/28/17 07:45 MCHC 35.2 g/dl (32.0-35.9) 06/28/17 07:45 RDW 13.3 % (11.9-15.9) 06/28/17 07:45 Plt Count 214 K/MM3 (134-434) 06/28/17 07:45 MPV 9.4 fl (7.5-11.1) D 06/28/17 07:45 Sodium 139 mmol/L (136-145) 06/29/17 07:00 Potassium 3.7 mmol/L (3.5-5.1) 06/29/17 07:00 Chloride 104 mmol/L (98-107) 06/29/17 07:00 Carbon Dioxide 26 mmol/L (21-32) 06/29/17 07:00 Anion Gap 9 (8-16) 06/29/17 07:00 BUN 15 mg/dL (7-18) D 06/29/17 07:00 Creatinine 1.3 mg/dL (0.7-1.3) 06/29/17 07:00 Creat Clearance w eGFR 57.97 (>60) 06/29/17 07:00 POC Glucometer 97 UNITS (()) 06/30/17 05:39 Random Glucose 97 mg/dL (74-106) D 06/29/17 07:00 Fasting Glucose 97 mg/dL (70-105) 06/29/17 07:00 Calcium 8.4 mg/dL (8.5-10.1) L 06/29/17 07:00 Total Bilirubin 0.5 mg/dL (0.2-1.0) D 06/29/17 07:00 AST 51 U/L (15-37) H 06/29/17 07:00 ALT 62 U/L (12-78) 06/29/17 07:00 Alkaline Phosphatase 60 U/L (45-117) 06/29/17 07:00 Total Protein 5.9 g/dl (6.4-8.2) L 06/29/17 07:00 Albumin 2.9 g/dl (3.4-5.0) L 06/29/17 07:00 Triglycerides 890 mg/dL (35-160) H 06/29/17 07:00 Cholesterol 284 mg/dL (50-200) H 06/29/17 07:00 Total LDL Cholesterol 73 mg/dL (5-100) 06/29/17 07:00 HDL Cholesterol 20 mg/dL (40-60) L 06/29/17 07:00 Urine Color Hannah 06/27/17 23:10 Urine Appearance Cloudy 06/27/17 23:10 Urine pH 5.0 (5.0-8.0) 06/27/17 23:10 Ur Specific [place] >= 1.030 (1.005-1.025) H 06/27/17 23:10 Urine Protein 1+ (NEGATIVE) H 06/27/17 23:10 Urine Glucose (UA) Negative (NEGATIVE) 06/27/17 23:10 Urine Ketones Trace (NEGATIVE) H 06/27/17 23:10 Urine Blood Negative (NEGATIVE) 06/27/17 23:10 Urine Nitrite Negative (NEGATIVE) 06/27/17 23:10 Urine Bilirubin 4.0 (NEGATIVE) 06/27/17 23:10 Urine Urobilinogen 2.0 mg/dL (0.2-1.0) 06/27/17 23:10 Ur Leukocyte Esterase Negative (NEGATIVE) 06/27/17 23:10 Urine RBC 1 /hpf (0-3) 06/27/17 23:10 Urine WBC <1 /hpf (3-5) 06/27/17 23:10 Calcium Oxalate Crystal Few /hpf (NONE SEEN) 06/27/17 23:10 Hyaline Casts 44 /lpf 06/27/17 23:10 Urine Mucus Many 06/27/17 23:10 RPR Titer Nonreactive (NONREACTIVE) 06/28/17 07:45 labs noted, I discuss result of lipid profile with pt., we increased lipitor and printed a copy of labs for him to give his doctor. Assessment: 06/30/17 08:41 Withdrawal sx. Hyperlipidemia Plan: Continue detox Lipitor 20mg hs
[2017-06-30] MEDS: PRENATAL VITAMINS W/ FOLIC ACID TABLET (FP) PO SCH (10:12)
[2017-06-30] MEDS: HYDROCORTISONE 1% TOPICAL OINT 30 GM TUBE TP SCH (10:12)
[2017-06-30] MEDS: CITALOPRAM HYDROBROMIDE 20 MG TABLET (FP) PO SCH (10:12)
[2017-06-30] MEDS: NIFEdipine E.R. 30 MG TABLET (FP) PO SCH (10:12)
[2017-06-30] MEDS: chlordiazePOXIDE HCL 25 MG CAPSULE PO PRN (10:15)
[2017-06-30] MEDS: chlordiazePOXIDE HCL 10 MG CAPSULE PO SCH ×2 (17:20→22:33)
[2017-06-30] MEDS: hydrOXYzine PAMOATE 50 MG CAPSULE (FP) PO PRN (20:12)
[2017-06-30] MEDS: ZOLPIDEM TARTRATE 5 MG TABLET PO SCH (22:32)
[2017-06-30] MEDS: QUEtiapine FUMARATE 100 MG TABLET (FP) PO SCH (22:32)
[2017-06-30] MEDS: THIAMINE HCL 100 MG TABLET (FP) PO SCH (22:33)
[2017-06-30] MEDS: MAGNESIUM HYDROX 2400MG/30ML ORAL SUSPENSION 30 ML CUP PO PRN (22:40)
[2017-07-01] MEDS: chlordiazePOXIDE HCL 10 MG CAPSULE PO SCH (05:05)
--- NOTE | 2017-07-01 08:37 | DS ---
[facility] Detox Discharge Summary Admission Date: 06/27/17 Discharge Date: 07/01/17 - History Present History: Alcohol Dependence, Cocaine Dependence - Physical Exam Results Vital Signs: Vital Signs Temperature 99.1 F 06/30/17 21:24 Pulse Rate 86 06/30/17 21:24 Respiratory Rate 18 07/01/17 00:30 Blood Pressure 141/90 06/30/17 21:24 O2 Sat by Pulse Oximetry (%) - Treatment Hospital Course: Detox Protocol Followed, Detoxed Safely, Responded well, Discharged Condition Good - Medication Discharge Medications: Ambulatory Orders Citalopram Hydrobromide [Celexa -] 20 mg PO DAILY 05/24/17 Citalopram Hydrobromide [Celexa -] 20 mg PO DAILY #30 tablet 06/27/17 Quetiapine Fumarate [Seroquel] 100 mg PO HS #30 tablet 06/29/17 - Diagnosis (1) Hyperlipidemia Current Visit: Yes Status: Chronic Qualifiers: Hyperlipidemia type: unspecified Qualified Code(s): E78.5 - Hyperlipidemia, unspecified (2) HTN (hypertension) Current Visit: Yes Status: Chronic - AMA Did Patient Leave Against Medical Advice: No
[2017-07-01] MEDS: CITALOPRAM HYDROBROMIDE 20 MG TABLET (FP) PO SCH (09:16)
[2017-07-01] MEDS: PRENATAL VITAMINS W/ FOLIC ACID TABLET (FP) PO SCH (09:16)
[2017-07-01] MEDS: NIFEdipine E.R. 30 MG TABLET (FP) PO SCH (09:16)
[2017-07-01 09:58] VITALS: BP 125/78; PULSE 98; TEMP 98.1
== END 2017-07-01 10:15 | disposition home or self-care (01) | DRG 774 ==
LOC: YASAS 09:55 → Y6N 12:52
PROVIDERS: ADMIT Internal Medicine; ATTEND Internal Medicine
PROC: HZ2ZZZZ Detoxification Services for Substance Abuse Treatment (ICD-10-PCS; principal; 2017-07-01)
DX: F10.230 Alcohol dependence with withdrawal, uncomplicated (principal); F14.20 Cocaine dependence, uncomplicated; F17.210 Nicotine dependence, cigarettes, uncomplicated; F15.10 Other stimulant abuse, uncomplicated; F19.24 Other psychoactive substance dependence with psychoactive substance-induced mood disorder; G40.509 Epileptic seizures related to external causes, not intractable, without status epilepticus; G47.00 Insomnia, unspecified; E11.9 Type 2 diabetes mellitus without complications; M54.5 Low back pain; G89.29 Other chronic pain
CPT/HCPCS: 36415; 80053; 80061; 81003; 81015; 82947; 83721; 85027; 86593; 93005; 93010

== ENCOUNTER 2019-01-03 11:41 | Inpatient (IN) | payer OTHER ==
[2019-01-03 12:31] VITALS: BMI 30.1
--- NOTE | 2019-01-03 13:27 | HP ---
CIWA Score Nausea/Vomitin Muscle Tremors: 2 Anxiety: 2 Agitation: 2 Paroxysmal Sweats: 1-Minimal Palms Moist Orientation: 0-Oriented Tacttile Disturbances: 1-Very Mild Itch/Numbness Auditory Disturbances: 1-Very Mild Visual Disturbances: 0-None Headache: 2-Mild CIWA-Ar Total Score: 13 - Admission Criteria OASAS Guidelines: Admission for Medically Managed Detox: Requires at least one of the followin. CIWA greater than 12 2. Seizures within the past 24 hours 3. Delirium tremens within the past 24 hours 4. Hallucinations within the past 24 hours 5. Acute intervention needed for co occurring medical disorder 6. Acute intervention needed for co occurring psychiatric disorder 7. Severe withdrawal that cannot be handled at a lower level of care (continued vomiting, continued diarrhea, abnormal vital signs) requiring intravenous medication and/or fluids 8. Patient presents the following: CIWA greater than 12 Admission Criteria Met: Admission criteria met Admission ROS BHS - HPI Chief Complaint: i need help to stop drinking alcohol Allergies/Adverse Reactions: Allergies Allergy/AdvReac Type Severity Reaction Status Date / Time No Known Allergies Allergy Verified 01/03/19 12:59 History of Present Illness: this 53 years old male iwth alcohol dependence,seeking detox,withdrawal symptom, multiple admissions in detox,keep relapsing, last detox 01/04/19 to 01/08/19 syncope history of hypertension,no compliance nicotine dependence 4 cigarettes/day, depression,anxiety,insomnia non compliance requested to see psychiatrist longest period of sobriety 3 years Exam Limitations: No Limitations - Ebola screening Have you traveled outside of the country in the last 21 days: No Have you had contact with anyone from an Ebola affected area: No Have you been sick,other than usual withdrawal symptoms: No - Review of Systems Constitutional: Loss of Appetite, Malaise, Night Sweats, Changes in sleep, Weakness EENT: reports: Nose Congestion Respiratory: reports: No Symptoms reported Cardiac: reports: No Symptoms Reported GI: reports: Nausea, Poor Appetite, Vomiting, Abdominal cramping : reports: No Symptoms Reported Musculoskeletal: reports: Back Pain, Muscle Pain Integumentary: reports: Dryness Neuro: reports: Headache, Tremors Endocrine: reports: No Symptoms Reported Hematology: reports: No Symptoms Reported Psychiatric: reports: No Sypmtoms Reported, Judgement Intact, Mood/Affect Appropiate, Orientated x3, Anxious, Depressed, other (insomnia) Other Systems: Reviewed and Negative Patient History - Patient Medical History Hx Anemia: No Hx Asthma: No Hx Chronic Obstructive Pulmonary Disease (COPD): No Hx Cancer: No Hx Cardiac Disorders: No Hx Congestive Heart Failure: No Hx Hypertension: Yes (on nifedipine, does not know the dosage) Hx Hypercholesterolemia: Yes Hx Pacemaker: No HX Cerebrovascular Accident: No Hx Seizures: Yes (alcohol related-last episode was in 2014) Hx Dementia: No Hx Diabetes: No Hx Gastrointestinal Disorders: No Hx Liver Disease: No Hx Genitourinary Disorders: No Hx Sexually Transmitted Disorders: No Hx Renal Disease (ESRD): No Hx Thyroid Disease: No Hx Human Immunodeficiency Virus (HIV): No (last negative 2015) Hx Hepatitis C: No Hx Depression: Yes (insomnia, on meds) Hx Suicide Attempt: No Hx Bipolar Disorder: No Hx Schizophrenia: No Other Medical History: anxiety,depression, - Patient Surgical History Past Surgical History: No Hx Neurologic Surgery: No Hx Cataract Extraction: No Hx Cardiac Surgery: No Hx Lung Surgery: No Hx Breast Surgery: No Hx Breast Biopsy: No Hx Abdominal Surgery: No Hx Appendectomy: No Hx Cholecystectomy: No Hx Genitourinary Surgery: No Hx Section: No Hx Orthopedic Surgery: No Hx Hysterectomy: No Anesthesia Reaction: No - PPD History Previous Implant?: Yes Documented Results: Negative w/o proof Implanted On Prior [facility] Admission?: Yes Date: 06/29/17 Results: negative PPD to be Administered?: Yes - Smoking Cessation Smoking history: Current every day smoker Have you smoked in the past 12 months: Yes Aproximately how many cigarettes per day: 3 Cigars Per Day: 0 Hx Chewing Tobacco Use: No Initiated information on smoking cessation: Yes 'Breaking Loose' booklet given: 01/03/19 - Substance & Tx. History Hx Alcohol Use: Yes Hx Substance Use: Yes Substance Use Type: Alcohol Hx Substance Use Treatment: Yes ([facility] 01/04/18 to 01/08/18) - Substances Abused Alcohol Route: Oral Frequency: Daily Amount used: 2 quarts of vodka: 2 40 ounces of malt liquor Age of first use: 25 Date of Last Use: 01/03/19 Family Disease History - Family Disease History Family Disease History: Heart Disease: Mother ( 2nd cva), Other: Father (alive, healthy), Mother, Brother (one - living - healthy), Sister (one - living - healthy) Admission Physical Exam [facility] - Vital Signs Vital Signs: Vital Signs - 24 hr 01/03/19 12:28 Temperature 96.8 F L Pulse Rate 88 Respiratory 18 Rate Blood Pressure 128/82 - Physical General Appearance: Yes: Moderate Distress, Tremorous, Irritable, Sweating, Anxious HEENTM: Yes: Normal ENT Inspection, VINAYAK, Pharynx Normal Respiratory: Yes: Lungs Clear, Normal Breath Sounds, No Respiratory Distress Neck: Yes: Within Normal Limits, Supple, Trachea in good position Breast: Yes: Within Normal Limits Cardiology: Yes: Within Normal Limits, Regular Rhythm, Regular Rate, S1, S2 Abdominal: Yes: Within Normal Limits, Normal Bowel Sounds, Soft Genitourinary: Yes: Within Normal Limits Back: Yes: Muscle Spasm Musculoskeletal: Yes: Back pain, Muscle Pain Extremities: Yes: Tremors Neurological: Yes: sound effects person II-XII NML intact, Alert, Motor Strength 5/5 Integumentary: Yes: Dry Lymphatic: Yes: Within Normal Limits - Diagnostic (1) Alcohol dependence with uncomplicated withdrawal Current Visit: No Status: Acute (2) Nicotine dependence Current Visit: No Status: Acute Qualifiers: Nicotine product type: cigarettes Substance use status: uncomplicated Qualified Code(s): F17.210 - Nicotine dependence, cigarettes, uncomplicated (3) Chronic back pain Current Visit: No Status: Chronic Qualifiers: Back pain location: back pain in unspecified location (4) Hyperlipidemia Current Visit: No Status: Chronic Qualifiers: Hyperlipidemia type: pure hypercholesterolemia Qualified Code(s): E78.00 - Pure hypercholesterolemia, unspecified; E78.0 - Pure hypercholesterolemia (5) H/O: hypertension Current Visit: No Status: Suspected (6) Syncope Current Visit: Yes Status: Acute (7) Seizure Current Visit: Yes Status: Acute Cleared for Admission [facility] - Detox or Rehab [facility] Level of Care: Medically Managed Detox Regimen/Protocol: Librium S Breath Alcohol Content Breath Alcohol Content: 0.064 Urine Drug Screen - Results Drug Screen Negative: Yes Inpatient Rehab Admission - Rehab Decision to Admit Inpatient rehab admission?: No
[2019-01-03] MEDS ORDERED: MAG HYDROX/AL HYDROX/SIMETH 30 ML UNIT-DOSE CUP PO PRN (13:34)
[2019-01-03] MEDS ORDERED: guaiFENesin/D-METHORPHAN HB 10 ML UNIT-DOSE CUPS PO PRN (13:34)
[2019-01-03] MEDS ORDERED: ACETAMINOPHEN 325 MG TABLET (FP) PO PRN (13:34)
[2019-01-03] MEDS ORDERED: IBUPROFEN 400 MG TABLET (FP) PO PRN (13:34)
[2019-01-03] MEDS ORDERED: hydrOXYzine PAMOATE 50 MG CAPSULE (FP) PO PRN (13:34)
[2019-01-03] MEDS ORDERED: LOPERAMIDE HCL 2 MG CAPSULE PO PRN (13:34)
[2019-01-03] MEDS ORDERED: MENTHOL/PHENOL 1 EACH UD MM PRN (13:34)
[2019-01-03] MEDS ORDERED: MAGNESIUM CITRATE 300 ML BOTTLE PO PRN (13:34)
[2019-01-03] MEDS ORDERED: P-EPHED 60MG/TRIPROLIDI 2.5MG TABLET PO PRN (13:34)
--- NOTE | 2019-01-03 13:58 | PN ---
S Progress Note Note: patient developes vasovagal reflex after blood test drawn,became diaphoretic, alert bp 133/81,p88,r20 blood for glucose 127 alert,no complaint,no sob,no dizziness did not want to go to emergency room
[2019-01-03] MEDS: chlordiazePOXIDE HCL 25 MG CAPSULE PO PRN ×2 (15:48→19:05)
--- NOTE | 2019-01-03 16:47 | CONSULT ---
[facility] Psychiatric Consult - Data Date of interview: 01/03/19 Admission source: [facility] Identifying data: Readmission to [facility], after one year of abstinence, for this 53 y/o male self-referred for detoxification (alcohol withdrawal) . Evaluated on 3 . Patient is single, no dependents, domiciled, currently unemployed but supported on occasional jobs + food stamps. Substance Abuse History: Patient endorses a long standing history of alcohol abuse. Admits to consuming 2 pints of vodka + 4 X 40 oz of beer on a daily basis. More details in current [facility] report as follows : Smoking history: Current every day smoker. Have you smoked in the past 12 months: Yes. Aproximately how many cigarettes per day: 3. Cigars Per Day: 0. Hx Chewing Tobacco Use: No. Initiated information on smoking cessation: Yes. 'Breaking Loose' booklet given: 01/03/19. - Substance & Tx. History. Hx Alcohol Use: Yes. Hx Substance Use: Yes. Substance Use Type: Alcohol. Hx Substance Use Treatment: Yes ([facility] 01/04/18 to 01/08/18). - Substances Abused. Alcohol. Route: Oral. Frequency: Daily. Amount used: 2 quarts of vodka: 2 40 ounces of malt liquor. Age of first use: 25. Date of Last Use: 01/03/19 Medical History: Remarkable for a history of syncope, diabetes mellitus, obesity , chronic lumbar pain, hemorrhoids and withdrawal seizures. Psychiatric History: In this interview, the patient aknowledges a history of one psychiatric hospitalization ([facility]) three years ago. Was diagnosed at the time with MDD and treated with citalopram 20 mg/day + seroquel 100 mg/hs. Mr Serna indicates that he disregarded his referrals to OPD care and got lost to follow-up. Chose the option of getting refills from his primary care providers (recent pharmacy claims are consistent with scripts dated 11/16/[address] Gonzalo Motley). Patient denies history of suicide attempts. Physical/Sexual Abuse/Trauma History: Patient denies history of abuse. Additional Comment: Drug Screen is negative. Mental Status Exam - Mental Status Exam Alert and Oriented to: Time, Place, Person Cognitive Function: Good Patient Appearance: Unkempt, Disheveled (unshaven) Mood: Nervous, Withdrawn Affect: Mood Congruent, Constricted Patient Behavior: Fatigued, Appropriate, Cooperative Speech Pattern: Clear, Appropriate Voice Loudness: Normal Thought Process: Intact, Goal Oriented Thought Disorder: Not Present Hallucinations: Denies Suicidal Ideation: Denies Homicidal Ideation: Denies Insight/Judgement: Poor Sleep: Poorly, Difficulty falling asleep Appetite: Fair Muscle strength/Tone: Normal Gait/Station: Normal Psychiatric Findings - Problem List ([place] 1, 2,3) (1) Alcohol dependence with uncomplicated withdrawal Current Visit: Yes Status: Acute (2) Nicotine dependence Current Visit: Yes Status: Chronic Qualifiers: Nicotine product type: cigarettes Substance use status: uncomplicated Qualified Code(s): F17.210 - Nicotine dependence, cigarettes, uncomplicated (3) Substance induced mood disorder Current Visit: Yes Status: Chronic (4) Depressive disorder Current Visit: Yes Status: Chronic Comment: By history. On medications. (5) Insomnia Current Visit: Yes Status: Chronic (6) Non-compliance with treatment Current Visit: Yes Status: Chronic - Initial Treatment Plan Initial Treatment Plan: Psychoeducation. Sleep hygiene. Detoxification. Support. Strategies for relapse prevention : discussed with the patient. Medications : celexa 20 mg po daily + seroquel 100 mg po hs. Side effects/ benefits of both drugs are discussed with patient. Mr Serna is agreeable with this plan of care. Observation.
[2019-01-03] MEDS: chlordiazePOXIDE HCL 25 MG CAPSULE PO SCH ×2 (17:07→22:24)
[2019-01-03] MEDS ORDERED: MELATONIN 5 MG TABLETS PO PRN (22:00)
[2019-01-03] MEDS: QUEtiapine FUMARATE 100 MG TABLET (FP) PO SCH (22:24)
[2019-01-03] MEDS: THIAMINE HCL 100 MG TABLET (FP) PO SCH (22:24)
[2019-01-04] MEDS: chlordiazePOXIDE HCL 25 MG CAPSULE PO SCH ×4 (05:25→22:15)
[2019-01-04] MEDS: chlordiazePOXIDE HCL 25 MG CAPSULE PO PRN ×3 (08:33→19:05)
[2019-01-04 10:06] LABS: HEMATOCRIT 39.9 % (35.4-49); HEMOGLOBIN 13.6 GM/dL (11.7-16.9); MCH 31.7 pg (25.7-33.7); MCHC 34.1 g/dl (32.0-35.9); MEAN PLT VOLUME 9.1 fl (7.5-11.1); PLATELET COUNT 316 K/MM3 (134-434); RDW 15.2 % (11.9-15.9); WHITE BLOOD COUNT 6.6 K/mm3 (4.0-10.0)
[2019-01-04] MEDS: PRENATAL VITAMINS W/ FOLIC ACID TABLET (FP) PO SCH (10:06)
[2019-01-04] MEDS: CITALOPRAM HYDROBROMIDE 20 MG TABLET (FP) PO SCH (10:06)
[2019-01-04 10:13] LABS: ALBUMIN 3.8 g/dl (3.4-5.0); ALK PHOS 73 U/L (45-117); ANION GAP 10 MMOL/L (8-16); BILIRUBIN,TOTAL 0.4 mg/dL (0.2-1); BLOOD UREA NITROGEN 21 mg/dL (7-18); CALCIUM 8.5 mg/dL (8.5-10.1); CHLORIDE 104 mmol/L (98-107); CHOLESTEROL 284 mg/dL (50-200); CO2 23 mmol/L (21-32); GLUCOSE,RANDOM 102 mg/dL (74-106); HDL CHOLESTEROL 68 mg/dL (40-60); POTASSIUM 4.1 mmol/L (3.5-5.1); SGOT/AST 18 U/L (15-37); SGPT/ALT 25 U/L (13-61); SODIUM 136 mmol/L (136-145); TOT PROT 7.4 g/dl (6.4-8.2); TRIGLYCERIDES 336 mg/dL (0-150)
--- NOTE | 2019-01-04 11:42 | EKG ---
Test Reason : Blood Pressure : / mmHG Vent. Rate : 088 BPM Atrial Rate : 088 BPM P-R Int : 132 ms QRS Dur : 074 ms QT Int : 360 ms P-R-T Axes : 039 015 006 degrees QTc Int : 435 ms NORMAL SINUS RHYTHM NORMAL ECG WHEN COMPARED WITH ECG OF 04-JAN-2018 14:17, NONSPECIFIC T WAVE ABNORMALITY NO LONGER EVIDENT IN LATERAL LEADS Confirmed by Leroy Barney MD ([id number]) on 01/04/2019 11:41:46 AM Referred By: Confirmed By:Leroy Barney MD
--- NOTE | 2019-01-04 11:43 | PN ---
S CIWA - CIWA Score Nausea/Vomitin-Mild Nausea/No Vomiting Muscle Tremors: 3 Anxiety: 1-Mildly Anxious Agitation: 3 Paroxysmal Sweats: 1-Minimal Palms Moist Orientation: 0-Oriented Tacttile Disturbances: 0-None Auditory Disturbances: 0-None Visual Disturbances: 0-None Headache: 1-Very Mild CIWA-Ar Total Score: 10 S Progress Note (SOAP) Subjective: tremor sweating restlessness anxiety Objective: 01/04/19 11:38 Vital Signs Temperature 98.6 F 01/04/19 09:58 Pulse Rate 90 01/04/19 09:58 Respiratory Rate 18 01/04/19 09:58 Blood Pressure 116/70 01/04/19 09:58 O2 Sat by Pulse Oximetry (%) Laboratory Last Values WBC 6.6 K/mm3 (4.0-10.0) 01/04/19 06:00 RBC 4.30 M/mm3 (4.00-5.60) 01/04/19 06:00 Hgb 13.6 GM/dL (11.7-16.9) 01/04/19 06:00 Hct 39.9 % (35.4-49) 01/04/19 06:00 MCV 93.0 fl (80-96) 01/04/19 06:00 MCH 31.7 pg (25.7-33.7) 01/04/19 06:00 MCHC 34.1 g/dl (32.0-35.9) 01/04/19 06:00 RDW 15.2 % (11.9-15.9) D 01/04/19 06:00 Plt Count 316 K/MM3 (134-434) 01/04/19 06:00 MPV 9.1 fl (7.5-11.1) 01/04/19 06:00 Sodium 136 mmol/L (136-145) 01/04/19 06:00 Potassium 4.1 mmol/L (3.5-5.1) 01/04/19 06:00 Chloride 104 mmol/L (98-107) 01/04/19 06:00 Carbon Dioxide 23 mmol/L (21-32) 01/04/19 06:00 Anion Gap 10 MMOL/L (8-16) 01/04/19 06:00 BUN 21 mg/dL (7-18) H 01/04/19 06:00 Creatinine 1.0 mg/dL (0.55-1.3) 01/04/19 06:00 Creat Clearance w eGFR > 60 (>60) 01/04/19 06:00 POC Glucometer 127 UNITS (80-120) 01/03/19 13:49 Random Glucose 102 mg/dL (74-106) 01/04/19 06:00 Calcium 8.5 mg/dL (8.5-10.1) 01/04/19 06:00 Total Bilirubin 0.4 mg/dL (0.2-1) 01/04/19 06:00 AST 18 U/L (15-37) 01/04/19 06:00 ALT 25 U/L (13-61) 01/04/19 06:00 Alkaline Phosphatase 73 U/L (45-117) 01/04/19 06:00 Total Protein 7.4 g/dl (6.4-8.2) 01/04/19 06:00 Albumin 3.8 g/dl (3.4-5.0) 01/04/19 06:00 Triglycerides 336 mg/dL (0-150) H 01/04/19 06:00 Cholesterol 284 mg/dL (50-200) H 01/04/19 06:00 Total LDL Cholesterol 176 mg/dL (5-100) H 01/04/19 06:00 HDL Cholesterol 68 mg/dL (40-60) H 01/04/19 06:00 HIV 1&2 Antibody Screen Negative 01/04/19 06:00 HIV P24 Antigen Negative 01/04/19 06:00 lab noted cholesterol elevation 01/04/19 11:43 discuss dietary and life style change avoid alcohol consumption to avoid risk of pancreatitis Assessment: 01/04/19 11:39 alcohol withdrawal sx 01/04/19 11:44 hypercholestrolemia Plan: continue detox begin omega 3 and crestor encourage return to primary care provider for fasting cholesterol serum level testing
[2019-01-04] MEDS: OMEGA-3 ACID ETHYL ESTERS (FATTY-ACIDS) 1 GM CAPSULE (FP) PO SCH ×2 (13:31→22:14)
[2019-01-04] MEDS: MAGNESIUM HYDROX 2400MG/30ML ORAL SUSPENSION 30 ML CUP PO PRN (19:31)
[2019-01-04] MEDS ORDERED: ROSUVASTATIN CA 20 MG TABLET (FP) PO SCH (22:00)
[2019-01-04] MEDS: THIAMINE HCL 100 MG TABLET (FP) PO SCH (22:14)
[2019-01-04] MEDS: QUEtiapine FUMARATE 100 MG TABLET (FP) PO SCH (22:14)
[2019-01-05] MEDS: NICOTINE POLACRILEX 2 MG GUM BC PRN ×5 (05:37→22:19)
[2019-01-05] MEDS: chlordiazePOXIDE HCL 25 MG CAPSULE PO SCH ×2 (05:37→10:20)
[2019-01-05] MEDS: chlordiazePOXIDE HCL 25 MG CAPSULE PO PRN ×3 (07:36→19:45)
--- NOTE | 2019-01-05 09:30 | PN ---
[facility] CIWA - CIWA Score Nausea/Vomitin-No Nausea/No Vomiting Muscle Tremors: 2 Anxiety: 2 Agitation: 1-Slight > Activity Paroxysmal Sweats: 1-Minimal Palms Moist Orientation: 1-Uncertain about Date Tacttile Disturbances: 0-None Auditory Disturbances: 0-None Visual Disturbances: 0-None Headache: 0-None Present CIWA-Ar Total Score: 7 BHS Progress Note (SOAP) Subjective: discuss lab with the patient that fasting cholesterol is necessary for anti cholesterol medication adjustment feeling ok today but worry about liver problem from alcohol drinking discuss alcohol related liver insults Objective: Vital Signs Temperature 98.6 F 01/05/19 09:18 Pulse Rate 97 H 01/05/19 09:18 Respiratory Rate 16 01/05/19 09:18 Blood Pressure 135/86 01/05/19 09:18 O2 Sat by Pulse Oximetry (%) Laboratory Last Values WBC 6.6 K/mm3 (4.0-10.0) 01/04/19 06:00 RBC 4.30 M/mm3 (4.00-5.60) 01/04/19 06:00 Hgb 13.6 GM/dL (11.7-16.9) 01/04/19 06:00 Hct 39.9 % (35.4-49) 01/04/19 06:00 MCV 93.0 fl (80-96) 01/04/19 06:00 MCH 31.7 pg (25.7-33.7) 01/04/19 06:00 MCHC 34.1 g/dl (32.0-35.9) 01/04/19 06:00 RDW 15.2 % (11.9-15.9) D 01/04/19 06:00 Plt Count 316 K/MM3 (134-434) 01/04/19 06:00 MPV 9.1 fl (7.5-11.1) 01/04/19 06:00 Sodium 136 mmol/L (136-145) 01/04/19 06:00 Potassium 4.1 mmol/L (3.5-5.1) 01/04/19 06:00 Chloride 104 mmol/L (98-107) 01/04/19 06:00 Carbon Dioxide 23 mmol/L (21-32) 01/04/19 06:00 Anion Gap 10 MMOL/L (8-16) 01/04/19 06:00 BUN 21 mg/dL (7-18) H 01/04/19 06:00 Creatinine 1.0 mg/dL (0.55-1.3) 01/04/19 06:00 Creat Clearance w eGFR > 60 (>60) 01/04/19 06:00 POC Glucometer 127 UNITS (80-120) 01/03/19 13:49 Random Glucose 102 mg/dL (74-106) 01/04/19 06:00 Calcium 8.5 mg/dL (8.5-10.1) 01/04/19 06:00 Total Bilirubin 0.4 mg/dL (0.2-1) 01/04/19 06:00 AST 18 U/L (15-37) 01/04/19 06:00 ALT 25 U/L (13-61) 01/04/19 06:00 Alkaline Phosphatase 73 U/L (45-117) 01/04/19 06:00 Total Protein 7.4 g/dl (6.4-8.2) 01/04/19 06:00 Albumin 3.8 g/dl (3.4-5.0) 01/04/19 06:00 Triglycerides 336 mg/dL (0-150) H 01/04/19 06:00 Cholesterol 284 mg/dL (50-200) H 01/04/19 06:00 Total LDL Cholesterol 176 mg/dL (5-100) H 01/04/19 06:00 HDL Cholesterol 68 mg/dL (40-60) H 01/04/19 06:00 RPR Titer Nonreactive (NONREACTIVE) 01/04/19 06:00 HIV 1&2 Antibody Screen Negative 01/04/19 06:00 HIV P24 Antigen Negative 01/04/19 06:00 lab noted encourage fasting cholesterol serum level with primary care provider or community health services such as urgent care mini clinic Assessment: 01/05/19 10:54 alcohol withdrawal sx Plan: continue alcohol detox
[2019-01-05] MEDS: CITALOPRAM HYDROBROMIDE 20 MG TABLET (FP) PO SCH (10:19)
[2019-01-05] MEDS: PRENATAL VITAMINS W/ FOLIC ACID TABLET (FP) PO SCH (10:20)
[2019-01-05] MEDS: OMEGA-3 ACID ETHYL ESTERS (FATTY-ACIDS) 1 GM CAPSULE (FP) PO SCH ×2 (10:25→22:16)
[2019-01-05] MEDS: chlordiazePOXIDE 5 MG CAPSULE PO SCH ×2 (17:21→22:16)
[2019-01-05] MEDS: MAGNESIUM HYDROX 2400MG/30ML ORAL SUSPENSION 30 ML CUP PO PRN (20:36)
[2019-01-05] MEDS: ROSUVASTATIN CA 20 MG TABLET (FP) PO SCH (22:16)
[2019-01-05] MEDS: QUEtiapine FUMARATE 100 MG TABLET (FP) PO SCH (22:16)
[2019-01-05] MEDS: THIAMINE HCL 100 MG TABLET (FP) PO SCH (22:16)
[2019-01-06] MEDS: chlordiazePOXIDE 5 MG CAPSULE PO SCH ×2 (05:25→10:10)
[2019-01-06] MEDS: chlordiazePOXIDE HCL 25 MG CAPSULE PO PRN ×2 (07:49→12:03)
[2019-01-06] MEDS: CITALOPRAM HYDROBROMIDE 20 MG TABLET (FP) PO SCH (10:09)
[2019-01-06] MEDS: PRENATAL VITAMINS W/ FOLIC ACID TABLET (FP) PO SCH (10:09)
[2019-01-06] MEDS: OMEGA-3 ACID ETHYL ESTERS (FATTY-ACIDS) 1 GM CAPSULE (FP) PO SCH ×2 (10:09→22:07)
--- NOTE | 2019-01-06 10:50 | PN ---
S CIWA - CIWA Score Nausea/Vomitin-No Nausea/No Vomiting Muscle Tremors: 1-None Visible, but [place] Anxiety: 1-Mildly Anxious Agitation: 1-Slight > Activity Paroxysmal Sweats: No Perspiration Orientation: 0-Oriented Tacttile Disturbances: 0-None Auditory Disturbances: 0-None Visual Disturbances: 0-None Headache: 1-Very Mild CIWA-Ar Total Score: 4 BHS Progress Note (SOAP) Subjective: feeling better less tremor mild sweating discuss cholesterol elevation and fasting cholesterol serum level may help determine proper dosage of anticholesterol medication Objective: 01/06/19 10:49 Vital Signs Temperature 97 F L 01/06/19 06:12 Pulse Rate 75 01/06/19 06:12 Respiratory Rate 18 01/06/19 06:12 Blood Pressure 132/85 01/06/19 06:12 O2 Sat by Pulse Oximetry (%) Laboratory Last Values WBC 6.6 K/mm3 (4.0-10.0) 01/04/19 06:00 RBC 4.30 M/mm3 (4.00-5.60) 01/04/19 06:00 Hgb 13.6 GM/dL (11.7-16.9) 01/04/19 06:00 Hct 39.9 % (35.4-49) 01/04/19 06:00 MCV 93.0 fl (80-96) 01/04/19 06:00 MCH 31.7 pg (25.7-33.7) 01/04/19 06:00 MCHC 34.1 g/dl (32.0-35.9) 01/04/19 06:00 RDW 15.2 % (11.9-15.9) D 01/04/19 06:00 Plt Count 316 K/MM3 (134-434) 01/04/19 06:00 MPV 9.1 fl (7.5-11.1) 01/04/19 06:00 Sodium 136 mmol/L (136-145) 01/04/19 06:00 Potassium 4.1 mmol/L (3.5-5.1) 01/04/19 06:00 Chloride 104 mmol/L (98-107) 01/04/19 06:00 Carbon Dioxide 23 mmol/L (21-32) 01/04/19 06:00 Anion Gap 10 MMOL/L (8-16) 01/04/19 06:00 BUN 21 mg/dL (7-18) H 01/04/19 06:00 Creatinine 1.0 mg/dL (0.55-1.3) 01/04/19 06:00 Creat Clearance w eGFR > 60 (>60) 01/04/19 06:00 POC Glucometer 127 UNITS (80-120) 01/03/19 13:49 Random Glucose 102 mg/dL (74-106) 01/04/19 06:00 Calcium 8.5 mg/dL (8.5-10.1) 01/04/19 06:00 Total Bilirubin 0.4 mg/dL (0.2-1) 01/04/19 06:00 AST 18 U/L (15-37) 01/04/19 06:00 ALT 25 U/L (13-61) 01/04/19 06:00 Alkaline Phosphatase 73 U/L (45-117) 01/04/19 06:00 Total Protein 7.4 g/dl (6.4-8.2) 01/04/19 06:00 Albumin 3.8 g/dl (3.4-5.0) 01/04/19 06:00 Triglycerides 336 mg/dL (0-150) H 01/04/19 06:00 Cholesterol 284 mg/dL (50-200) H 01/04/19 06:00 Total LDL Cholesterol 176 mg/dL (5-100) H 01/04/19 06:00 HDL Cholesterol 68 mg/dL (40-60) H 01/04/19 06:00 RPR Titer Nonreactive (NONREACTIVE) 01/04/19 06:00 HIV 1&2 Antibody Screen Negative 01/04/19 06:00 HIV P24 Antigen Negative 01/04/19 06:00 lab noted Assessment: 01/06/19 10:49 mild alcohol withdrawal sx Plan: continue detox
[2019-01-06] MEDS: chlordiazePOXIDE HCL 10 MG CAPSULE PO SCH ×2 (17:30→22:07)
[2019-01-06] MEDS: NICOTINE POLACRILEX 2 MG GUM BC PRN ×2 (17:30→22:10)
[2019-01-06] MEDS ORDERED: HYDROCORTISONE 2.5% TOPICAL CREAM 30 GM TUBE TP SCH (22:00)
[2019-01-06] MEDS: THIAMINE HCL 100 MG TABLET (FP) PO SCH (22:07)
[2019-01-06] MEDS: QUEtiapine FUMARATE 100 MG TABLET (FP) PO SCH (22:07)
[2019-01-06] MEDS: ROSUVASTATIN CA 20 MG TABLET (FP) PO SCH (22:08)
[2019-01-07] MEDS: chlordiazePOXIDE HCL 10 MG CAPSULE PO SCH (05:49)
[2019-01-07] MEDS: NICOTINE POLACRILEX 2 MG GUM BC PRN (05:50)
[2019-01-07 06:08] VITALS: BP 132/77; PULSE 66; TEMP 96.7
--- NOTE | 2019-01-07 19:13 | DS ---
[facility] Detox Discharge Summary Admission Date: 01/03/19 Discharge Date: 01/07/19 - History Present History: Alcohol Dependence Additional Comments: PATIENT REFERRED TO [facility] ([place], [place]) FOR AFTERCARE. AT TIME OD DISCHARGE FROM DETOX UNIT. PATIENT REPORTS THAT HE WAS PREVIOUSLY PRESCRIBED NIFEDIPINE ON OUTPATIENT BASIS FOR TREATMENT OF HTN. HOWEVER, PATIENT WAS NOT PRESCRIBED NIFEDIPINE WHILE ADMITTED OFR DETOX AND ACCORDING TO PHARMACIST MEÑO AT [facility] ([place], [place]) , PATIENT HAS NOT BEEN PRESCRIBED NIFEDIPINE FOR > 1 YEAR. PATIENT ADVISED TO FOLLOW-UP WITH CYTOPATHOLOGY TECHNOLOGIST WHEN POSSIBLE AFTER DISCHARGE FROM DETOX UNIT FOR GENERAL MEDICAL EVALUATION AND FOR HISTORY OF HTN AND OF HYPERCHOLESTEROLEMIA. PATIENT VERBALIZED UNDERSTANDING OF ALL RECOMMENDATIONS. PRESCRIPTION FOR CRESTOR ( STARTED WHILE PATIENT WAS ADMITTED FOR DETOX) SENT TO [facility] FOR AFTERCARE UNTIL PATIENT IS ABLE TO SEE CYTOPATHOLOGY TECHNOLOGIST. PATIENT WAS DISCHARGED FROM DETOX UNIT IN STABLE MEDICAL CONDITION. Pertinent Past History: Depressive Disorder, Anxiety, Insomnia, History of Seizure (Related to ETOH- Withdrawal), HTN, Hypercholesterolemia, Chronic Back Pain. - Physical Exam Results Vital Signs: Vital Signs Temperature 96.7 F L 01/07/19 06:07 Pulse Rate 66 01/07/19 06:07 Respiratory Rate 18 01/07/19 06:30 Blood Pressure 132/77 01/07/19 06:07 O2 Sat by Pulse Oximetry (%) Pertinent Admission Physical Exam Findings: WITHDRAWAL SYMPTOMS. Laboratory Tests 01/03/19 01/04/19 01/04/19 13:49 06:00 06:00 WBC 6.6 RBC 4.30 Hgb 13.6 Hct 39.9 MCV 93.0 MCH 31.7 MCHC 34.1 RDW 15.2 D Plt Count 316 MPV 9.1 Sodium Potassium Chloride Carbon Dioxide Anion Gap BUN Creatinine Creat Clearance w eGFR POC Glucometer 127 Random Glucose Calcium Total Bilirubin AST ALT Alkaline Phosphatase Total Protein Albumin Triglycerides Cholesterol Total LDL Cholesterol HDL Cholesterol RPR Titer HIV 1&2 Antibody Screen Negative HIV P24 Antigen Negative 01/04/19 01/04/19 06:00 06:00 WBC RBC Hgb Hct MCV MCH MCHC RDW Plt Count MPV Sodium 136 Potassium 4.1 Chloride 104 Carbon Dioxide 23 Anion Gap 10 BUN 21 H Creatinine 1.0 Creat Clearance w eGFR > 60 POC Glucometer Random Glucose 102 Calcium 8.5 Total Bilirubin 0.4 AST 18 ALT 25 Alkaline Phosphatase 73 Total Protein 7.4 Albumin 3.8 Triglycerides 336 H Cholesterol 284 H Total LDL Cholesterol 176 H HDL Cholesterol 68 H RPR Titer Nonreactive HIV 1&2 Antibody Screen HIV P24 Antigen LABS NOTED. - Treatment Hospital Course: Detox Protocol Followed, Detoxed Safely, Responded well, Discharged Condition Good Patient has Accepted a Rehab Referral to: PT. [facility] ([place], [place]). - Medication Discharge Medications: Ambulatory Orders Citalopram Hydrobromide [Celexa -] 20 mg PO DAILY #30 tablet 01/08/18 Quetiapine Fumarate [Seroquel -] 100 mg PO HS 01/03/19 Rosuvastatin Calcium [Crestor] 20 mg PO HS 14 Days #14 tablet 01/07/19 - Diagnosis (1) Alcohol dependence with uncomplicated withdrawal Status: Acute (2) Chronic back pain Status: Chronic Qualifiers: Back pain location: back pain in unspecified location Back pain laterality : unspecified Qualified Code(s): M54.9 - Dorsalgia, unspecified; G89.29 - Other chronic pain (3) Hyperlipidemia Status: Chronic Qualifiers: Hyperlipidemia type: pure hypercholesterolemia Qualified Code(s): E78.00 - Pure hypercholesterolemia, unspecified; E78.0 - Pure hypercholesterolemia (4) Nicotine dependence Status: Chronic Qualifiers: Nicotine product type: cigarettes Substance use status: uncomplicated Qualified Code(s): F17.210 - Nicotine dependence, cigarettes, uncomplicated (5) Seizure Status: Acute (6) Syncope Status: Acute Qualifiers: Syncope type: unspecified Qualified Code(s): R55 - Syncope and collapse (7) Depressive disorder Status: Chronic (8) Insomnia Status: Chronic Qualifiers: Insomnia type: unspecified Qualified Code(s): G47.00 - Insomnia, unspecified (9) Non-compliance with treatment Status: Chronic (10) Substance induced mood disorder Status: Chronic (11) H/O: hypertension Status: Suspected - AMA Did Patient Leave Against Medical Advice: No
== END 2019-01-07 08:50 | disposition home or self-care (01) | DRG 775 ==
LOC: YASAS 11:41 → Y3N 14:38
PROVIDERS: ADMIT Surgery; ATTEND Surgery
PROC: HZ2ZZZZ Detoxification Services for Substance Abuse Treatment (ICD-10-PCS; principal; 2019-01-03)
DX: F10.230 Alcohol dependence with withdrawal, uncomplicated (principal); F17.210 Nicotine dependence, cigarettes, uncomplicated; F41.8 Other specified anxiety disorders; F32.9 Major depressive disorder, single episode, unspecified; F19.24 Other psychoactive substance dependence with psychoactive substance-induced mood disorder; R55 Syncope and collapse; E78.5 Hyperlipidemia, unspecified; E78.00 Pure hypercholesterolemia, unspecified; I10 Essential (primary) hypertension; E11.9 Type 2 diabetes mellitus without complications; M54.5 Low back pain; G89.29 Other chronic pain; Z86.69 Personal history of other diseases of the nervous system and sense organs; Z91.19 Patient's noncompliance with other medical treatment and regimen
CPT/HCPCS: 36415; 80053; 80061; 82962; 83721; 85027; 86593; 87389; 93005; 93010

== ENCOUNTER 2019-05-27 11:07 | Inpatient (IN) | payer OTHER ==
[2019-05-27 12:43] VITALS: BMI 29.5
--- NOTE | 2019-05-27 14:53 | HP ---
<Georgette Eckert - Last Filed: 05/27/19 15:17> CIWA Score Nausea/Vomitin-No Nausea/No Vomiting Muscle Tremors: 4-Moderate,w/Arms Extend Anxiety: 4-Mod. Anxious/Guarded Agitation: 1-Slight > Activity Paroxysmal Sweats: 2 Orientation: 0-Oriented Tacttile Disturbances: 0-None Auditory Disturbances: 0-None Visual Disturbances: 0-None Headache: 2-Mild CIWA-Ar Total Score: 13 - Admission Criteria OASAS Guidelines: Admission for Medically Managed Detox: Requires at least one of the followin. CIWA greater than 12 2. Seizures within the past 24 hours 3. Delirium tremens within the past 24 hours 4. Hallucinations within the past 24 hours 5. Acute intervention needed for co occurring medical disorder 6. Acute intervention needed for co occurring psychiatric disorder 7. Severe withdrawal that cannot be handled at a lower level of care (continued vomiting, continued diarrhea, abnormal vital signs) requiring intravenous medication and/or fluids 8. Admission [facility] Chief Complaint: 54 y/o M with PMH depression, HTN, HLD, anxiety who presents for detox from alcohol. Allergies/Adverse Reactions: Allergies Allergy/AdvReac Type Severity Reaction Status Date / Time No Known Allergies Allergy Verified 05/27/19 12:31 History of Present Illness: 54 y/o M with PMH HLD, depression, HTN, anxiety who presents for detox from alcohol. Per pt, his last drink was this AM. He drank 2 40 oz beer. States that he drinks daily 4x40 oz of beer + 1 pint of vodka. Longest sobriety January-February 2019. At the time, was driven by his need to prevent withdrawal. Started drinking at age 25. Endorsed past alcohol withdrawal seizures. States that he was drinking because he felt depressed. During this time, also endorses cocaine use 3x/week. Used via smoking $50-100 at a time. Denies IVDA. Was in detox multiple times previously at [facility] in 2017, 2018. PMH: as above PsxH: denies meds: celexa 20mg PO qd, seroquel 100mg PO qd, nifedipine 20 mg qd (last took 2 days ago) allergies: NKDA FH: mother - HTN, DM ; . SH: lives in the [place]. 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 smokes 3-4 cigarettes x past 5 yrs. alcohol use and cocaine as above. denies other drugs; used to use heroin in the past. - Ebola screening Have you traveled outside of the country in the last 21 days: No Have you had contact with anyone from an Ebola affected area: No Have you been sick,other than usual withdrawal symptoms: No Do you have a fever: No - Review of Systems Constitutional: Diaphoresis, Other (+weight gain) EENT: reports: No Symptoms Reported Respiratory: reports: No Symptoms reported Cardiac: reports: No Symptoms Reported GI: reports: No Symptoms Reported : reports: No Symptoms Reported Musculoskeletal: reports: No Symptoms Reported Integumentary: reports: No Symptoms Reported Neuro: reports: Headache, Tremors, Weakness Endocrine: reports: Change in Weight (+weight gain) Hematology: reports: No Symptoms Reported Psychiatric: reports: Judgement Intact, Orientated x3 Patient History - Patient Medical History Hx Anemia: No Hx Asthma: No Hx Chronic Obstructive Pulmonary Disease (COPD): No Hx Cancer: No Hx Cardiac Disorders: No Hx Congestive Heart Failure: No Hx Hypertension: Yes (on nifedipine, does not know the dosage) Hx Hypercholesterolemia: Yes Hx Pacemaker: No HX Cerebrovascular Accident: No Hx Seizures: Yes (alcohol related-last episode was in 2014) Hx Dementia: No Hx Diabetes: No Hx Gastrointestinal Disorders: No Hx Liver Disease: No Hx Genitourinary Disorders: No Hx Sexually Transmitted Disorders: No Hx Renal Disease (ESRD): No Hx Thyroid Disease: No Hx Human Immunodeficiency Virus (HIV): No (last negative 2015) Hx Hepatitis C: No Hx Depression: Yes (insomnia, on meds) Hx Suicide Attempt: No Hx Bipolar Disorder: No Hx Schizophrenia: No Other Medical History: anxiety - Patient Surgical History Past Surgical History: No Hx Neurologic Surgery: No Hx Cataract Extraction: No Hx Cardiac Surgery: No Hx Lung Surgery: No Hx Breast Surgery: No Hx Breast Biopsy: No Hx Abdominal Surgery: No Hx Appendectomy: No Hx Cholecystectomy: No Hx Genitourinary Surgery: No Hx Section: No Hx Orthopedic Surgery: No Hx Hysterectomy: No Anesthesia Reaction: No - PPD History Documented Results: Negative w/proof Date: 01/05/19 Results: negative PPD to be Administered?: No - Reproductive History Patient is a Female of Child Bearing Age (11 -55 yrs old): No - Smoking Cessation Smoking history: Current every day smoker Have you smoked in the past 12 months: Yes Aproximately how many cigarettes per day: 4 Cigars Per Day: 0 Hx Chewing Tobacco Use: No Initiated information on smoking cessation: Yes 'Breaking Loose' booklet given: 05/27/19 - Substance & Tx. History Hx Alcohol Use: Yes (4 40 oz and 1 pint of vodka per day) Hx Substance Use: Yes (cocaine) Substance Use Type: Cocaine Hx Substance Use Treatment: Yes ([facility] 2018, 2019) - Substances abused Cocaine Substance route: Smoking Frequency: 3-6 times per week Amount used: $50 -100 Age of first use: 30 Date of last use: 05/25/19 Other Substance route: Oral Frequency: Daily Amount used: 4 40oz malt liquor, 1 pint vodka Age of first use: 25 Date of last use: 05/27/19 Family Disease History - Family Disease History Family Disease History: Heart Disease: Mother ( 2nd cva, HTN, DM), Other : Father (alive, healthy), Mother, Brother (one - living - healthy), Sister ( one - living - healthy) Admission Physical Exam S - Vital Signs Vital Signs: Vital Signs - 24 hr 05/27/19 12:37 Temperature 98.9 F Pulse Rate 99 H Respiratory 20 Rate Blood Pressure 168/118 H - Physical General Appearance: Yes: Within Normal Limits, Alcohol on Breath HEENTM: Yes: Within Normal Limits Respiratory: Yes: Lungs Clear, Normal Breath Sounds Neck: Yes: Supple Breast: Yes: Breast Exam Deferred Cardiology: Yes: Regular Rhythm, Regular Rate, S1, S2 Abdominal: Yes: Soft Genitourinary: Yes: Within Normal Limits Back: Yes: Within Normal Limits Musculoskeletal: Yes: Within Normal Limits, full range of Motion Extremities: Yes: Other (+old scarring UE) Neurological: Yes: 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 On medications. (6) Hyperlipidemia Current Visit: Yes Status: Chronic Qualifiers: Hyperlipidemia type: pure hypercholesterolemia Qualified Code(s): E78.00 - Pure hypercholesterolemia, unspecified; E78.0 - Pure hypercholesterolemia Cleared for Admission [facility] - Detox or Rehab [facility] Level of Care: Medically Managed Detox Regimen/Protocol: Librium Breathalyzer - Breathalyzer Breathalyzer: 0.018 Urine Drug Screen - Test Device Lot number: [id number] Expiration date: 03/08/21 - Control Is test valid?: Yes - Results Drug screen NEGATIVE: No Urine drug screen results: [facility] Inpatient Rehab Admission - Rehab Decision to Admit Inpatient rehab admission?: No <Robert Bell - Last Filed: 05/27/19 15:22> CIWA Score - Admission Criteria OAS Guidelines: Admission for Medically Managed Detox: Requires at least one of the followin. CIWA greater than 12 2. Seizures within the past 24 hours 3. Delirium tremens within the past 24 hours 4. Hallucinations within the past 24 hours 5. Acute intervention needed for co occurring medical disorder 6. Acute intervention needed for co occurring psychiatric disorder 7. Severe withdrawal that cannot be handled at a lower level of care (continued vomiting, continued diarrhea, abnormal vital signs) requiring intravenous medication and/or fluids 8. Admission Physical Exam [facility] - Vital Signs Vital Signs: Vital Signs - 24 hr 05/27/19 12:37 Temperature 98.9 F Pulse Rate 99 H Respiratory 20 Rate Blood Pressure 168/118 H
[2019-05-27] MEDS ORDERED: MELATONIN 5 MG TABLETS PO PRN (15:09)
[2019-05-27] MEDS ORDERED: chlordiazePOXIDE HCL 25 MG CAPSULE PO SCH (15:09)
[2019-05-27] MEDS ORDERED: chlordiazePOXIDE HCL 10 MG CAPSULE PO PRN (15:09)
[2019-05-27] MEDS ORDERED: BISMUTH SUBSALICYLATE 524 MG/30 ML UD PO PRN (15:09)
[2019-05-27] MEDS ORDERED: ACETAMINOPHEN 325 MG TABLET (FP) PO PRN ×2 (15:09)
[2019-05-27] MEDS ORDERED: MAG HYDROX/AL HYDROX/SIMETH 30 ML UNIT-DOSE CUP PO PRN (15:09)
[2019-05-27] MEDS ORDERED: MENTHOL/PHENOL 1 EACH UD MM PRN (15:09)
--- NOTE | 2019-05-27 15:29 | PN ---
Teaching Attending Note Name of Resident: Georgette Eckert ATTENDING PHYSICIAN STATEMENT I saw and evaluated the patient. I reviewed the resident's note and discussed the case with the resident. I agree with the resident's findings and plan as documented. SUBJECTIVE: Patient is in moderate withdrawals from alcohol. OBJECTIVE: Patient is qualified for admission to detoxification from alcohol. ASSESSMENT AND PLAN: Admito to Detox for Alcohol.
[2019-05-27] MEDS: NIFEdipine E.R. 30 MG TABLET (FP) PO SCH (16:48)
[2019-05-27] MEDS: chlordiazePOXIDE HCL 25 MG CAPSULE PO SCH ×2 (16:48→22:11)
--- NOTE | 2019-05-27 17:26 | CONSULT ---
[facility] Psychiatric Consult - Data Date of interview: 05/27/19 Admission source: [facility] Identifying data: Patient is a 54 year old single male, without children, domiciled, but unemployed (denies receiving financial assistance). This is one of multiple admissions for patient. Patient admitted to for alcohol and cocaine dependence. Substance Abuse History: - Smoking Cessation. Smoking history: Current every day smoker. Have you smoked in the past 12 months: Yes. Aproximately how many cigarettes per day: 4. Cigars Per Day: 0. Hx Chewing Tobacco Use: No. Initiated information on smoking cessation: Yes. 'Breaking Loose' booklet given : 05/27/19. - Substance & Tx. History. Hx Alcohol Use: Yes (4 40 oz and 1 pint of vodka per day). Hx Substance Use: Yes (cocaine). Substance Use Type: Cocaine. Hx Substance Use Treatment: Yes ([facility] 2018, 2019). - Substances abused. Cocaine. Substance route: Smoking. Frequency: 3-6 times per week. Amount used: $50 -100. Age of first use: 30. Date of last use: 05/25/19. * * Other. Substance route: Oral. Frequency: Daily. Amount used: 4 40oz malt liquor, 1 pint vodka. Age of first use: 25. Date of last use: 05/27/19 Medical History: hypertension, hyperlipidemia Psychiatric History: Patient denies h/o psychiatric hospitalization and suicide attempt. He reports one admission to the psychiatric emergency room last year at [facility] after feeling depressed but was discharged the following day. Mr. Serna was receiving outpatient psychiatric care at [facility] but discontined care five months ago. He continues to receive psychotropic medications from his primary care physician. Mr. Serna is prescribed Celexa 20mg + Seroquel 100mg. (external records medications reviewed and medications verified. 30 day script of celexa 20mg + Seroquel 100mg on 05/20/19). Patient reports medication compliance. Diagnosis of Depression. At present he reports stable mood. Physical/Sexual Abuse/Trauma History: denies. Mental Status Exam - Mental Status Exam Alert and Oriented to: Time, Place, Person Cognitive Function: Good Patient Appearance: Well Groomed Mood: Euthymic Affect: Mood Congruent Patient Behavior: Appropriate, Cooperative Speech Pattern: Appropriate Voice Loudness: Normal Thought Process: Goal Oriented Thought Disorder: Not Present Hallucinations: Denies Suicidal Ideation: Denies Homicidal Ideation: Denies Insight/Judgement: Poor Sleep: Fair Appetite: Fair Muscle strength/Tone: Normal Gait/Station: Normal Psychiatric Findings - Problem List ([place] 1, 2,3) (1) Alcohol dependence with uncomplicated withdrawal Current Visit: Yes Status: Acute (2) Cocaine dependence Current Visit: Yes Status: Chronic Qualifiers: Substance use status: uncomplicated Qualified Code(s): F14.20 - Cocaine dependence, uncomplicated (3) Depressive disorder Current Visit: Yes Status: Chronic Comment: By history. On medications. - Initial Treatment Plan Initial Treatment Plan: Psychoeducation provided. Detoxification in progress. Will order Celexa 20mg + Seroquel 50mg (reduce dosage as per patient's request) . Benefits and side effects discussed. Verbal consent given.
[2019-05-27 17:43] LABS: HEMATOCRIT 38.9 % (35.4-49); HEMOGLOBIN 13.5 GM/dL (11.7-16.9); MCH 32.5 pg (25.7-33.7); MCHC 34.8 g/dl (32.0-35.9); MEAN CELL VOLUME 93.6 fl (80-96); MEAN PLT VOLUME 8.9 fl (7.5-11.1); PLATELET COUNT 318 K/MM3 (134-434); RBC 4.16 M/mm3 (4.00-5.60); WHITE BLOOD COUNT 7.7 K/mm3 (4.0-10.0)
[2019-05-27 17:46] LABS: ALBUMIN 3.6 g/dl (3.4-5.0); BILIRUBIN,TOTAL 0.2 mg/dL (0.2-1); BLOOD UREA NITROGEN 15.5 mg/dL (7-18); CALCIUM 8.5 mg/dL (8.5-10.1); CREATININE 1.3 mg/dL (0.55-1.3); POTASSIUM 4.1 mmol/L (3.5-5.1)
[2019-05-27] MEDS: chlordiazePOXIDE HCL 25 MG CAPSULE PO PRN (19:32)
[2019-05-27] MEDS ORDERED: QUEtiapine FUMARATE 100 MG TABLET (FP) PO SCH (22:00)
[2019-05-27] MEDS: QUEtiapine FUMARATE 50 MG TABLET PO SCH (22:11)
[2019-05-27] MEDS: THIAMINE HCL 100 MG TABLET (FP) PO SCH (22:11)
[2019-05-28] MEDS: chlordiazePOXIDE HCL 25 MG CAPSULE PO SCH ×4 (06:14→22:45)
[2019-05-28] MEDS: NICOTINE POLACRILEX 2 MG GUM BUC PRN (06:16)
[2019-05-28] MEDS: PRENATAL VITAMINS W/ FOLIC ACID TABLET (FP) PO SCH (10:00)
[2019-05-28] MEDS: CITALOPRAM HYDROBROMIDE 20 MG TABLET (FP) PO SCH (10:00)
[2019-05-28] MEDS: NIFEdipine E.R. 30 MG TABLET (FP) PO SCH (10:00)
--- NOTE | 2019-05-28 10:01 | PN ---
S CIWA - CIWA Score Nausea/Vomitin-No Nausea/No Vomiting Muscle Tremors: 3 Anxiety: 3 Agitation: 1-Slight > Activity Paroxysmal Sweats: 3 Orientation: 0-Oriented Tacttile Disturbances: 0-None Auditory Disturbances: 0-None Visual Disturbances: 0-None Headache: 2-Mild CIWA-Ar Total Score: 12 S Progress Note (SOAP) Subjective: c/o sweats, anxiety, headache, and shakes. Objective: 05/28/19 10:01 Vital Signs 05/28/19 05/28/19 05/28/19 03:30 07:28 09:41 Temperature 97.9 F 97.9 F Pulse Rate 79 100 H Respiratory 18 20 18 Rate Blood Pressure 154/111 H 135/68 Lab Results WBC 7.7 K/mm3 (4.0-10.0) 05/27/19 15:20 RBC 4.16 M/mm3 (4.00-5.60) 05/27/19 15:20 Hgb 13.5 GM/dL (11.7-16.9) 05/27/19 15:20 Hct 38.9 % (35.4-49) 05/27/19 15:20 MCV 93.6 fl (80-96) 05/27/19 15:20 MCHC 34.8 g/dl (32.0-35.9) 05/27/19 15:20 RDW 13.0 % (11.9-15.9) D 05/27/19 15:20 Plt Count 318 K/MM3 (134-434) 05/27/19 15:20 Sodium 139 mmol/L (136-145) 05/27/19 15:20 Potassium 4.1 mmol/L (3.5-5.1) 05/27/19 15:20 Chloride 105 mmol/L (98-107) 05/27/19 15:20 Carbon Dioxide 27 mmol/L (21-32) 05/27/19 15:20 Anion Gap 7 MMOL/L (8-16) L 05/27/19 15:20 BUN 15.5 mg/dL (7-18) 05/27/19 15:20 Creatinine 1.3 mg/dL (0.55-1.3) 05/27/19 15:20 Random Glucose 106 mg/dL (74-106) 05/27/19 15:20 Calcium 8.5 mg/dL (8.5-10.1) 05/27/19 15:20 Labs noted. Assessment: 05/28/19 10:01 AOX3, in no acute distress. Full ROM, ambulating in the unit. withdrawal symptoms. Plan: continue detox.
--- NOTE | 2019-05-28 10:04 | PN ---
Psychiatric Progress Note Vital Signs: Vital Signs Period Temp Pulse Resp BP Sys/Hernández Pulse Ox Last 24 Hr 97.5 F-98.9 F 79-100 18-20 131-168/68-118 Date of Session: 05/28/19 Chief Complaint:: " Can you increase my seroquel" HPI: Patient admitted to for alcohol and cocaine dependence. Patient reports difficulty sleeping through the night. ROS: Patient is coherent, alert and oriented X3. Current Medications: Active Medications Generic Name Dose Route Start Last Admin Trade Name Freq PRN Reason Stop Dose Admin Acetaminophen 650 mg 05/27/19 15:09 Tylenol - PO Q6H PRN PAIN LEVEL 4 - 6 Acetaminophen 650 mg 05/27/19 15:09 Tylenol - PO Q6H PRN FEVER Al Hydroxide/Mg Hydroxide 30 ml 05/27/19 15:09 Mylanta Oral Suspension - PO Q6H PRN DYSPEPSIA Bismuth Subsalicylate 524 mg 05/27/19 15:09 Pepto-Bismol - PO Q1H PRN DIARRHEA Chlordiazepoxide HCl 10 mg 05/30/19 05:00 Librium - PO 05/30/19 23:01 [id number] NARENDRA Chlordiazepoxide HCl 10 mg 05/31/19 05:00 Librium - PO 05/31/19 17:01 Q12H NARENDRA Chlordiazepoxide HCl 10 mg 05/30/19 00:00 Librium - PO 05/31/19 00:00 Q4H PRN WITHDRAWAL(CONT SUBST) Chlordiazepoxide HCl 10 mg 06/01/19 05:00 Librium - PO 06/01/19 05:01 ONCE@0500 ONE Chlordiazepoxide HCl 50 mg 05/27/19 17:00 05/28/19 10:00 Librium - PO 05/28/19 23:01 50 mg [id number] NARENDRA Administration Chlordiazepoxide HCl 25 mg 05/29/19 05:00 Librium - PO 05/29/19 23:01 [id number] NARENDRA Chlordiazepoxide HCl 25 mg 05/27/19 15:34 05/27/19 19:32 Librium - PO 05/29/19 23:59 25 mg Q4H PRN Administration WITHDRAWAL(CONT SUBST) Citalopram Hydrobromide 20 mg 05/28/19 10:00 05/28/19 10:00 Celexa - PO 20 mg DAILY NARENDRA Administration Eucalyptus/Menthol/Phenol/Sorbitol 1 each 05/27/19 15:09 Cepastat Lozenge - MM 06/02/19 15:09 Q4H PRN SORE THROAT Ibuprofen 400 mg 05/27/19 15:09 Motrin - PO Q6H PRN PAIN LEVEL 1 - 3 Magnesium Hydroxide 30 ml 05/27/19 15:09 Milk Of Magnesia - PO PRN PRN CONSTIPATION Melatonin 5 mg 05/27/19 15:09 Melatonin PO HS PRN INSOMNIA Nicotine Polacrilex 2 mg 05/27/19 15:09 05/28/19 06:16 Nicorette Gum - BUC 2 mg Q2H PRN Administration NICOTINE REPLACEMENT RX Nifedipine 30 mg 05/27/19 17:00 05/28/19 10:00 Procardia Xl - PO 30 mg DAILY NARENDRA Administration Multivit/Folic Acid/Iron 1 tab 05/28/19 10:00 05/28/19 10:00 Vitamins (Sjr) - PO 1 tab DAILY NARENDRA Administration Quetiapine Fumarate 50 mg 05/27/19 22:00 05/27/19 22:11 Seroquel - PO 50 mg HS NARENDRA Administration Thiamine HCl 100 mg 05/27/19 22:00 05/27/19 22:11 Vitamin B1 - PO 100 mg HS NARENDRA Administration Medication(s) Change(s): Yes. Will d/c seroquel 50mg HS and order seroquel 100mg HS Current Side Effect: No Lab tests ordered: No Lab tests reviewed: Yes Provider note:: Patient ordered seroquel 50mg HS last night as per his request. Patient is prescribed seroquel 100mg HS. Patient requesting an increase in seroquel as he was unable to sleep through the night. Seroquel was initially lowered to 50mg as patient did not want to experience oversedation as he is accepting librium. Will d/c seroquel 50mg and order seroquel 100mg HS. Benefits and side effects discussed. Verbal consent given. Total face to face time:: 25 Mental Status Exam - Mental Status Exam Alert and Oriented to: Time, Place, Person Cognitive Function: Good Patient Appearance: Well Groomed Mood: Euthymic Affect: Mood Congruent Patient Behavior: Cooperative Speech Pattern: Appropriate Voice Loudness: Normal Thought Process: Goal Oriented Thought Disorder: Not Present Hallucinations: Denies Suicidal Ideation: Denies Homicidal Ideation: Denies Insight/Judgement: Poor Sleep: Poorly Appetite: Fair Muscle strength/Tone: Normal Gait/Station: Normal Psychiatric Treatment Plan - Problem List (1) Alcohol dependence with uncomplicated withdrawal Current Visit: Yes (2) Cocaine dependence Current Visit: Yes Qualifiers: Substance use status: uncomplicated Qualified Code(s): F14.20 - Cocaine dependence, uncomplicated (3) Depressive disorder Current Visit: Yes Comment: By history. On medications.
[2019-05-28] MEDS: chlordiazePOXIDE HCL 25 MG CAPSULE PO PRN ×2 (12:20→19:03)
[2019-05-28] MEDS: QUEtiapine FUMARATE 50 MG TABLET PO SCH (22:45)
[2019-05-28] MEDS: THIAMINE HCL 100 MG TABLET (FP) PO SCH (22:45)
[2019-05-29] MEDS ORDERED: chlordiazePOXIDE 5 MG CAPSULE PO SCH (05:00)
[2019-05-29] MEDS: chlordiazePOXIDE HCL 25 MG CAPSULE PO SCH ×4 (05:39→22:06)
[2019-05-29] MEDS: MAGNESIUM HYDROX 2400MG/30ML ORAL SUSPENSION 30 ML CUP PO PRN (06:13)
[2019-05-29] MEDS: chlordiazePOXIDE HCL 25 MG CAPSULE PO PRN ×3 (07:51→19:58)
[2019-05-29] MEDS: PRENATAL VITAMINS W/ FOLIC ACID TABLET (FP) PO SCH (10:04)
[2019-05-29] MEDS: CITALOPRAM HYDROBROMIDE 20 MG TABLET (FP) PO SCH (10:05)
[2019-05-29] MEDS: NIFEdipine E.R. 30 MG TABLET (FP) PO SCH (10:05)
[2019-05-29] MEDS: NICOTINE POLACRILEX 2 MG GUM BUC PRN ×2 (10:05→17:29)
--- NOTE | 2019-05-29 11:17 | PN ---
S CIWA - CIWA Score Nausea/Vomitin-No Nausea/No Vomiting Muscle Tremors: None Anxiety: 3 Agitation: 3 Paroxysmal Sweats: 2 Orientation: 0-Oriented Tacttile Disturbances: 0-None Auditory Disturbances: 0-None Visual Disturbances: 0-None Headache: 0-None Present CIWA-Ar Total Score: 8 BHS Progress Note (SOAP) Subjective: PATIENT C/O ANXIETY, RESTLESSNESS AND NIGHT SWEATS Objective: 05/29/19 11:16 Laboratory Tests 05/27/19 05/27/19 05/27/19 15:20 15:20 15:20 WBC 7.7 RBC 4.16 Hgb 13.5 Hct 38.9 MCV 93.6 MCH 32.5 MCHC 34.8 RDW 13.0 D Plt Count 318 MPV 8.9 Sodium 139 Potassium 4.1 Chloride 105 Carbon Dioxide 27 Anion Gap 7 L BUN 15.5 Creatinine 1.3 Est GFR (CKD-EPI)AfAm 71.69 Est GFR (CKD-EPI)NonAf 61.86 Random Glucose 106 Calcium 8.5 Total Bilirubin 0.2 AST 46 H ALT 56 Alkaline Phosphatase 68 Total Protein 7.0 Albumin 3.6 RPR Titer Nonreactive Vital Signs Temperature 97.7 F 05/29/19 09:12 Pulse Rate 121 H 05/29/19 09:12 Respiratory Rate 18 05/29/19 09:12 Blood Pressure 154/91 05/29/19 09:12 O2 Sat by Pulse Oximetry (%) PE ALERT AND ORIENTED X 3 SKIN WARM AND DRY +PERRLA, EOMS INTACT BL EXT FULL ROM, AMB AD BRENDA ANXIOUS, PACING IN BOND Assessment: 05/29/19 11:17 WITHDRAWAL SX Plan: LABS REVIEWED WITH PATIENT CONTINUE DETOX ENCOURAGE FLUIDS MONITOR CLINICALLY
[2019-05-29] MEDS: THIAMINE HCL 100 MG TABLET (FP) PO SCH (22:06)
[2019-05-29] MEDS: QUEtiapine FUMARATE 50 MG TABLET PO SCH (22:06)
[2019-05-30] MEDS ORDERED: chlordiazePOXIDE HCL 10 MG CAPSULE PO PRN
[2019-05-30] MEDS ORDERED: chlordiazePOXIDE HCL 10 MG CAPSULE PO SCH (05:00)
[2019-05-30] MEDS: chlordiazePOXIDE HCL 10 MG CAPSULE PO SCH ×4 (05:53→22:34)
[2019-05-30] MEDS: chlordiazePOXIDE HCL 10 MG CAPSULE PO PRN ×2 (08:45→19:39)
[2019-05-30] MEDS: NIFEdipine E.R. 30 MG TABLET (FP) PO SCH (10:37)
[2019-05-30] MEDS: PRENATAL VITAMINS W/ FOLIC ACID TABLET (FP) PO SCH (10:37)
[2019-05-30] MEDS: CITALOPRAM HYDROBROMIDE 20 MG TABLET (FP) PO SCH (10:37)
[2019-05-30] MEDS: IBUPROFEN 400 MG TABLET (FP) PO PRN (12:43)
[2019-05-30] MEDS: MAGNESIUM HYDROX 2400MG/30ML ORAL SUSPENSION 30 ML CUP PO PRN (13:05)
--- NOTE | 2019-05-30 14:04 | PN ---
S CIWA - CIWA Score Nausea/Vomitin-No Nausea/No Vomiting Muscle Tremors: 2 Anxiety: 4-Mod. Anxious/Guarded Agitation: 3 Paroxysmal Sweats: No Perspiration Orientation: 0-Oriented Tacttile Disturbances: 0-None Auditory Disturbances: 0-None Visual Disturbances: 0-None Headache: 0-None Present CIWA-Ar Total Score: 9 BHS Progress Note (SOAP) Subjective: Tremors, Anxious. Objective: PATIENT A & O X 3, OBSERVED AMBULATING ON UNIT WITH ASSISTANCE OF A CANE. IN NO ACUTE DISTRESS. 05/30/19 14:02 Vital Signs Temperature 97.7 F 05/30/19 13:11 Pulse Rate 87 05/30/19 13:11 Respiratory Rate 18 05/30/19 13:11 Blood Pressure 128/73 05/30/19 13:11 O2 Sat by Pulse Oximetry (%) Laboratory Tests 05/27/19 05/27/19 05/27/19 15:20 15:20 15:20 WBC 7.7 RBC 4.16 Hgb 13.5 Hct 38.9 MCV 93.6 MCH 32.5 MCHC 34.8 RDW 13.0 D Plt Count 318 MPV 8.9 Sodium 139 Potassium 4.1 Chloride 105 Carbon Dioxide 27 Anion Gap 7 L BUN 15.5 Creatinine 1.3 Est GFR (CKD-EPI)AfAm 71.69 Est GFR (CKD-EPI)NonAf 61.86 Random Glucose 106 Calcium 8.5 Total Bilirubin 0.2 AST 46 H ALT 56 Alkaline Phosphatase 68 Total Protein 7.0 Albumin 3.6 RPR Titer Nonreactive LABS NOTED. Assessment: 05/30/19 14:03 WITHDRAWAL SYMPTOMS. Plan: CONTINUE DETOX. PATIENT SCHEDULED FOR D/C FROM DETOX UNIT TOMORROW.
[2019-05-30] MEDS ORDERED: BENZOCAINE 20 % GEL TUBE MM PRN (19:24)
[2019-05-30] MEDS ORDERED: cloNIDine HCL 0.1 MG TABLET PO PRN (20:07)
[2019-05-30] MEDS: QUEtiapine FUMARATE 50 MG TABLET PO SCH (22:34)
[2019-05-30] MEDS: THIAMINE HCL 100 MG TABLET (FP) PO SCH (22:34)
[2019-05-31] MEDS: IBUPROFEN 400 MG TABLET (FP) PO PRN (03:20)
[2019-05-31] MEDS ORDERED: chlordiazePOXIDE HCL 10 MG CAPSULE PO SCH (05:00)
[2019-05-31] MEDS ORDERED: chlordiazePOXIDE HCL 10 MG CAPSULE PO ONE (05:00)
--- NOTE | 2019-05-31 07:32 | PN ---
[facility] Progress Note Note: Patient is scheduled for discharge today. Scripts for 30 days supply of medications(Celxa 20 mg/day, Seroquel 100 mg/hs) are electronically transmitted to [facility] at [address] [place] [id number]
--- NOTE | 2019-05-31 09:03 | DS ---
[facility] Detox Discharge Summary Admission Date: 05/27/19 Discharge Date: 05/31/19 - History Present History: Alcohol Dependence, Cocaine Dependence - Physical Exam Results Vital Signs: Vital Signs Temperature 97.5 F L 05/31/19 06:00 Pulse Rate 71 05/31/19 06:00 Respiratory Rate 18 05/31/19 06:00 Blood Pressure 138/90 05/31/19 06:00 O2 Sat by Pulse Oximetry (%) Pertinent Admission Physical Exam Findings: pt arrived to [facility] Laboratory Tests 05/27/19 05/27/19 05/27/19 15:20 15:20 15:20 WBC 7.7 RBC 4.16 Hgb 13.5 Hct 38.9 MCV 93.6 MCH 32.5 MCHC 34.8 RDW 13.0 D Plt Count 318 MPV 8.9 Sodium 139 Potassium 4.1 Chloride 105 Carbon Dioxide 27 Anion Gap 7 L BUN 15.5 Creatinine 1.3 Est GFR (CKD-EPI)AfAm 71.69 Est GFR (CKD-EPI)NonAf 61.86 Random Glucose 106 Calcium 8.5 Total Bilirubin 0.2 AST 46 H ALT 56 Alkaline Phosphatase 68 Total Protein 7.0 Albumin 3.6 RPR Titer Nonreactive today pt is aaox3 ambulating no acute distress no s/s of withdrawal sx - Treatment Hospital Course: Detox Protocol Followed, Detoxed Safely, Responded well, Discharged Condition Good, Rehab Referral Accepted Patient has Accepted a Rehab Referral to: pt declined rehab; referral provided - Medication Discharge Medications: Ambulatory Orders Nifedipine [Procardia Xl] 30 mg PO DAILY 05/27/19 Citalopram Hydrobromide [Celexa -] 20 mg PO DAILY #30 tablet 05/31/19 Quetiapine Fumarate [Seroquel] 100 mg PO HS #30 tablet 05/31/19 - Diagnosis (1) Alcohol dependence with uncomplicated withdrawal Current Visit: Yes Status: Chronic (2) Hypertension Current Visit: Yes Status: Chronic Qualifiers: Hypertension type: essential hypertension Qualified Code(s): I10 - Essential (primary) hypertension (3) Anxiety Current Visit: Yes Status: Chronic (4) Cocaine dependence Current Visit: Yes Status: Chronic Qualifiers: Substance use status: uncomplicated Qualified Code(s): F14.20 - Cocaine dependence, uncomplicated (5) Depressive disorder Current Visit: Yes Status: Chronic (6) Hyperlipidemia Current Visit: Yes Status: Chronic Qualifiers: Hyperlipidemia type: pure hypercholesterolemia Qualified Code(s): E78.00 - Pure hypercholesterolemia, unspecified; E78.0 - Pure hypercholesterolemia (7) Chronic back pain Current Visit: Yes Status: Chronic Qualifiers: Back pain location: back pain in unspecified location Back pain laterality : unspecified Qualified Code(s): M54.9 - Dorsalgia, unspecified; G89.29 - Other chronic pain (8) Insomnia Current Visit: No Status: Chronic Qualifiers: Insomnia type: unspecified Qualified Code(s): G47.00 - Insomnia, unspecified (9) Nicotine dependence Current Visit: Yes Status: Chronic Qualifiers: Nicotine product type: cigarettes Substance use status: uncomplicated Qualified Code(s): F17.210 - Nicotine dependence, cigarettes, uncomplicated (10) Substance induced mood disorder Current Visit: No Status: Chronic - AMA Did Patient Leave Against Medical Advice: No (pt declined rehab; going home and has appt today)
[2019-05-31 09:27] VITALS: BP 134/92; PULSE 83; TEMP 97.9
[2019-06-01] MEDS ORDERED: chlordiazePOXIDE HCL 10 MG CAPSULE PO ONE (05:00)
== END 2019-05-31 09:05 | disposition home or self-care (01) | DRG 774 ==
LOC: YASAS 11:07 → Y6N 15:19
PROVIDERS: ADMIT Surgery; ATTEND Surgery
PROC: HZ2ZZZZ Detoxification Services for Substance Abuse Treatment (ICD-10-PCS; principal; 2019-05-27)
DX: F10.230 Alcohol dependence with withdrawal, uncomplicated (principal); F14.20 Cocaine dependence, uncomplicated; F17.210 Nicotine dependence, cigarettes, uncomplicated; F41.9 Anxiety disorder, unspecified; F32.9 Major depressive disorder, single episode, unspecified; F19.24 Other psychoactive substance dependence with psychoactive substance-induced mood disorder; I10 Essential (primary) hypertension; M54.5 Low back pain; G89.29 Other chronic pain; G47.00 Insomnia, unspecified; E78.5 Hyperlipidemia, unspecified; Z86.69 Personal history of other diseases of the nervous system and sense organs
CPT/HCPCS: 36415; 80053; 85027; 86593; J0735